=== PATIENT | female | born 1990 | race Caucasian/White ===

== ENCOUNTER → 2023-04-30 08:51 | Outpatient (BNVA) | payer BC, SELFPAY | PROVIDERS: Visit Provider Physician Assistant ==

== ENCOUNTER 2023-05-07 08:01 | Outpatient (AMB) | payer BC, SELFPAY ==
--- NOTE | 2023-05-07 10:31 | A.OFFVIS_ITS ---
Intake VS Expanded 05/07/23 10:44 BP 162/86 H Height 5 ft 4 in Weight 277 lb 8 oz BMI 47.6 Body Fat % 48.8 Body Fat Mass 135.6 Fat Free Mass 142.2 Visceral Fat Rating 15 Body Water % 48.8 Body Water Mass 101.8 Basal Metabolic Rate/Score 2,054 Intake Visit Reasons: TV [employer] SAWMILL SWL BMI 47.7 Allergies doxycycline Allergy (Intermediate, Verified 05/07/23 10:31) Vomiting Medication List - Last Reconciled 05/07/23 by Jamel Richardson MD coenzyme Q10 (Ultra CoQ10) 75 mg PO DAILY labetalol mg PO multivitamin 1 tab PO DAILY omega 0-zrl-rgm-fish oil 300-1,000 mg (Fish Oil) 1 cap PO DAILY HPI TV [employer] SAWMI[facility] SWL BMI 47.7 HPI Details Start time: 10.27am, End time: 11.13am ?I spent 41 minutes speaking with the patient on the phone plus an additional 5 minutes reviewing and updating records for a total of 46 minutes HPI Comments History of Present Illness Details Previous weight loss efforts: Weight watchers, Keto, low carb diet Wakes up: 7am, Sleeps: 11pm Breakfast: 9am (Kinyarwanda yogurt) Lunch: 1pm (as dinner) Dinner: 8.30-9pm (pasta, chicken, tacos Snacks: 5pm (chips and salsa, crackers and cheese), 9pm (snacks) Exercise: walking outside occasionally, Has a stationary bike at home Fluids: Coffee (12oz/day, sugar and milk), tea: none, soda: 1-2 cups/wk (diet soda), juice: none, ETOH: 1-2/month [facility] Medical History (Updated 05/07/23 @ 10:36 by Jamel Richardson MD) Infertility associated with anovulation Hypertension Morbid obesity Surgical History (Updated 04/30/23 @ 09:25 by WAGNER Gutierrez) History of D&C Family History (Updated 04/30/23 @ 09:20 by WAGNER Gutierrez) Mother No problems noted. 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 Plan for lap sleeve gastrectomy. If diaphragmatic or ventral hernias are present at time of surgery, these will be repaired laparoscopically as well. Risks and complications were discussed in detail including possible conversion to an open procedure, anastomotic leak, bleeding requiring transfusion, small bowel obstruction, , DVT and pulmonary embolism, cardiac, or pulmonary complications, as detention complications such as anastomotic ulcer, insufficient weight loss and vitamin deficiencies. I emphasized the importance of close follow-up, adherence to instructions and good communication. 2. Nutritional counseling. Start with 2 CELEBRATE REBUILD protein (buy at [facility] [employer]) shakes (ONE scoop EACH in 8oz low fat unsweetened almond milk each) at 8am-10am and 11am-1pm, 1 protein bar (CELEBRATE protein bars, buy at [facility]) at 2pm-4pm, HALF protein bar at 5-6pm, dinner at 7pm (10 forks of protein and 10 forks of salad/vegetables) AND one more protein bar after dinner at 9pm-11pm. So you do 2 protein shakes, 2.5 protein bars and one meal per day. Meal to include lean meat (beef, fish, pork, turkey, chicken), or tamazight yogurt, or egg whites, or beans with a salad with olive oil and fruits (berries, pears, apples, kiwi). Avoid salt, breads, potatoes, rice, pasta, desserts. 3. Each shake would be drunk slowly, like coffee in a period of 2 hours. 4. Cut each bar in 4 pieces and eat each piece in 30min ?to make each bar last 2 hours. 5. I emphasized the importance of measuring accurately the food portion and measure it when serving the food in plate 6. The meal portions include 10 full-size forks of meat and 10 full-size forks of salad. You always eat the meat portion but you can replace up to 5 forks for salad/vegetables with rice, potatoes or pasta, or a fruit ?if you like. The less you do it the better weight loss will be. 7. One full-size fork is what it can be scooped on the fork without falling aside and not what can be bit with the fork. Use regular forks like those you find in a typical restaurant. 8.? Please send me weight measurements as soon as possible and then once a week. Always include your diet and exercise plan. 9. Start stationary bike at a resistance level of 4.0 Increase level by 1.0 every 3 min to a max level of 10.0. Stay at this level for 3 min and then return to level 4.0 and repeat same steps until 300 calories are burned. Velocity target is 12mph and heart rate is 145 bpm. Goal is to burn 2000 calories per week on exercise, which means either 300 calories daily, or 400 calories 5 days per week, or 500 calories 4 days per week, or 650 calories 3 days per week. 10.?Although you have difficulty conceiving, weight loss can improve dramatically your ability to conceive and it is important of avoiding and for at least 18 months postoperatively and has been discussed at the infosession. 11. Goal is to lose at least 1.5-2lbs per week 12. Goal to lose 10% of your weight before surgery, which is about 27lbs. Ultimate weight goal: 250lbs before surgery 13. Please follow the diet plan exactly without any change. If you don't like something about the plan or you feel hungry you need to communicate with me so I can help you revise the plan. You should not change the plan yourself. (2) Hypertension: Code(s): I10 - Essential (primary) hypertension (3) Infertility associated with anovulation: Code(s): N97.0 - Female infertility associated with anovulation Orders: Orders Insulin Today E66.01 - Morbid (severe) obesity due to excess calories, I10 - Essential (primary) hypertension, N97.0 - Female infertility associated with anovulation Lipid Panel Today E66.01 - Morbid (severe) obesity due to excess calories, I10 - Essential (primary) hypertension, N97.0 - Female infertility associated with anovulation IRON PROFILE Today E66.01 - Morbid (severe) obesity due to excess calories, I10 - Essential (primary) hypertension, N97.0 - Female infertility associated with anovulation Zinc Today E66.01 - Morbid (severe) obesity due to excess calories, I10 - Essential (primary) hypertension, N97.0 - Female infertility associated with anovulation Comprehensive Met. Panel Today E66.01 - Morbid (severe) obesity due to excess calories, I10 - Essential (primary) hypertension, N97.0 - Female infertility associated with anovulation Vitamin A Today E66.01 - Morbid (severe) obesity due to excess calories, I10 - Essential (primary) hypertension, N97.0 - Female infertility associated with anovulation PTHI Today E66.01 - Morbid (severe) obesity due to excess calories, I10 - Essential (primary) hypertension, N97.0 - Female infertility associated with anovulation TSH reflex Free T4 Today E66.01 - Morbid (severe) obesity due to excess calories, I10 - Essential (primary) hypertension, N97.0 - Female infertility associated with anovulation H Pylori Breath Test Today E66.01 - Morbid (severe) obesity due to excess artem jenifer, I10 - Essential (primary) hypertension, N97.0 - Female infertility associated with anovulation Vitamin D 25-OH Total Today E66.01 - Morbid (severe) obesity due to excess calories, I10 - Essential (primary) hypertension, N97.0 - Female infertility associated with anovulation FL upper GI w air Today E66.01 - Morbid (severe) obesity due to excess calories, I10 - Essential (primary) hypertension, N97.0 - Female infertility associated with anovulation Complete Blood Count Auto Diff Today E66.01 - Morbid (severe) obesity due to excess calories, I10 - Essential (primary) hypertension, N97.0 - Female infertility associated with anovulation Vitamin B12 and Folate Today E66.01 - Morbid (severe) obesity due to excess calories, I10 - Essential (primary) hypertension, N97.0 - Female infertility associated with anovulation Vitamin B1 Today E66.01 - Morbid (severe) obesity due to excess calories, I10 - Essential (primary) hypertension, N97.0 - Female infertility associated with anovulation C Reactive Protein Today E66.01 - Morbid (severe) obesity due to excess calories, I10 - Essential (primary) hypertension, N97.0 - Female infertility associated with anovulation Ferritin Today E66.01 - Morbid (severe) obesity due to excess calories, I10 - Essential (primary) hypertension, N97.0 - Female infertility associated with anovulation Hemoglobin A1c Today E66.01 - Morbid (severe) obesity due to excess calories, I10 - Essential (primary) hypertension, N97.0 - Female infertility associated with anovulation US abdomen comp w elastography Today E66.01 - Morbid (severe) obesity due to excess calories, I10 - Essential (primary) hypertension, N97.0 - Female infertility associated with anovulation XR chest 2V Today E66.01 - Morbid (severe) obesity due to excess calories, I10 - Essential (primary) hypertension, N97.0 - Female infertility associated with anovulation ECG 12 lead EKG Today E66.01 - Morbid (severe) obesity due to excess calories, I10 - Essential (primary) hypertension, N97.0 - Female infertility associated with anovulation Referrals Nutrition/Dietitian Referral E66.01 - Morbid (severe) obesity due to excess calories, I10 - Essential (primary) hypertension, N97.0 - Female infertility associated with anovulation Behavioral Health Referral E66.01 - Morbid (severe) obesity due to excess calories, I10 - Essential (primary) hypertension, N97.0 - Female infertility associated with anovulation Telehealth Telehealth Location of provider rendering services: practice address Location of patient: address on file Patient Identification confirmed using: Name, : Yes Telehealth method: voice only Patient verbally consented to treatment: Yes Patient verbally consented to billing insurance company: Yes Patient informed of any privacy concerns related to visit: Yes Minutes spent on Phone/Video with Pt.: 46 Coding Level of Care Code Tele New Pt Level 4 (02685) Diagnoses Morbid obesity E66.01 Hypertension I10 Infertility associated with anovulation N97.0 Time Spent (min) 46
[2023-05-07 10:44] VITALS: BP 162/86; BMI 47.6
== END 2023-05-07 11:13 | disposition home or self-care (01) ==
LOC: HO.HBS 08:01
PROVIDERS: Visit Provider Surgery
DX: E66.01 Morbid (severe) obesity due to excess calories (principal); Z68.42 Body mass index [BMI] 45.0-49.9, adult; I10 Essential (primary) hypertension; N97.0 Female infertility associated with anovulation
CPT/HCPCS: 99443

== ENCOUNTER → 2023-05-07 08:01 | Outpatient (BNVA) | payer BC, SELFPAY | PROVIDERS: Visit Provider Surgery ==

== ENCOUNTER 2023-05-14 09:02 | Outpatient (REF) | payer BC, SELFPAY ==
--- NOTE | ~2023-05-14 | XR_ITS ---
EXAMINATION: XR CHEST 2 VIEWS CLINICAL INFORMATION: Morbid obesity. COMPARISON: None. TECHNIQUE: Frontal and lateral views of the chest were obtained. FINDINGS: The heart, great vessels, pulmonary vasculature and mediastinum are normal. The lungs show no focal infiltrate, effusion or pneumothorax. There is no acute osseous abnormality. XR/XR chest 2V IMPRESSION: No active cardiopulmonary disease.
[2023-05-14 09:29] LABS: MANUAL DIFF FLAG NO
[2023-05-14 09:57] LABS: Basophils Percent Auto 0.4 % (0-2); Eosinophils Absolute Auto 0.4 X10*3/uL (0.0-0.4); Eosinophils Percent Auto 5.4 % (0-4); Hematocrit 39.5 % (37.0-47.0); Hemoglobin 13.9 g/dl (12.0-16.0); Imm Gran Abs Auto 0.02 X10*3/uL (0.00-0.03); Imm Gran Pct Auto 0.3 % (0.0-0.4); Lymphocytes Absolute Auto 1.9 X10*3/uL (1.2-4.9); Lymphocytes Percent Auto 27.8 % (20-40); Mean Corpuscular HGB Conc 35.2 g/dl (31.0-35.0); Mean Corpuscular Hemoglobin 30.8 pg (27.0-33.0); Mean Corpuscular Volume 87.6 fL (80.0-98.0); Mean Platelet Volume 10.1 fL (9.4-12.3); Monocytes Absolute Auto 0.4 X10*3/uL (0.1-1.2); Monocytes Percent Auto 6.4 % (2-11); Neutrophils Absolute Auto 4.1 x10*3/uL (2.0-8.3); Neutrophils Percent Auto 59.7 % (45-73); Platelet Count 313 X10*3/uL (160-400); Red Blood Count 4.51 X10*6/uL (4.20-5.50); Red Cell Distribution Width 11.8 % (11.0-16.0); White Blood Count 6.8 X10*3/uL (4.8-10.8)
[2023-05-14 10:29] LABS: Alanine Aminotransferase 26 U/L (0-31); Albumin Level 4.2 g/dL (3.5-5.0); Alkaline Phosphatase 80 U/L (39-117); Anion Gap 13 (12-20); Aspartate Amino Transferase 13 U/L (5-31); Bilirubin Total 1.1 mg/dL (0.0-1.0); Blood Urea Nitrogen 9 mg/dL (9-16); C Reactive Protein 1.11 mg/dL (< or = 0.50); Calcium 9.3 mg/dL (8.4-10.2); Carbon Dioxide 22 mmol/L (22-29); Chloride 109 mmol/L (96-108); Cholesterol 165 mg/dL (<200); Estimated Glomerular Filt Rate > 60; Glucose Random 104 mg/dL (60-115); HDL Cholesterol 40 mg/dL (>40); Iron 142 mcg/dL (30-160); LDL Cholesterol Calculated 108 mg/dL (<100); Percent Iron Saturation 47 % (15-50); Sodium 140 mmol/L (135-145); Total Iron Binding Capacity 305 mcg/dL (228-428); Total Protein 6.8 g/dL (6.5-8.0); Triglycerides 86 mg/dL (<150); Unsaturated Iron Binding 163 ug/dL
[2023-05-14 10:47] LABS: Ferritin 86 ng/mL (10-122); Insulin 8 uU/mL (2-29); TSH reflex Free T4 0.95 uIU/mL (0.32-4.0); Vitamin D 25-OH Total 36.1 ng/mL (>30)
[2023-05-18 01:28] LABS: Vitamin A 35 mcg/dL (38-98)
[2023-05-18 04:23] LABS: Zinc 64 mcg/dL (60-130)
[2023-05-19 08:03] LABS: Vitamin B1 <6 nmol/L (8-30)
== END 2023-05-14 09:03 | disposition home or self-care (01) ==
LOC: HO.LAB 09:02
PROVIDERS: PCP Nurse Practitioner; Visit Provider Surgery
DX: E66.01 Morbid (severe) obesity due to excess calories (principal); I10 Essential (primary) hypertension; N97.0 Female infertility associated with anovulation
CPT/HCPCS: 36415; 71046; 80053; 80061; 82306; 82607; 82728; 82746; 83036; 83525; 83540; 83970; 84425; 84443; 84590; 84630; 85025; 86140

== ENCOUNTER → 2023-05-18 07:26 | Outpatient (REF) | payer BC, SELFPAY ==
--- NOTE | 2023-05-18 07:31 | ECG_ITS ---
Test Reason : e66.01 Blood Pressure : / mmHG Vent. Rate : 078 BPM Atrial Rate : 078 BPM P-R Int : 160 ms QRS Dur : 084 ms QT Int : 398 ms P-R-T Axes : 049 018 035 degrees QTc Int : 453 ms Normal sinus rhythm Normal ECG No previous ECGs available Referred By: Jamel Richardson Electronically Signed By:PALOMO LOZANO MD
== END ==
LOC: HO.CARD 07:26
PROVIDERS: Visit Provider Surgery
DX: I10 Essential (primary) hypertension (principal); E66.01 Morbid (severe) obesity due to excess calories; N97.0 Female infertility associated with anovulation
CPT/HCPCS: 93005

== ENCOUNTER 2023-06-08 08:04 | Outpatient (AMB) | payer BC, SELFPAY ==
--- OUTSIDE RECORDS SUMMARY | 2023-06-08 08:07 | XMS_ITS | Continuity of Care Document ---
Author Name Unknown Organization [facility] e Medicine Address [address] [place] [address], [address]t [address] [place] [phone]- Care Team Providers Care Field Services Manager Name Role Phone Ron ASTROBIOLOGIST, Nancy Mensah Primary Care Physician Encounter [facility] Date(s): 03/03/21 - 03/10/21 [facility] Reproductive Medicine [address] [place] [address], 4th [address] [place] [id number]- Attending Physician: Not on Staff, Attending MD Referring Physician: Lexi Sanchez MD Allergies, Adverse Reactions, Alerts Substance Reaction Severity Status doxycycline 1 Persistent Mild Active 1vomits Medications 1cc syringe with 27 gauge 1/2inch needle 1cc syringe with 27 gauge 1/2inch needle, See Instructions, # 10 each, Refills 0, Tot. Refills 0, Maintenance, Used to give medication., 02/22/21 16:12:00 EDT, Compound, 162.56, cm, 02/18/21 8:28:00 EDT, Height, 117.5, kg, 06/28/20 14:02:00 EST, Dry W... Start Date: 02/22/21 Status: Ordered 3cc 22 gauge 1 1/2in needles 3cc 22 gauge 1 1/2in needles, See Instructions, # 10 each, Refills 5, Tot. Refills 5, Maintenance, for mixing medication, 02/22/21 16:12:00 EDT, Compound, 162.56, cm, 02/18/21 8:28:00 EDT, Height, 117.5, kg, 06/28/20 14:02:00 EST, Dry Weight Start Date: 02/22/21 Status: Ordered CoQ10 See Instructions, By Mouth Daily, 0 Refills, Maintenance, 09/10/20 16:22:00 EST, Partial fill upon patient request if the prescription is for a schedule II opioid drug. Start Date: 09/10/20 Status: Ordered doxycycline hyclate 100 mg oral tablet 1 tablet = 100 mg, By Mouth, 2 times a day, Start the day you start Gonal F injections, # 14 tablet, 5 Refills, Maintenance, 02/22/21 16:13:00 EDT, [facility], Partial fill upon patient request if the prescription is for a schedule II opio... Start Date: 02/22/21 Status: Ordered Fish Oil By Mouth, 0 Refills, Maintenance, 09/10/20 16:21:00 EST, Partial fill upon patient request if the prescription is for a schedule II opioid drug. Start Date: 09/10/20 Status: Ordered Gonal-F 1050 units subcutaneous injection = 300 International_Units, Subcutaneous Injection, 2 times a day, # 6 kit, 5 Refills, Maintenance, 02/22/21 16:13:00 EDT, [facility], Partial fill upon patient request if the prescriptionis for a schedule II opioid drug., 300 Internationa... Start Date: 02/22/21 Status: Ordered Labetalol = 150 mg, By Mouth, 2 times a day, 0 Refills, Maintenance, 01/19/20 14:55:00 EDT Start Date: 01/19/20 Status: Ordered microdose lupron 40mcg/0.1ml microdose lupron 40mcg/0.1ml, See Instructions, # 5 mL, Refills 5, Tot. Refills 5, Maintenance, 10 units subcutaneous injection twice a day, 02/22/21 16:13:00 EDT, Compound, 162.56, cm, 02/18/21 8:28:00 EDT, Height, 117.5, kg, 06/28/20 14:02:00 EST, D... Start Date: 02/22/21 Status: Ordered Omnitrope 5.8 mg subcutaneous injection See Instructions, Mix with all of provided diluent and inject 0.4ml SC Daily with stim meds, # 3 each, 0 Refills, Maintenance, 02/23/21 14:00:00 EDT, [facility], Partial fill upon patient request if the prescription is for a schedule I... Start Date: 02/23/21 Status: Ordered orange capped insulin syringes orange capped insulin syringes, See Instructions, # 30 each, Refills 5, Tot. Refills 5, Maintenance, to use to administer lupron, 02/22/21 16:12:00 EDT, Compound, 162.56, cm, 02/18/21 8:28:00 EDT, Height, 117.5, kg, 06/28/20 14:02:00 EST, Dry Weight Start Date: 02/22/21 Status: Ordered Ortho Micronor 0.35 mg oral tablet 1 tablet = 0.35 mg, By Mouth, Daily, # 28 tablet, 5 Refills, Maintenance, 02/01/21 17:19:00 EDT, Tablet, [facility] #[id number], Partial fill upon patient request if the prescription is for a schedule IIopioid drug., 162.56, cm, 12/07/20 13:23:00 EDT, He... Start Date: 02/01/21 Status: Ordered Ovidrel 250 mcg/0.5 mL subcutaneous solution See Instructions, Inject 2 prefilled syringes when instructed., # 2 each, 5 Refills, Maintenance, 02/22/21 16:13:00 EDT, Solution, [facility], Partial fill upon patient request if the prescription is for a schedule II opioid drug., 162.56,... Start Date: 02/22/21 Status: Ordered Multivitamins By Mouth, Daily, 0 Refills, Maintenance, 06/06/19 16:08:50 EDT Start Date: 06/06/19 Status: Ordered Prometrium 200 mg oral capsule See Instructions, vaginally 3 times a day, # 90 tablet, 5 Refills, Maintenance, 02/22/21 16:12:00 EDT, [facility], Partial fill upon patient request if the prescription is for a schedule II opioid drug., 162.56, cm, 02/18/21 8:28:00 EDT, H... Start Date: 02/22/21 Status: Ordered Vivelle-Dot 0.1 mg/24 hours twice weekly transdermal film, extended release 2 patch, Topically, Every other day, qod start day after egg retrieval, # 32 patch, 5 Refills, Maintenance, 02/22/21 16:12:00 EDT, [facility], Partial fill upon patient request if the prescription is for a schedule II opioid drug., 162.56,... Start Date: 02/22/21 Status: Ordered Zithromax 500 mg oral tablet 2 tablet = 1,000 mg, By Mouth, Once, TAKE WHEN STIM MEDS STARTED. THIS IS A ONE TIME DOSE., # 2 tablet, 0 Refills, Soft Stop, 02/22/21 16:13:00 EDT, Tablet, [facility], Partial fill upon patient request if the prescription is for a schedul... Start Date: 02/22/21 Status: Ordered Social History Social History Type Response Smoking Status Never (less than 100 in lifetime) entered on: 06/06/19 Sex
--- OUTSIDE RECORDS SUMMARY | 2023-06-08 08:07 | XMS_ITS | Continuity of Care Document ---
Author Name Unknown Organization [facility] Address [address] [place] [address], [address]t [address] [place] [id number]- Care Team Providers Care Platform Power Technician Name Role Phone Ron STAFF DEVELOPMENT NURSE, Nancy Mensah Primary Care Physician Encounter [facility] Date(s): 03/30/20 - 04/06/20 [facility] Reproductive Medicine [address] [facility], 4th Floor [address] [place] [phone]- [facility] Attending Physician: Lexi Sanchez MD Allergies, Adverse Reactions, Alerts Substance Reaction Severity Status doxycycline 1 Persistent Mild Active 1vomits Medications 22 g x 1 1/2 inch needle 22 g x 1 1/2 inch needle, See Instructions, # 30 each, Refills 5, Tot. Refills 5, Maintenance, To use to inject Daily Progesterone, 02/19/20 9:15:00 EDT, Compound, 162.56, cm, 12/18/19 13:38:00 EDT, Height Start Date: 02/19/20 Status: Ordered 3 ml syringe with 18 g x 11/2 inch needle 3 ml syringe with 18 g x 11/2 inch needle, See Instructions, # 30 each, Refills 5, Tot. Refills 5, Maintenance, To use to draw up Progesterone, 02/19/20 9:15:00 EDT, Compound, 162.56, cm, 12/18/19 13:38:00 EDT, Height Start Date: 02/19/20 Status: Ordered Labetalol = 150 mg, By Mouth, 2 times a day, 0 Refills, Maintenance, 01/19/20 14:55:00 EDT Start Date: 01/19/20 Status: Ordered Multivitamins By Mouth, Daily, 0 Refills, Maintenance, 06/06/19 16:08:50 EDT Start Date: 06/06/19 Status: Ordered progesterone 50 mg/mL intramuscular solution 50mg/ml 1 ml (sesame oil), Intramuscular, Daily, Begin when instructed., # 30 mL, 5 Refills, Maintenance, 02/19/20 9:16:00 EDT, [facility], 162.56, cm, 12/18/19 13:38:00 EDT, Height Start Date: 02/19/20 Status: Ordered Valium 5 mg oral tablet See Instructions, 1 tablet By Mouth 1 hour prior to transfer procedure. May repeat x 1., # 2 tablet, Refills 1, Tot. Refills 1, Maintenance, 03/03/20 15:58:00 EDT, Instructions Replace Required Details, Route to Pharmacy Electronically, [facility] Start Date: 03/03/20 Status: Ordered Vivelle-Dot 0.1 mg/24 hours twice weekly transdermal film, extended release See Instructions, apply 4 patches and change qod, # 32 each, 3 Refills, Maintenance, 03/03/20 15:58:00 EDT, [id number], 162.56, cm, 03/03/20 7:24:00 EDT, Height Start Date: 03/03/20 Status: Ordered Vital Signs Most recent to oldest [Reference Range]: 1 2 Height 162.56 cm (03/30/20 9:45 AM) 162.56 cm (03/29/20 11:18 AM) Weight 115.9 kg (03/30/20 9:45 AM) Body Mass Index [18.5-24.99] 43.86 *>HHI* (03/30/20 9:45 AM) Blood Pressure [90-138/55-84 mm Hg] 144/ 100mm Hg *H* (03/30/20 9:45 AM) Blood pressure sites Arm, left (03/30/20 9:45 AM) Weight Obtained Via Standing scale (03/30/20 9:45 AM) Social History Social History Type Response Smoking Status Never (less than 100 in lifetime) entered on: 06/06/19 Sex
--- OUTSIDE RECORDS SUMMARY | 2023-06-08 08:07 | XMS_ITS | Continuity of Care Document ---
Author Name Unknown Organization [facility] Address [address] [place] [address], 4t [address] [place] [phone]- Care Team Providers Care Coke Oven Patcher Name Role Phone Ron OUTDOOR FITNESS TRAINER, Nancy Mensah Primary Care Physician Encounter [facility] Date(s): 03/16/22 - 04/15/22 [facility] Reproductive Medicine [address] [facility], 4th Floor [address] [place] [id number] Allergies, Adverse Reactions, Alerts Substance Reaction Severity [...] tablet, 5 Refills, Maintenance, 02/22/21 16:13:00 EDT, [facility], Partial fill upon patient request [...] kit, 5 Refills, Maintenance, 02/22/21 16:13:00 EDT, [facility], Partial fill upon patient request if [...] each, 0 Refills, Maintenance, 02/23/21 14:00:00 EDT, [facility], Partial fill upon patient request [...] 5 Refills, Maintenance, 02/01/21 17:19:00 EDT, Tablet, [facility] #[id number], Partial fill upon patient request if the prescription is for a schedule IIopioid drug., 162.56, cm, 12/07/20 13:23:00 EDT, He... Start Date: 02/01/21 Status: Ordered Ovidrel 250 mcg/0.5 mL subcutaneous solution See Instructions, Inject 2 prefilled syringes when instructed., # 2 each, 5 Refills, Maintenance, 02/22/21 16:13:00 EDT, Solution, [facility], Partial fill upon patient request if the prescription is for a schedule II opioid drug., 162.56,... Start Date: 02/22/21 Status: Ordered Multivitamins By Mouth, Daily, 0 Refills, Maintenance, 06/06/19 16:08:50 EDT Start Date: 06/06/19 Status: Ordered Prometrium 200 mg oral capsule See Instructions, vaginally 3 times a day, # 90 tablet, 5 Refills, Maintenance, 02/22/21 16:12:00 EDT, [facility], Partial fill upon patient request if the prescription is for a schedule II opioid drug., 162.56, cm, 02/18/21 8:28:00 EDT, H... Start Date: 02/22/21 Status: Ordered Vivelle-Dot 0.1 mg/24 hours twice weekly transdermal film, extended release 2 patch, Topically, Every other day, qod start day after egg retrieval, # 32 patch, 5 Refills, Maintenance, 02/22/21 16:12:00 EDT, [facility], Partial fill upon patient request if the prescription is for a schedule II opioid drug., 162.56,... Start Date: 02/22/21 Status: Ordered Zithromax 500 mg oral tablet 2 tablet = 1,000 mg, By Mouth, Once, TAKE WHEN STIM MEDS STARTED. THIS IS A ONE TIME DOSE., # 2 tablet, 0 Refills, Soft Stop, 02/22/21 16:13:00 EDT, Tablet, [facility], Partial fill upon patient request if the prescription is for a schedul... Start Date: 02/22/21 Status: Ordered Problem List Condition Effective Dates Status Health Status Inform ant Severe obesity(Confirmed) Active Social History Social History Type Response Smoking Status Never (less than 100 in lifetime) entered on: 06/06/19 Sex Care Team Personnel Name: Nancy Velasquez NP Address: [address] [place] [address]
--- OUTSIDE RECORDS SUMMARY | 2023-06-08 08:07 | XMS_ITS | Continuity of Care Document ---
Author Name Unknown Organization [facility] e Medicine Address [address] [facility] [address], 4t h [address] [place] [address]- Care Team Providers Care Shaft Mechanic Name Role Phone Ron MAY, Nancy Mensah Primary Care Physician Encounter [facility] [place] Date(s): 01/28/20 - 02/04/20 [facility] [address], 4th [address] [place] [address]- [facility] Attending Physician: Ayesha Darling MD Referring Physician: Nancy Velasquez NP Allergies, Adverse Reactions, Alerts Substance Reaction Severity Status doxycycline 1 Persistent Mild Active 1vomits Medications acetaminophen-oxyCODONE 325 mg-5 mg oral tablet 1, tablet, By Mouth, Every 4 hours, PRN, May fill for less., # 20 tablet, Refills 0, Tot. Refills 0, Maintenance, as needed for pain, 01/31/20 9:22:00 EDT, Route to Pharmacy Electronically, [facility]/pharmacy #[id number] Tablet, Partial fill upon patient request,... Start Date: 01/31/20 Status: Ordered Apri 0.15 mg-0.03 mg oral tablet 1 tablet, By Mouth, Daily, # 30 tablet, 5 Refills, Maintenance, 10/03/19 15:38:00 EST, Tablet, [facility]/pharmacy #[id number], 1 tablet By Mouth Daily, 162.56, cm, 10/03/19 14:57:00 EST, Height Start Date: 10/03/19 Status: Ordered doxycycline hyclate 100 mg oral tablet 1 tablet = 100 mg, By Mouth, 2 times a day, # 28 tablet, 5 Refills, Maintenance, 10/09/19 9:07:00 EST, [facility], 162.56, cm, 10/03/19 14:57:00 EST, Height Start Date: 10/09/19 Status: Ordered Gonal-F 1050 units subcutaneous injection = 225 International_Units, Subcutaneous Injection, 2 times a day, # 5 kit, 5 Refills, Maintenance, 10/09/19 9:07:00 EST, [facility], 225 International_Units Subcutaneous Injection 2 timesa day, 162.56, cm, 10/03/19 14:57:00 EST, Height Start Date: 10/09/19 Status: Ordered Labetalol = 150 mg, By Mouth, 2 times a day, 0 Refills, Maintenance, 01/19/20 14:55:00 EDT Start Date: 01/19/20 Status: Ordered microdose lupron 40mcg/0.1ml microdose lupron 40mcg/0.1ml, See Instructions, # 5 mL, Refills 5, Tot. Refills 5, Maintenance, 10 units subcutaneous injection twice a day, 10/09/19 9:07:00 EST, Compound, 162.56, cm, 10/03/19 14:57:00 EST, Height Start Date: 10/09/19 Status: Ordered orange capped insulin syringes orange capped insulin syringes, See Instructions, # 30 each, Refills 5, Tot. Refills 5, Maintenance, to use to administer lupron, 10/09/19 9:07:00 EST, Compound, 162.56, cm, 10/03/19 14:57:00 EST, Height Start Date: 10/09/19 Status: Ordered Ovidrel 250 mcg/0.5 mL subcutaneous solution See Instructions, Inject 2 prefilled syringes when instructed., # 2 each, 5 Refills, Maintenance, 10/09/19 9:07:00 EST, Solution, [facility], 162.56, cm, 10/03/19 14:57:00 EST, Height Start Date: 10/09/19 Status: Ordered Multivitamins By Mouth, Daily, 0 Refills, Maintenance, 06/06/19 16:08:50 EDT Start Date: 06/06/19 Status: Ordered Prometrium 200 mg oral capsule See Instructions, vaginally 3 times a day, # 90 tablet, 5 Refills, Maintenance, 10/09/19 9:08:00 EST, [facility], 162.56, cm, 10/03/19 14:57:00 EST, Height Start Date: 10/09/19 Status: Ordered Valium 5 mg oral tablet See Instructions, 1 tablet By Mouth 1 hour prior to transfer procedure. May repeat x 1., # 2 tablet, Refills 1, Tot. Refills 1, Maintenance, 02/02/20 10:54:00 EDT, Instructions Replace Required Details, Route to [facility]acy [facility]ically, [facility] Start Date: 02/02/20 Status: Ordered Vivelle-Dot 0.1 mg/24 hours twice weekly transdermal film, extended release 2 patch, Topically, Every other day, qod start day after egg retrieval, # 32 patch, 5 Refills, Maintenance, 10/09/19 9:08:00 EST, [facility], 162.56, cm, 10/03/19 14:57:00 EST, Height Start Date: 10/09/19 Status: Ordered Zithromax 500 mg oral tablet 2 tablet = 1,000 mg, By Mouth, Once, # 2 tablet, 0 Refills, Soft Stop, 10/13/19 9:02:00 EDT, Tablet, [id number], 162.56, cm, 10/03/19 14:57:00 EST, Height Start Date: 10/13/19 Status: Ordered Social History Social History Type Response Smoking Status Never (less than 100 in lifetime) entered on: 06/06/19 Sex
--- OUTSIDE RECORDS SUMMARY | 2023-06-08 08:08 | XMS_ITS | Continuity of Care Document ---
Author Name Unknown Organization [facility] Address [address] [place] [address]- Care Team Providers Care Information Technology Director Name Role Phone Ron MAY, Nancy Mensah Primary Care Physician Encounter [facility] Date(s): 11/17/20 - 11/17/[address] [address]- Discharge Disposition: A-D/C Home Attending Physician: Chrissy Medina MD Admitting Physician: Chrissy Medina MD Referring Physician: Chrissy Medina MD Allergies, Adverse Reactions, Alerts Substance Reaction Severity Status doxycycline 1 Persistent Mild Active 1vomits Medications Apri 0.15 mg-0.03 mg oral tablet 1 tablet, By Mouth, Daily, # 28 tablet, 5 Refills, Maintenance, 09/28/20 17:13:00 EST, Tablet, [facility]/pharmacy #[id number], Partial fill upon patient request if the prescription is for a schedule II opioid drug., 1 tablet By Mouth Daily, 162.56, cm, 09/10/20 1... Start Date: 09/28/20 Status: Ordered CoQ10 See Instructions, By Mouth Daily, 0 Refills, Maintenance, 09/10/20 16:22:00 EST, Partial fill upon patient request if the prescription is for a schedule II opioid drug. Start Date: 09/10/20 Status: Ordered Fish Oil By Mouth, 0 Refills, Maintenance, 09/10/20 16:21:00 EST, Partial fill upon patient request if the prescription is for a schedule II opioid drug. Start Date: 09/10/20 Status: Ordered Gonal-F 1050 units subcutaneous injection = 225 International_Units, Subcutaneous Injection, 2 times a day, # 5 kit, 5 Refills, Maintenance, 09/30/20 14:07:00 EST, [facility], Partial fill upon patient request if the prescriptionis for a schedule II opioid drug., 225 Internationa... Start Date: 09/30/20 Status: Ordered Labetalol = 150 mg, By Mouth, 2 times a day, 0 Refills, Maintenance, 01/19/20 14:55:00 EDT Start Date: 01/19/20 Status: Ordered microdose lupron 40mcg/0.1ml microdose lupron 40mcg/0.1ml, See Instructions, # 5 mL, Refills 5, Tot. Refills 5, Maintenance, 10 units subcutaneous injection twice a day, 09/30/20 14:07:00 EST, Compound, 162.56, cm, 09/10/20 16:19:00 EST, Height, 117.5, kg, 06/28/20 14:02:00 EST,... Start Date: 09/30/20 Status: Ordered orange capped insulin syringes orange capped insulin syringes, See Instructions, # 30 each, Refills 5, Tot. Refills 5, Maintenance, to use to administer lupron, 09/30/20 14:08:00 EST, Compound, 162.56, cm, 09/10/20 16:19:00 EST, Height, 117.5, kg, 06/28/20 14:02:00 EST, Dry Weight Start Date: 09/30/20 Status: Ordered Ovidrel 250 mcg/0.5 mL subcutaneous solution See Instructions, Inject 2 prefilled syringes when instructed., # 2 each, 5 Refills, Maintenance, 09/30/20 14:07:00 EST, Solution, [facility], Partial fill upon patient request if the prescription is for a schedule II opioid drug., 162.56,... Start Date: 09/30/20 Status: Ordered oxyCODONE 5 mg oral tablet See Instructions, PRN, 1 tablet By Mouth Every 4-6 hours, # 10 tablet, Refills 0, Tot. Refills 0, Maintenance, Pain , Moderate, 11/10/20 16:10:00 EDT, Instructions Replace Required Details, Route to Pharmacy Electronically, [facility]/pharmacy #[id number], Partial... Start Date: 11/10/20 Status: Ordered Multivitamins By Mouth, Daily, 0 Refills, Maintenance, 06/06/19 16:08:50 EDT Start Date: 06/06/19 Status: Ordered Prometrium 200 mg oral capsule See Instructions, vaginally 3 times a day, # 90 tablet, 5 Refills, Maintenance, 09/30/20 14:07:00 EST, [facility], Partial fill upon patient request if the prescription is for a schedule II opioid drug., 162.56, cm, 09/10/20 16:19:00 EST,... Start Date: 09/30/20 Status: Ordered Valium 5 mg oral tablet See Instructions, 1 tablet By Mouth 1 hour prior to transfer procedure. May repeat x 1., # 2 tablet, Refills 1, Tot. Refills 1, Maintenance, 11/10/20 16:10:00 EDT, Instructions Replace Required Details, Route to Pharmacy Electronically, [facility]/pharmacy... Start Date: 11/10/20 Status: Ordered Vivelle-Dot 0.1 mg/24 hours twice weekly transdermal film, extended release 2 patch, Topically, Every other day, qod start day after egg retrieval, # 32 patch, 5 Refills, Maintenance, 09/30/20 14:08:00 EST, [facility], Partial fill upon patient request if the prescription is for a schedule II opioid drug., 162.56,... Start Date: 09/30/20 Status: Ordered Zithromax 500 mg oral tablet 2 tablet = 1,000 mg, By Mouth, Once, # 2 tablet, 0 Refills, Soft Stop, 09/30/20 14:07:00 EST, Tablet, [facility], Partial fill upon patient request if the prescription is for a schedule II opioid drug., 162.56, cm, 09/10/20 16:19:00 EST, H... Start Date: 09/30/20 Status: Ordered Social History Social History Type Response Smoking Status Never (less than 100 in lifetime) entered on: 06/06/19 Sex
--- OUTSIDE RECORDS SUMMARY | 2023-06-08 08:08 | XMS_ITS | Continuity of Care Document ---
Author Name Unknown Organization [facility] Address [address], 4t [address] [place] [address]- Care Team Providers Care Custom Framing Specialist Name Role Phone [employer] CONDUCTOR/ENGINEER, Nancy Mensah Primary Care Physician [place] [facility] [place] 04/22/20 [facility] [address], 4th [address] [place] [address]- [facility] Allergies, Adverse Reactions, Alerts Substance Reaction Severity Status doxycycline 1 Persistent Mild Active 1vomits Medications Labetalol = 150 mg, By Mouth, 2 times a day, 0 Refills, Maintenance, 01/19/20 14:55:00 EDT Start Date: 01/19/20 Status: Ordered ovidrel 250 mcg ovidrel 250 mcg, See Instructions, # 2 each, Refills 5, Tot. Refills 5, Maintenance, Inject 2 prefilled syringes x1 by subcutaneous Injection Once, 04/21/20 16:51:00 EDT, Compound, 162.56, cm, 03/30/20 9:45:00 EDT, Height Start Date: 04/21/20 Status: Ordered Multivitamins By Mouth, Daily, 0 Refills, Maintenance, 06/06/19 16:08:50 EDT Start Date: 06/06/19 Status: Ordered Prometrium 200 mg oral capsule See Instructions, Insert 1 vaginally BID, # 60 tablet, 5 Refills, Maintenance, 04/21/20 16:51:00 EDT, [facility], 162.56, cm, 03/30/20 9:45:00 EDT, Height Start Date: 04/21/20 Status: Ordered Social History Social History Type Response Smoking Status Never (less than 100 in lifetime) entered on: 06/06/19 Sex
--- OUTSIDE RECORDS SUMMARY | 2023-06-08 08:08 | XMS_ITS | Continuity of Care Document ---
Author Name Unknown Organization [facility] e Medicine Address [address] [place] [address], 4t [address] [place] [address]- Care Team Providers Care Pre Sales Technical Consultant Name Role Phone Ron CAMERA TECHNICIAN, Nancy Mensah Primary Care Physician Encounter [facility] Date(s): 04/02/20 - 05/02/20 [facility] [address] [place] [address], 4th [address] [place] [address]- [facility] Allergies, Adverse Reactions, Alerts Substance Reaction Severity [...] EDT, Height Start Date: 04/21/20 Status: Ordered Valium 5 mg oral tablet 5 mg, 1, tablet, By Mouth, Once, one hour prior to procedure, may repeat x 1 as needed, # 2 tablet,Refills 0, Tot. Refills 0, Soft Stop, 05/01/20 14:18:00 EDT, Route to Pharmacy Electronically, [facility]/pharmacy #[id number], 162.56, cm, 03/30/20 9:45:00 EDT, He... Start Date: 05/01/20 Status: Ordered Social History Social History Type Response Smoking Status Never (less than 100 in lifetime) entered on: 06/06/19 Sex
--- OUTSIDE RECORDS SUMMARY | 2023-06-08 08:08 | XMS_ITS | Continuity of Care Document ---
Author Name Unknown Organization [facility] e Medicine Address [address] [facility], 4t [address] [place] [address]- Care Team Providers Care Blending Coordinator Name Role Phone Ron SENIOR LINUX ADMINISTRATOR, Nancy Mensah Primary Care Physician Encounter [facility] [place] Date(s): 03/05/20 - 04/04/20 [facility] Rep[facility]ductive [facility] [address] [facility], 4th [address] [place] [address] [facility] Allergies, Adverse Reactions, Alerts Substance Reaction [...] EDT, Height Start Date: 03/03/20 Status: Ordered Social History Social History Type Response Smoking Status Never (less than 100 in lifetime) entered on: 06/06/19 Sex
--- OUTSIDE RECORDS SUMMARY | 2023-06-08 08:08 | XMS_ITS | Continuity of Care Document ---
Author Name Unknown Organization [facility] e Medicine Address [address] [facility], 4t h [address] [place] [address]- Care Team Providers Care Diagnostic Medical Sonographer Name Role Phone Melissa ANGLE DOZER OPERATOR, Nancy Mensah Primary Care Physician Encounter [facility] [place] Date(s): 12/18/20 - 01/17/21 [facility] Rep[facility]ductive [facility] [address] [facility], 4th [address] [place] [address]- Attending Physician: Odilia Hilario Admitting Physician: Odilia Hilario Referring Physician: AdmtrOdilia Allergies, Adverse Reactions, Alerts Substance Reaction Severity Status doxycycline 1 Persistent Mild Active 1vomits Medications CoQ10 See Instructions, By Mouth Daily, 0 Refills, Maintenance, 09/10/20 16:22:00 EST, Partial fill upon patient request if the prescription is for a schedule II opioid drug. Start Date: 09/10/20 Status: Ordered Fish Oil By Mouth, 0 Refills, Maintenance, 09/10/20 16:21:00 EST, Partial fill upon patient request if the prescription is for a schedule II opioid drug. Start Date: 09/10/20 Status: Ordered Labetalol = 150 mg, By Mouth, 2 times a day, 0 Refills, Maintenance, 01/19/20 14:55:00 EDT Start Date: 01/19/20 Status: Ordered letrozole 2.5 mg oral tablet 2 tablets, By Mouth, Daily, # 10 tablet, 0 Refills, Maintenance, 12/13/20 14:15:00 EDT, [facility]/pharmacy #[id number], Partial fill upon patient request if the prescription is for a schedule II opioid drug., 162.56, cm, 12/07/20 13:23:00 EDT, Height, 117.5, kg,... Start Date: 12/13/20 Stop Date: 12/18/20 Status: Ordered Medrol 16 mg oral tablet 1 tablet = 16 mg, By Mouth, Daily at bedtime, begin when directed, # 4 tablet, 1 Refills, Maintenance, 12/01/20 18:12:00 EDT, [facility]/pharmacy #[id number], Partial fill upon patient request if the prescriptionis for a schedule II opioid drug., 162.56, cm, ... Start Date: 12/01/20 Status: Ordered Ovidrel 250 mcg/0.5 mL subcutaneous solution See Instructions, Inject 2 prefilled syringes when instructed., # 2 each, 5 Refills, Maintenance, 09/30/20 14:07:00 EST, Solution, [facility], Partial fill upon patient request if the prescription is for a schedule II opioid drug., 162.56,... Start Date: 09/30/20 Status: Ordered Multivitamins By Mouth, Daily, 0 [...] 16:19:00 EST,... Start Date: 09/30/20 Status: Ordered Vivelle-Dot 0.1 mg/24 hours twice weekly transdermal film, extended release 2 patch, Topically, Every other day, qod start day after egg retrieval, # 32 patch, 5 Refills, Maintenance, 09/30/20 14:08:00 EST, [facility], Partial fill upon patient request if the prescription is for a schedule II opioid drug., 162.56,... Start Date: 09/30/20 Status: Ordered Social History Social History Type Response Smoking Status Never (less than 100 in lifetime) entered on: 06/06/19 Sex
--- OUTSIDE RECORDS SUMMARY | 2023-06-08 08:08 | XMS_ITS | Continuity of Care Document ---
Author Name Unknown [facility] Address [address] [facility], [place] [address]- Care Team Providers Care Drawing Operator Name Role Phone Ron INTEGRATED PEST MANAGEMENT TECHNICIAN, Nancy Mensah Primary Care Physician En[place] [facility] [place] Date(s): 08/25/20 - 09/24/20 [facility] [address] [facility], [address] [place] [address]- Allergies, Adverse Reactions, Alerts Substance Reaction Severity Status doxycycline 1 Persistent Mild Active 1vomits Medications Apri 0.15 mg-0.03 mg oral tablet 1 tablet, By Mouth, Daily, # 28 tablet, 5 Refills, Maintenance, 07/13/20 10:01:00 EST, Tablet, [facility]/pharmacy #[id number], Partial fill upon patient request if the prescription is for a schedule II opioid drug., 1 tablet By Mouth Daily, 162.56, cm, 07/13/20 9... Start Date: 07/13/20 Status: Ordered CoQ10 See Instructions, By Mouth [...] 16:08:50 EDT Start Date: 06/06/19 Status: Ordered Social History Social History Type Response Smoking Status Never (less than 100 in lifetime) entered on: 06/06/19 Sex
--- OUTSIDE RECORDS SUMMARY | 2023-06-08 08:08 | XMS_ITS | Continuity of Care Document ---
Author Name Unknown Organization [facility] e Medicine Address [address] [place] [address], 4t [address] [place] [address]- Care Team Providers Care Coke Drawer Hand Name Role Phone Ron MAY, Nancy Mensah Primary Care Physician Encounter [facility] [place] Date(s): 11/10/20 - 11/17/20 [facility] Rep[facility]ductive Medicine [address] [facility], 4th [address] [place] [address]- Attending Physician: Ayesha Darling MD Referring Physician: Nancy Velasquez NP Allergies, Adverse Reactions, Alerts Substance Reaction Severity Status doxycycline 1 Persistent Mild Active 1vomits Medications Apri 0.15 mg-0.03 mg oral tablet 1 tablet, By Mouth, Daily, # 28 tablet, 5 Refills, Maintenance, 09/28/20 17:13:00 EST, Tablet, [facility]/pharmacy #[id number], Partial fill upon patient request [...] Replace Required Details, Route to Pharmacy Electronically, [facility]/pharmacy #[id number], Partial... Start Date: 11/10/20 Status: Ordered Multivitamins [...] Replace Required Details, Route to Pharmacy Electronically, [facility]/pharmacy... Start Date: 11/10/20 Status: Ordered Vivelle-Dot [...]
--- OUTSIDE RECORDS SUMMARY | 2023-06-08 08:08 | XMS_ITS | Continuity of Care Document ---
Author Name Unknown Organization [facility] e Medicine Address Unknown Care Team Providers Care Supervisor Contingents Name Role Phone Ron BUSINESS PLANNING MANAGER, Nancy Mensah Primary Care Physician En[place] [facility] [place] Date(s): 12/21/21 - 01/20/22 [facility] Rep[facility]ductive [facility] Allergies, Adverse Reactions, Alerts Substance Reaction Severity [...] tablet, 5 Refills, Maintenance, 02/22/21 16:13:00 EDT, [facility] Pharmacy, Partial fill upon patient [...] kit, 5 Refills, Maintenance, 02/22/21 16:13:00 EDT, [facility] Pharmacy, Partial fill upon patient [...] 8:28:00 EDT, Height, 117.5, kg, 06/28/20 14:02:00 EST D... Start Date: 02/22/21 Status: Ordered Omnitrope 5.8 mg subcutaneous injection See Instructions, Mix with all of provided diluent and inject 0.4ml SC Daily with stim meds, # 3 each, 0 Refills, Maintenance, 02/23/21 14:00:00 EDT, [facility], Partial fill upon patient request if [...] 5 Refills, Maintenance, 02/01/21 17:19:00 EDT, Tablet, [facility]/pharmacy #[id number], Partial fill upon patient request if the prescription is for a schedule IIopioid drug., 162.56, cm, 12/07/20 13:23:00 EDT, He... Start Date: 02/01/21 Status: Ordered Ovidrel 250 mcg/0.5 mL subcutaneous solution See Instructions, Inject 2 prefilled syringes when instructed., # 2 each, 5 Refills, Maintenance, 02/22/21 16:13:00 EDT, Solution, [facility], Partial fill upon patient request if the prescription is for a schedule II opioid drug., 162.56,... Start Date: 02/22/21 Status: Ordered Multivitamins By Mouth, Daily, 0 Refills, Maintenance, 06/06/19 16:08:50 EDT Start Date: 06/06/19 Status: Ordered Prometrium 200 mg oral capsule See Instructions, vaginally 3 times a day, # 90 tablet, 5 Refills, Maintenance, 02/22/21 16:12:00 EDT, [facility], Partial fill upon patient request if the prescription is for a schedule II opioid drug., 162.56, cm, 02/18/21 8:28:00 EDT, H... Start Date: 02/22/21 Status: Ordered Vivelle-Dot 0.1 mg/24 hours twice weekly transdermal film, extended release 2 patch, Topically, Every other day, qod start day after egg retrieval, # 32 patch, 5 Refills, Maintenance, 02/22/21 16:12:00 EDT, [facility], Partial fill upon patient request if the prescription is for a schedule II opioid drug., 162.56,... Start Date: 02/22/21 Status: Ordered Zithromax 500 mg oral tablet 2 tablet = 1,000 mg, By Mouth, Once, TAKE WHEN STIM MEDS STARTED. THIS IS A ONE TIME DOSE., # 2 tablet, 0 Refills, Soft Stop, 02/22/21 16:13:00 EDT, Tablet, [facility], Partial fill upon patient request if the prescription is for a schedul... Start Date: 02/22/21 Status: Ordered Problem List Condition Effective Dates Status Health Status Inform ant Severe obesity(Confirmed) Active Social History Social History Type Response Smoking Status Never (less than 100 in lifetime) entered on: 06/06/19 Sex
--- OUTSIDE RECORDS SUMMARY | 2023-06-08 08:08 | XMS_ITS | Continuity of Care Document ---
Author Name Unknown Organization [facility] e Medicine Address [address] [place] [address], 4t [address] [place] [address]- Care Team Providers Care Electrical System Specialist Name Role Phone Ron DELIVERY MOTORCYCLE DRIVER, Nancy Mensah Primary Care Physician [place] [facility] [place] Date(s): 08/20/20 - 09/19/20 [facility] Reproductive [facility] [address] [facility], 4th [address] [place] [address] Allergies, Adverse Reactions, Alerts Substance Reaction Severity Status doxycycline 1 Persistent Mild Active 1vomits Medications Apri 0.15 mg-0.03 mg oral tablet 1 tablet, By Mouth, Daily, # 28 tablet, 5 Refills, Maintenance, 07/13/20 10:01:00 EST, Tablet, [id number], Partial fill upon patient request if [...]
--- OUTSIDE RECORDS SUMMARY | 2023-06-08 08:08 | XMS_ITS | Continuity of Care Document ---
Author Name Unknown Organization [facility] e Medicine Address [address] [place] [address], 4t [address] [place] [address]- Care Team Providers Care Senior Sales Associate Name Role Phone Ron STRAP BUCKLER MACHINE, Nancy Mensah Primary Care Physician Encounter [facility] [place] Date(s): 09/22/20 - 10/22/20 [facility] Reproductive Medicine [address] [facility], 4th [address] [place] [address]- Allergies, Adverse Reactions, Alerts Substance Reaction Severity Status doxycycline 1 Persistent Mild Active 1vomits Medications Apri 0.15 mg-0.03 mg oral tablet 1 tablet, By Mouth, Daily, # 28 tablet, 5 Refills, Maintenance, 09/28/20 17:13:00 EST, Tablet, [facility]/pharmacy #[id number], Partial fill upon patient request if [...]
--- OUTSIDE RECORDS SUMMARY | 2023-06-08 08:08 | XMS_ITS | Continuity of Care Document ---
Author Name Unknown Organization [facility] Wilfredo Davis [employer] [facility] Address [address] [facility], [address]t [place] [address]- Care Team Providers Care Livestock Commission Agent Name Role Phone Ron CONTINUOUS DRIER OPERATOR, Nancy Mensah Primary Care Physician Encounter [facility] [place] Date(s): 07/20/20 - 08/19/20 [facility] [address] [facility], 4th [place] [address]- Allergies, Adverse Reactions, Alerts Substance Reaction Severity [...] 07/13/20 9... Start Date: 07/13/20 Status: Ordered Labetalol = 150 mg, By Mouth, 2 times a day, 0 Refills, Maintenance, 01/19/20 14:55:00 EDT Start Date: 01/19/20 Status: Ordered Multivitamins By Mouth, Daily, 0 Refills, Maintenance, 06/06/19 16:08:50 EDT Start Date: 06/06/19 Status: Ordered Social History Social History Type Response Smoking Status Never (less than 100 in lifetime) entered on: 06/06/19 Sex
--- OUTSIDE RECORDS SUMMARY | 2023-06-08 08:08 | XMS_ITS | Continuity of Care Document ---
Author Name Unknown Organization [facility] Address [address] [place] [address], 4t h [address] [place] [address]- Care Team Providers Care Shipyard Painting Supervisor Name Role Phone Ron MAY, Nancy Mensah Primary Care Physician Encounter [facility] [place] Date(s): 04/29/20 - 05/06/20 [facility] [address] [facility], 4th Floor [address] [place] [address]- [facility] Attending Physician: Lexi Sanchez MD Referring Physician: Nancy Velasquez NP Allergies, [...] 05/01/20 14:18:00 EDT, Route to Pharmacy Electronically, [facility]/pharmacy #[id number], 162.56, cm, 03/30/20 9:45:00 EDT, He... Start Date: 05/01/20 Status: Ordered Social History Social History Type Response Smoking Status Never (less than 100 in lifetime) entered on: 06/06/19 Sex
--- OUTSIDE RECORDS SUMMARY | 2023-06-08 08:08 | XMS_ITS | Continuity of Care Document ---
Author Name Unknown Organization [facility] Address [address] [facility], [place] [address]- Care Team Providers Care Computer Engineering Technician Name Role Phone Ron HARBOR MASTER, Nancy Mensah Primary Care Physician [place] [facility] 08/24/20 - 09/23/20 [facility] [address] [facility], 4th [place] [address]- Allergies, Adverse Reactions, Alerts Substance Reaction Severity Status doxycycline 1 Persistent Mild Active 1vomits Medications Apri 0.15 mg-0.03 mg oral tablet 1 tablet, By Mouth, Daily, # 28 tablet, 5 Refills, Maintenance, 07/13/20 10:01:00 EST, Tablet, [facility]/pharmacy #[id number], Partial fill upon patient request [...]
--- OUTSIDE RECORDS SUMMARY | 2023-06-08 08:08 | XMS_ITS | Continuity of Care Document ---
Author Name Unknown Organization [facility] Address [address] [facility], 4t h Floor [address] [place] [address]- Care Team Providers Care Combat Systems Operator Mine Warfare Name Role Phone Ron SPRAY I PAINTER, Nancy Mensah Primary Care Physician Encounter [facility] Date(s): 02/19/20 - 03/20/20 [facility] Reproductive Medicine [address] [facility], 4th Floor [address] [place] [address]- [facility] Allergies, Adverse Reactions, Alerts Substance Reaction Severity [...]
--- OUTSIDE RECORDS SUMMARY | 2023-06-08 08:08 | XMS_ITS | Continuity of Care Document ---
Author Name Unknown Organization [facility] Address [address] [place] [address], 4t h Floor [address] [place] [address]- Care Team Providers Care Candy Separator Enrobing Name Role Phone Ron CLICKER OPERATOR, Nancy Mensah Primary Care Physician Encounter [facility] [place] Date(s): 09/28/20 - 10/28/20 [facility] Reproductive Medicine [address] [facility], 4th Floor [address] [place] [address]- Allergies, Adverse Reactions, Alerts Substance Reaction Severity Status doxycycline 1 Persistent Mild Active 1vomits Medications Apri 0.15 mg-0.03 mg oral tablet 1 tablet, By Mouth, Daily, # 28 tablet, 5 Refills, Maintenance, 09/28/20 17:13:00 EST, Tablet, [facility]/pharmacy #[id number], Partial fill upon patient request if [...]
--- OUTSIDE RECORDS SUMMARY | 2023-06-08 08:08 | XMS_ITS | Continuity of Care Document ---
Author Name Unknown Organization [facility] Address [address] [facility], 4t h Floor [address] [place] [address]- Care Team Providers Care Caramel Candy Maker Name Role Phone Ron TEAM SUPERVISOR, Nancy Mensah Primary Care Physician Encounter [facility] Date(s): 07/07/20 - 08/06/20 [facility] Reproductive Medicine [address], 4th [address] [place] [id number] Allergies, Adverse Reactions, Alerts Substance Reaction Severity [...]
--- OUTSIDE RECORDS SUMMARY | 2023-06-08 08:08 | XMS_ITS | Continuity of Care Document ---
Author Name Unknown Organization [facility] Address [address] [place] [address], 4t h Floor [address] [place] [address]- Care Team Providers Care Equipment Validation Engineer Name Role Phone Ron MAY, Nancy Mensah Primary Care Physician En[place] [facility] Date(s): 03/03/20 - 03/10/20 [facility] Reproductive Medicine [address] [place] [address], 4th Floor [address] [place] [address]- [facility] Attending Physician: Chrissy Medina MD Referring Physician: Nancy Velasquez NP Allergies, [...] Most recent to oldest [Reference Range]: 1 Height 162.56 cm (03/03/20 7:24 AM) Weight 113 kg (03/03/20 7:24 AM) Body Mass Index [18.5-24.99] 42.76 *>HHI* (03/03/20 7:24 AM) Blood Pressure [90-138/55-84 mm Hg] 141/ 81mm Hg *H* (03/03/20 7:24 AM) Blood pressure sites Arm, left (03/03/20 7:24 AM) Weight Obtained Via Standing scale (03/03/20 7:24 AM) Social History Social History Type Response Smoking Status Never (less than 100 in lifetime) entered on: 06/06/19 Sex
--- OUTSIDE RECORDS SUMMARY | 2023-06-08 08:08 | XMS_ITS | Continuity of Care Document ---
Author Name Unknown Organization [facility] ter Address [address] [place] [address]- Care Team Providers Care Shipping Weigher Name Role Phone Ron SUPERVISOR FORCE ADJUSTMENT, Nancy Mensah Primary Care Physician Encounter [facility] [place] Date(s): 12/13/20 - 01/14/[address] [address]- Attending Physician: La Clark MD Admitting Physician: La Clark MD Allergies, Adverse Reactions, Alerts Substance Reaction [...] tablet, 0 Refills, Maintenance, 12/13/20 14:15:00 EDT, [facility]/pharmacy #[id number], Partial fill upon patient request if the prescription is for a schedule II opioid drug., 162.56, cm, 12/07/20 13:23:00 EDT, Height, 117.5, kg,... Start Date: 12/13/20 Stop Date: 12/18/20 Status: Ordered Medrol 16 mg oral tablet 1 tablet = 16 mg, By Mouth, Daily at bedtime, begin when directed, # 4 tablet, 1 Refills, Maintenance, 12/01/20 18:12:00 EDT, [facility]/pharmacy #[id number], Partial fill upon patient request if the prescriptionis for a schedule II opioid drug., 162.56, cm, 02... Start Date: 12/01/20 Status: Ordered Ovidrel 250 [...]
--- OUTSIDE RECORDS SUMMARY | 2023-06-08 08:08 | XMS_ITS | Continuity of Care Document ---
Author Name Unknown Organization [facility] Address [address] [facility], 4t [address] [place] [address]- Care Team Providers Care Meat And Seafood Clerk Name Role Phone Ron MAY, Nancy Mensah Primary Care Physician Encounter [facility] [place] Date(s): 07/13/20 - 07/20/20 [facility] Reproductive Medicine [address] [facility], 4th Floor [address] [place] [id number] Attending Physician: Lexi Sanchez MD Referring Physician: [...] 16:08:50 EDT Start Date: 06/06/19 Status: Ordered Vital Signs Most recent to oldest [Reference Range]: 1 Height 162.56 cm (07/13/20 9:45 AM) Weight 118.2 kg (07/13/20 9:45 AM) Pulse Rate [55-90 bpm] 73 bpm (07/13/20 9:45 AM) Body Mass Index [18.5-24.99] 44.73 *>HHI* (07/13/20 9:45 AM) Blood Pressure [90-138/55-84 mm Hg] 148/ 81mm Hg *H* (07/13/20 9:45 AM) Blood pressure sites Arm, left (07/13/20 9:45 AM) Weight Obtained Via Standing scale (07/13/20 9:45 AM) Social History Social History Type Response Smoking Status Never (less than 100 in lifetime) entered on: 06/06/19 Sex
--- OUTSIDE RECORDS SUMMARY | 2023-06-08 08:08 | XMS_ITS | Continuity of Care Document ---
Author Name Unknown Organization [facility] Address [address] [facility], 4t h Floor [address] [place] [address]- Care Team Providers Care Master Ocean Name Role Phone Ron PERFORATING MACHINE OPERATOR, Nancy Mensah Primary Care Physician Encounter [facility] Date(s): 06/18/20 - 07/18/20 [facility] Reproductive Medicine [address] [place], 4th [address] [place] [id number] Allergies, Adverse Reactions, Alerts Substance Reaction [...]
--- OUTSIDE RECORDS SUMMARY | 2023-06-08 08:08 | XMS_ITS | Continuity of Care Document ---
Author Name Unknown Organization [facility] Address Unknown Care Team Providers Care Chip Bin Conveyor Tender Name Role Phone Ron PROJECT DIRECTOR, Nancy Mensah Primary Care Physician En[facility] [place] Date(s): 12/22/21 - 01/21/22 [facility] Reproductive Medicine Allergies, Adverse Reactions, Alerts [...] tablet, 5 Refills, Maintenance, 02/22/21 16:13:00 EDT, [facility] Pharm[facility], Partial fill upon patient request if [...] kit, 5 Refills, Maintenance, 02/22/21 16:13:00 EDT, [facility] Pharmacy, Partial fill upon patient request if [...] each, 0 Refills, Maintenance, 02/23/21 14:00:00 EDT, [facility], Partial fill upon patient request if [...] 5 Refills, Maintenance, 02/01/21 17:19:00 EDT, Tablet, [facility]/pharmacy #[id number], Partial fill upon patient request if the prescription is for a schedule IIopioid drug., 162.56, cm, 12/07/20 13:23:00 EDT, He... Start Date: 02/01/21 Status: Ordered Ovidrel 250 mcg/0.5 mL subcutaneous solution See Instructions, Inject 2 prefilled syringes when instructed., # 2 each, 5 Refills, Maintenance, 02/22/21 16:13:00 EDT, Solution, [facility] Pharm[facility], Partial fill upon patient request if the prescription is for a schedule II opioid drug., 162.56,... Start Date: 02/22/21 Status: Ordered Multivitamins By Mouth, Daily, 0 Refills, Maintenance, 06/06/19 16:08:50 EDT Start Date: 06/06/19 Status: Ordered Prometrium 200 mg oral capsule See Instructions, vaginally 3 times a day, # 90 tablet, 5 Refills, Maintenance, 02/22/21 16:12:00 EDT, [facility] Pharm[facility], Partial fill upon patient request if the prescription is for a schedule II opioid drug., 162.56, cm, 02/18/21 8:28:00 EDT, H... Start Date: 02/22/21 Status: Ordered Vivelle-Dot 0.1 mg/24 hours twice weekly transdermal film, extended release 2 patch, Topically, Every other day, qod start day after egg retrieval, # 32 patch, 5 Refills, Maintenance, 02/22/21 16:12:00 EDT, [facility] Pharm[facility], Partial fill upon patient request if the prescription is for a schedule II opioid drug., 162.56,... Start Date: 02/22/21 Status: Ordered Zithromax 500 mg oral tablet 2 tablet = 1,000 mg, By Mouth, Once, TAKE WHEN STIM MEDS STARTED. THIS IS A ONE TIME DOSE., # 2 tablet, 0 Refills, Soft Stop, 02/22/21 16:13:00 EDT, Tablet, [facility] Pharm[facility], Partial fill upon patient request if the prescription is for a schedul... Start Date: 02/22/21 Status: Ordered Problem List Condition Effective Dates Status Health Status Inform ant Severe obesity(Confirmed) Active Social History Social History Type Response Smoking Status Never (less than 100 in lifetime) entered on: 06/06/19 Sex
--- OUTSIDE RECORDS SUMMARY | 2023-06-08 08:08 | XMS_ITS | Continuity of Care Document ---
Author Name Unknown Organization [facility] Address [address] [place] [address], 4t [address] [place] [address]- Care Team Providers Care Software Analyst Name Role Phone Ron MAY, Nancy Mensah Primary Care Physician En[place] [facility] [place] Date(s[place] 01/25/20 - 02/01/20 [facility] Reproductive Medicine [address] [place], 4th [address] [place] [address]- [facility] Attending Physician: aL Clark MD Referring Physician: Nancy Velasquez NP Allergies, Adverse Reactions, Alerts Substance Reaction Severity Status doxycycline 1 Persistent Mild Active 1vomits Medications acetaminophen-oxyCODONE 325 mg-5 mg oral tablet 1, tablet, By Mouth, Every 4 hours, PRN, May fill for less., # 20 tablet, Refills 0, Tot. Refills 0, Maintenance, as needed for pain, 01/31/20 9:22:00 EDT, Route to Pharmacy Electronically, [facility]/pharmacy #[id number] Tablet, Partial fill upon patient request,... Start Date: 01/31/20 Status: Ordered Apri 0.15 mg-0.03 mg oral tablet 1 tablet, By Mouth, Daily, # 30 tablet, 5 Refills, Maintenance, 10/03/19 15:38:00 EST, Tablet, [facility]/pharmacy #[id number], 1 tablet By Mouth Daily, 162.56, [...] EST, Height Start Date: 10/09/19 Status: Ordered Vivelle-Dot 0.1 mg/24 hours twice weekly transdermal film, extended release 2 patch, Topically, Every other day, qod start day after egg retrieval, # 32 patch, 5 Refills, Maintenance, 10/09/19 9:08:00 EST, [facility], 162.56, cm, 10/03/19 14:57:00 EST, Height Start Date: 10/09/19 Status: Ordered Zithromax 500 mg oral tablet 2 tablet = 1,000 mg, By Mouth, Once, # 2 tablet, 0 Refills, Soft Stop, 10/13/19 9:02:00 EDT, Tablet, [facility]/pharmacy #[id number], 162.56, cm, 10/03/19 14:57:00 EST, Height Start Date: 10/13/19 Status: Ordered Social History Social History Type Response Smoking Status Never (less than 100 in lifetime) entered on: 06/06/19 Sex
--- OUTSIDE RECORDS SUMMARY | 2023-06-08 08:08 | XMS_ITS | Continuity of Care Document ---
Author Name Unknown Organization [facility] [employer] [facility] Address [address] [place] [address], [place], [place] [address]- Care Team Providers Care Heel Top Lift Splitter Name Role Phone Ron HAND SPRAY OPERATOR, Nancy Mensah Primary Care Physician Encounter [facility] [place] Date(s): 02/22/21 - 03/24/21 [facility] [address] [facility], 4th [place] [address]- Allergies, Adverse Reactions, Alerts Substance Reaction Severity [...] tablet, 5 Refills, Maintenance, 02/22/21 16:13:00 EDT, [facility] Pharmacy, Partial fill upon patient request [...] kit, 5 Refills, Maintenance, 02/22/21 16:13:00 EDT, [facility] Pharmacy, Partial fill upon patient request [...] each, 0 Refills, Maintenance, 02/23/21 14:00:00 EDT, [facility], Partial fill upon patient [...] 5 Refills, Maintenance, 02/01/21 17:19:00 EDT, Tablet, [facility]/pharmacy #[id number], Partial fill upon patient request if the prescription is for a schedule IIopioid drug., 162.56, cm, 12/07/20 13:23:00 EDT, He... Start Date: 02/01/21 Status: Ordered Ovidrel 250 mcg/0.5 mL subcutaneous solution See Instructions, Inject 2 prefilled syringes when instructed., # 2 each, 5 Refills, Maintenance, 02/22/21 16:13:00 EDT, Solution, [facility] Pharm[facility], Partial fill upon patient request if the prescription is for a schedule II opioid drug., 162.56,... Start Date: 02/22/21 Status: Ordered Multivitamins By Mouth, Daily, 0 Refills, Maintenance, 06/06/19 16:08:50 EDT Start Date: 06/06/19 Status: Ordered Prometrium 200 mg oral capsule See Instructions, vaginally 3 times a day, # 90 tablet, 5 Refills, Maintenance, 02/22/21 16:12:00 EDT, [facility] Pharm[facility], Partial fill upon patient request if the prescription is for a schedule II opioid drug., 162.56, cm, 02/18/21 8:28:00 EDT, H... Start Date: 02/22/21 Status: Ordered Vivelle-Dot 0.1 mg/24 hours twice weekly transdermal film, extended release 2 patch, Topically, Every other day, qod start day after egg retrieval, # 32 patch, 5 Refills, Maintenance, 02/22/21 16:12:00 EDT, [facility] Pharm[facility], Partial fill upon patient request if the prescription is for a schedule II opioid drug., 162.56,... Start Date: 02/22/21 Status: Ordered Zithromax 500 mg oral tablet 2 tablet = 1,000 mg, By Mouth, Once, TAKE WHEN STIM MEDS STARTED. THIS IS A ONE TIME DOSE., # 2 tablet, 0 Refills, Soft Stop, 02/22/21 16:13:00 EDT, Tablet, [facility] Pharm[facility], Partial fill upon patient request if the prescription is for a schedul... Start Date: 02/22/21 Status: Ordered Social History Social History Type Response Smoking Status Never (less than 100 in lifetime) entered on: 06/06/19 Sex
--- OUTSIDE RECORDS SUMMARY | 2023-06-08 08:08 | XMS_ITS | Continuity of Care Document ---
Author Name Unknown Organization [facility] e Medicine Address [address] [place] [address], 4t h Floor [address] [place] [address]- Care Team Providers Care Geographic Information Scientist Name Role Phone Ron MAY, Nancy Mensah Primary Care Physician Encounter [facility] [place] Date(s): 10/22/20 - 10/29/20 [facility] Reproductive Medicine [address] [facility], 4th Floor [address] [place] [id number] Attending Physician: Lexi Sanchez MD Referring Physician: Nancy Velasquez NP Allergies, Adverse Reactions, Alerts Substance Reaction Severity Status doxycycline 1 Persistent Mild Active 1vomits Medications Apri 0.15 mg-0.03 mg oral tablet 1 tablet, By Mouth, Daily, # 28 tablet, 5 Refills, Maintenance, 09/28/20 17:13:00 EST, Tablet, [facility]/pharmacy #[id number], Partial fill upon patient request [...]
--- OUTSIDE RECORDS SUMMARY | 2023-06-08 08:08 | XMS_ITS | Continuity of Care Document ---
Author Name Unknown Organization [facility] ter Address [address] [place] [address]- Care Team Providers Care Bilingual Medical Assistant Name Role Phone Nancy Velasquez NP Primary Care Physician Encounter [facility] [place] Date(s): 03/09/20 - 03/09/[address] [address]- [facility] Discharge Disposition: A-D/C Home Attending Physician: Ayesha Darling MD Admitting Physician: Ayesha Darling MD Referring Physician: Ayesha Darling MD Allergies, Adverse Reactions, Alerts Substance Reaction [...]
--- OUTSIDE RECORDS SUMMARY | 2023-06-08 08:09 | XMS_ITS | Continuity of Care Document ---
Author Name Unknown Organization [facility] Address [address] [place] [address], 4t h [address] [place] [address]- Care Team Providers Care Inside Upholsterer Name Role Phone Ron MECHANICAL CAR CHECKER, Nancy Mensah Primary Care Physician En[facility] [place] Date(s): 09/02/20 - 10/02/20 [facility] Reproductive Medicine [address] [facility], 4th Floor [address] [place] [address]- Allergies, Adverse Reactions, Alerts Substance Reaction Severity Status doxycycline 1 Persistent Mild Active 1vomits Medications Apri 0.15 mg-0.03 mg oral tablet 1 tablet, By Mouth, Daily, # 28 tablet, 5 Refills, Maintenance, 09/28/20 17:13:00 EST, Tablet, [facility]/pharmacy #[id number], Partial fill upon patient request if [...]
--- OUTSIDE RECORDS SUMMARY | 2023-06-08 08:09 | XMS_ITS | Continuity of Care Document ---
Author Name Unknown Organization [facility] e Medicine Address [address] [facility], 4t h Floor [address] [place] [address]- Care Team Providers Care Genetic Engineer Name Role Phone Ron OPERATIONS SUPPORT SPECIALIST, Nancy Mensah Primary Care Physician Encounter [facility] [place] Date(s): 08/02/20 - 09/01/20 [facility] Reproductive Medicine [address] [facility], 4th Floor [address] [place] [address] Allergies, Adverse Reactions, Alerts Substance Reaction [...]
--- OUTSIDE RECORDS SUMMARY | 2023-06-08 08:09 | XMS_ITS | Continuity of Care Document ---
Author Name Unknown Organization [facility] Address [address] [place] [address], 4t h Floor [address] [place] [address]- Care Team Providers Care Human Resources Office Assistant Name Role Phone Ron BOARD MILL SUPERVISOR, Nancy Mensah Primary Care Physician Encounter [facility] [place] Date(s): 09/28/20 - 10/28/20 [facility] Reproductive Medicine [address] [facility], 4th Floor [address] [place] [address]- Allergies, Adverse Reactions, Alerts Substance Reaction Severity Status doxycycline 1 Persistent Mild Active 1vomits Medications Apri 0.15 mg-0.03 mg oral tablet 1 tablet, By Mouth, Daily, # 28 tablet, 5 Refills, Maintenance, 09/28/20 17:13:00 EST, Tablet, [facility]/pharmacy #[id number], Partial fill upon patient request [...]
--- OUTSIDE RECORDS SUMMARY | 2023-06-08 08:09 | XMS_ITS | Continuity of Care Document ---
Author Name Unknown Organization [facility] Address [address] [place] [address], [address] [address]- Care Team Providers Care Field Enumerator Name Role Phone Ron SOFTWARE DEVELOPMENT COORDINATOR, Nancy Mensah Primary Care Physician Encounter [facility] Date(s): 02/05/20 - 03/06/20 [facility] [address] [facility], 4th [place] [address]- [facility] Allergies, Adverse Reactions, Alerts Substance Reaction Severity [...]
--- OUTSIDE RECORDS SUMMARY | 2023-06-08 08:09 | XMS_ITS | Continuity of Care Document ---
Author Name Unknown Organization [facility] e Medicine Address Unknown Care Team Providers Care Health Information Assistant Name Role Phone Ron PEDIATRIC NEUROLOGIST, Nancy Mensah Primary Care Physician Encounter [facility] [place] Date(s): 12/21/21 - 01/28/22 [facility] Reproductive Medicine Attending Physician: Not on Staff, Attending MD [...] tablet, 5 Refills, Maintenance, 02/22/21 16:13:00 EDT, [facility], Partial fill upon patient [...] kit, 5 Refills, Maintenance, 02/22/21 16:13:00 EDT, [facility], Partial fill upon patient [...] each, 0 Refills, Maintenance, 02/23/21 14:00:00 EDT, [facility], Partial fill upon patient request if the [...] 5 Refills, Maintenance, 02/01/21 17:19:00 EDT, Tablet, [facility]/pharmacy #[id number], Partial fill upon patient request if the prescription is for a schedule IIopioid drug., 162.56, cm, 12/07/20 13:23:00 EDT, He... Start Date: 02/01/21 Status: Ordered Ovidrel 250 mcg/0.5 mL subcutaneous solution See Instructions, Inject 2 prefilled syringes when instructed., # 2 each, 5 Refills, Maintenance, 02/22/21 16:13:00 EDT, Solution, [facility], Partial fill upon patient request if the prescription is for a schedule II opioid drug., 162.56,... Start Date: 02/22/21 Status: Ordered Multivitamins By Mouth, Daily, 0 Refills, Maintenance, 06/06/19 16:08:50 EDT Start Date: 06/06/19 Status: Ordered Prometrium 200 mg oral capsule See Instructions, vaginally 3 times a day, # 90 tablet, 5 Refills, Maintenance, 02/22/21 16:12:00 EDT, [facility], Partial fill upon patient request if the prescription is for a schedule II opioid drug., 162.56, cm, 02/18/21 8:28:00 EDT, H... Start Date: 02/22/21 Status: Ordered Vivelle-Dot 0.1 mg/24 hours twice weekly transdermal film, extended release 2 patch, Topically, Every other day, qod start day after egg retrieval, # 32 patch, 5 Refills, Maintenance, 02/22/21 16:12:00 EDT, [facility], Partial fill upon patient request if the prescription is for a schedule II opioid drug., 162.56,... Start Date: 02/22/21 Status: Ordered Zithromax 500 mg oral tablet 2 tablet = 1,000 mg, By Mouth, Once, TAKE WHEN STIM MEDS STARTED. THIS IS A ONE TIME DOSE., # 2 tablet, 0 Refills, Soft Stop, 02/22/21 16:13:00 EDT, Tablet, [facility], Partial fill upon patient request if the prescription is for a schedul... Start Date: 02/22/21 Status: Ordered Problem List Condition Effective Dates Status Health Status Inform ant Severe obesity(Confirmed) Active Social History Social History Type Response Smoking Status Never (less than 100 in lifetime) entered on: 06/06/19 Sex
--- OUTSIDE RECORDS SUMMARY | 2023-06-08 08:09 | XMS_ITS | Continuity of Care Document ---
Author Name Unknown Organization [facility] Wilfredo Davis [employer] Address [address], [address]t [place] [address]- Care Team Providers Care Emr Analyst Name Role Phone Ron SUPERVISOR INSECTICIDE, Nancy Mensah Primary Care Physician Encounter [facility] [place] Date(s): 08/02/20 - 09/01/20 [facility] [place] [facility] [address], 4th [place] [address]- Allergies, Adverse Reactions, Alerts Substance Reaction Severity [...]
--- OUTSIDE RECORDS SUMMARY | 2023-06-08 08:09 | XMS_ITS | Continuity of Care Document ---
Author Name Unknown Organization [facility] e Medicine Address [address] [place] [address], [address]t [address] [place] [address]- Care Team Providers Care Custom Wood Stair Builder Name Role Phone Ron SUPERVISOR CRACK OFF, Nancy Mensah Primary Care Physician [place] [facility] [place]20 - 01/29/20 [facility] Reproductive Medicine [address] [facility], 4th [address] [place] [address]- [facility] Attending Physician: Lexi Sanchez MD Referring Physician: Nancy Velasquez NP Allergies, Adverse Reactions, Alerts Substance Reaction Severity Status doxycycline 1 Persistent Mild Active 1vomits Medications Apri 0.15 mg-0.03 mg oral tablet 1 tablet, By Mouth, Daily, # 30 tablet, 5 Refills, Maintenance, 10/03/19 15:38:00 EST, Tablet, [id number], 1 tablet By Mouth Daily, 162.56, [...]
--- OUTSIDE RECORDS SUMMARY | 2023-06-08 08:09 | XMS_ITS | Continuity of Care Document ---
Author Name Unknown Organization [facility] e Medicine Address [address], 4t [address] [place] [address]- Care Team Providers Care Morphologist Name Role Phone [place] BLOCK HANDLER, Nancy Mensah Primary Care Physician Encounter [facility] Date(s): 08/03/20 - 09/02/20 [facility] Reproductive Medicine [address], 4th [address] [place] [id number] Allergies, Adverse [...]
--- OUTSIDE RECORDS SUMMARY | 2023-06-08 08:09 | XMS_ITS | Continuity of Care Document ---
Author Name Unknown Organization [facility] ter Address [address] [place] [address]- Care Team Providers Care Electronic Wirer Name Role Phone [place] GANG SAWYER, Nancy Mensah Primary Care Physician [place] [facility] [place] - 03/01/[address] [address]- [facility] Attending Physician: Ayesha Darling MD Allergies, Adverse Reactions, [...] EDT, Height Start Date: 02/19/20 Status: Ordered acetaminophen-oxyCODONE 325 mg-5 mg oral tablet 1, tablet, By Mouth, Every 4 hours, PRN, May fill for less., # 20 tablet, Refills 0, Tot. Refills 0, Maintenance, as needed for pain, 01/31/20 9:22:00 EDT, Route to Pharmacy Electronically, [facility]/pharmacy #[id number] Tablet, Partial fill upon patient request,... Start Date: 01/31/20 Status: Ordered Apri 0.15 mg-0.03 mg oral tablet 1 tablet, By Mouth, Daily, # 30 tablet, 5 Refills, Maintenance, 10/03/19 15:38:00 EST, Tablet, [facility]/pharmacy #[id number], 1 tablet By Mouth Daily, 162.56, [...] EDT, Height Start Date: 02/19/20 Status: Ordered Prometrium 200 mg oral capsule [...] Replace Required Details, Route to Pharmacy Electronically, [facility]/pharmacy... Start Date: 02/02/20 Status: Ordered Vivelle-Dot 0.1 mg/24 hours twice weekly transdermal film, extended release 2 patch, Topically, Every other day, qod start day after egg retrieval, # 32 patch, 5 Refills, Maintenance, 10/09/19 9:08:00 EST, [facility], 162.56, cm, 10/03/19 14:57:00 EST, Height Start Date: 10/09/19 Status: Ordered Vivelle-Dot 0.1 mg/24 hours twice weekly transdermal film, extended release See Instructions, Change QOD and follow instructions on calendar. Apply (1- 4 patches), # 30 patch,5 Refills, Maintenance, 02/19/20 9:16:00 EDT, [facility], 162.56, cm, 12/18/19 13:38:00EDT, Height Start Date: 02/19/20 Status: Ordered Zithromax 500 mg oral tablet 2 tablet = 1,000 mg, By Mouth, Once, # 2 tablet, 0 Refills, Soft Stop, 10/13/19 9:02:00 EDT, Tablet, [facility]/pharmacy #[id number], 162.56, cm, 10/03/19 14:57:00 EST, Height Start Date: 10/13/19 Status: Ordered Social History Social History Type Response Smoking Status Never (less than 100 in lifetime) entered on: 06/06/19 Sex
--- OUTSIDE RECORDS SUMMARY | 2023-06-08 08:09 | XMS_ITS | Continuity of Care Document ---
Author Name Unknown Organization [facility] Address [address] [place] [address], 4t [address] [place] [address]- Care Team Providers Care Hinging Machine Operator Name Role Phone Ron MAY, Nancy Mensah Primary Care Physician [place] [facility] [place](s): 03/06/21 - 03/13/21 [facility] Reproductive Medicine [address] [facility], 4th [address] [place] [address]- Attending Physician: Ayesha Darling MD Referring Physician: [...] tablet, 5 Refills, Maintenance, 02/22/21 16:13:00 EDT, [facility], Partial fill upon [...] kit, 5 Refills, Maintenance, 02/22/21 16:13:00 EDT, [facility], Partial fill upon patient request [...] Maintenance, 02/01/21 17:19:00 EDT, Tablet, [facility]/pharmacy #[id number], Partial fill upon patient request if the prescription is for a schedule IIopioid drug., 162.56, cm, 12/07/20 13:23:00 EDT, He... Start Date: 02/01/21 Status: Ordered Ovidrel 250 mcg/0.5 mL subcutaneous solution See Instructions, Inject 2 prefilled syringes when instructed., # 2 each, 5 Refills, Maintenance, 02/22/21 16:13:00 EDT, Solution, [facility], Partial fill upon patient request if the prescription is for a schedule II opioid drug., 162.56,... Start Date: 02/22/21 Status: Ordered Multivitamins By Mouth, Daily, 0 Refills, Maintenance, 06/06/19 16:08:50 EDT Start Date: 06/06/19 Status: Ordered Prometrium 200 mg oral capsule See Instructions, vaginally 3 times a day, # 90 tablet, 5 Refills, Maintenance, 02/22/21 16:12:00 EDT, [facility], Partial fill upon patient request if the prescription is for a schedule II opioid drug., 162.56, cm, 02/18/21 8:28:00 EDT, H... Start Date: 02/22/21 Status: Ordered Vivelle-Dot 0.1 mg/24 hours twice weekly transdermal film, extended release 2 patch, Topically, Every other day, qod start day after egg retrieval, # 32 patch, 5 Refills, Maintenance, 02/22/21 16:12:00 EDT, [facility], Partial fill upon patient request if the prescription is for a schedule II opioid drug., 162.56,... Start Date: 02/22/21 Status: Ordered Zithromax 500 mg oral tablet 2 tablet = 1,000 mg, By Mouth, Once, TAKE WHEN STIM MEDS STARTED. THIS IS A ONE TIME DOSE., # 2 tablet, 0 Refills, Soft Stop, 02/22/21 16:13:00 EDT, Tablet, [facility], Partial fill upon patient request if the prescription is for a schedul... Start Date: 02/22/21 Status: Ordered Social History Social History Type Response Smoking Status Never (less than 100 in lifetime) entered on: 06/06/19 Sex
--- OUTSIDE RECORDS SUMMARY | 2023-06-08 08:09 | XMS_ITS | Continuity of Care Document ---
Author Name Unknown Organization [facility] e Medicine Address [address] [place] [address], 4t [address] [place] [address]- Care Team Providers Care Mgmt Specialist Name Role Phone Ron MAY, Nancy Mensah Primary Care Physician Encounter [facility] [place] Date(s): 03/07/21 - 03/14/21 [facility] Reproductive Medicine [address] [place] [address], 4th [address] [place] [id number] Attending Physician: Lexi Sanchez MD Referring Physician: [...] tablet, 5 Refills, Maintenance, 02/22/21 16:13:00 EDT, [facility], Partial fill upon patient request [...] 5 Refills, Maintenance, 02/22/21 16:13:00 EDT, [facility] Pharmacy, Partial fill upon patient [...] each, 0 Refills, Maintenance, 02/23/21 14:00:00 EDT, [facility], Partial fill upon patient [...] 5 Refills, Maintenance, 02/01/21 17:19:00 EDT, Tablet, [facility]/pharmacy #[id number], Partial fill upon patient request if the prescription is for a schedule IIopioid drug., 162.56, cm, 12/07/20 13:23:00 EDT, He... Start Date: 02/01/21 Status: Ordered Ovidrel 250 mcg/0.5 mL subcutaneous solution See Instructions, Inject 2 prefilled syringes when instructed., # 2 each, 5 Refills, Maintenance, 02/22/21 16:13:00 EDT, Solution, [facility], Partial fill upon patient request if the prescription is for a schedule II opioid drug., 162.56,... Start Date: 02/22/21 Status: Ordered Multivitamins By Mouth, Daily, 0 Refills, Maintenance, 06/06/19 16:08:50 EDT Start Date: 06/06/19 Status: Ordered Prometrium 200 mg oral capsule See Instructions, vaginally 3 times a day, # 90 tablet, 5 Refills, Maintenance, 02/22/21 16:12:00 EDT, [facility], Partial fill upon patient request if the prescription is for a schedule II opioid drug., 162.56, cm, 02/18/21 8:28:00 EDT, H... Start Date: 02/22/21 Status: Ordered Vivelle-Dot 0.1 mg/24 hours twice weekly transdermal film, extended release 2 patch, Topically, Every other day, qod start day after egg retrieval, # 32 patch, 5 Refills, Maintenance, 02/22/21 16:12:00 EDT, [facility], Partial fill upon patient request if the prescription is for a schedule II opioid drug., 162.56,... Start Date: 02/22/21 Status: Ordered Zithromax 500 mg oral tablet 2 tablet = 1,000 mg, By Mouth, Once, TAKE WHEN STIM MEDS STARTED. THIS IS A ONE TIME DOSE., # 2 tablet, 0 Refills, Soft Stop, 02/22/21 16:13:00 EDT, Tablet, [facility], Partial fill upon patient request if the prescription is for a schedul... Start Date: 02/22/21 Status: Ordered Social History Social History Type Response Smoking Status Never (less than 100 in lifetime) entered on: 06/06/19 Sex
--- OUTSIDE RECORDS SUMMARY | 2023-06-08 08:09 | XMS_ITS | Continuity of Care Document ---
Author Name Unknown Organization [facility] e Medicine Address [address] [place] [address], 4t [address] [place] [address]- Care Team Providers Care Clinical Rehab Liaison Name Role Phone Ron PERFUME COMPOUNDER, Nancy Mensah Primary Care Physician En[place] [facility] [place] Date(s): 08/24/20 - 09/23/20 [facility] Reproductive Medicine [address] [facility], 4th [address] [place] [address]- Allergies, Adverse Reactions, Alerts Substance Reaction Severity [...]
--- OUTSIDE RECORDS SUMMARY | 2023-06-08 08:09 | XMS_ITS | Continuity of Care Document ---
Author Name Unknown Organization [facility] e Medicine Address [address], 4t h [address] [place] [address]- Care Team Providers Care Child Welfare Manager Name Role Phone Ron GENERAL MACHINIST, Nancy Mensah Primary Care Physician [place] [facility] [place](s): 02/20/20 - 03/21/20 [facility] Reproductive Medicine [address] [facility] [facility], 4th [address] [place] [address]- [facility] Allergies, Adverse Reactions, Alerts Substance [...]
--- OUTSIDE RECORDS SUMMARY | 2023-06-08 08:09 | XMS_ITS | Continuity of Care Document ---
Author Name Unknown Organization [facility] e Medicine Address [address] [place] [address], 4t [address] [place] [address]- Care Team Providers Care Flight Test Supervisor Name Role Phone Ron LIVER TRIMMER, Nancy Mensah Primary Care Physician En[place] [facility] [place] Date(s): 12/25/20 - 01/24/21 [facility] Reproductive Medicine [address] [facility], 4th [address] [place] [id number] Allergies, Adverse Reactions, Alerts Substance Reaction [...] tablet, 0 Refills, Maintenance, 12/13/20 14:15:00 EDT, [facility]/pharmacy #[id number], Partial fill upon patient request if the prescription is for a schedule II opioid drug., 162.56, cm, 12/07/20 13:23:00 EDT, Height, 117.5, kg,... Start Date: 12/13/20 Stop Date: 12/18/20 Status: Ordered Medrol 16 mg oral tablet 1 tablet = 16 mg, By Mouth, Daily at bedtime, begin when directed, # 4 tablet, 1 Refills, Maintenance, 12/01/20 18:12:00 EDT, [facility]/pharmacy #[id number], Partial fill [...]
--- OUTSIDE RECORDS SUMMARY | 2023-06-08 08:09 | XMS_ITS | Continuity of Care Document ---
Author Name Unknown Organization [facility] e Medicine Address Unknown Care Team Providers Care Finished Goods Planner Name Role Phone Ron MAY, Nancy Mensah Primary Care Physician [place] [facility] [place] Date(s): 03/07/21 - 04/06/21 [facility] Reproductive Medicine Attending Physician: Admtr, [id number] Admitting Physician: Admtr, [id number] Referring Physician: Admtr, [id number] Allergies, Adverse Reactions, Alerts Substance Reaction Severity [...] tablet, 5 Refills, Maintenance, 02/22/21 16:13:00 EDT, [facility] Pharmacy, Partial fill upon patient [...] kit, 5 Refills, Maintenance, 02/22/21 16:13:00 EDT, [facility] Pharmacy, Partial fill upon patient [...] each, 0 Refills, Maintenance, 02/23/21 14:00:00 EDT, [facility], Partial fill upon patient request if the [...] 5 Refills, Maintenance, 02/01/21 17:19:00 EDT, Tablet, [facility]/pharmacy #[id number], Partial fill upon patient request if the prescription is for a schedule IIopioid drug., 162.56, cm, 12/07/20 13:23:00 EDT, He... Start Date: 02/01/21 Status: Ordered Ovidrel 250 mcg/0.5 mL subcutaneous solution See Instructions, Inject 2 prefilled syringes when instructed., # 2 each, 5 Refills, Maintenance, 02/22/21 16:13:00 EDT, Solution, [facility], Partial fill upon patient request if the prescription is for a schedule II opioid drug., 162.56,... Start Date: 02/22/21 Status: Ordered Multivitamins By Mouth, Daily, 0 Refills, Maintenance, 06/06/19 16:08:50 EDT Start Date: 06/06/19 Status: Ordered Prometrium 200 mg oral capsule See Instructions, vaginally 3 times a day, # 90 tablet, 5 Refills, Maintenance, 02/22/21 16:12:00 EDT, [facility], Partial fill upon patient request if the prescription is for a schedule II opioid drug., 162.56, cm, 02/18/21 8:28:00 EDT, H... Start Date: 02/22/21 Status: Ordered Vivelle-Dot 0.1 mg/24 hours twice weekly transdermal film, extended release 2 patch, Topically, Every other day, qod start day after egg retrieval, # 32 patch, 5 Refills, Maintenance, 02/22/21 16:12:00 EDT, [facility], Partial fill upon patient request if the prescription is for a schedule II opioid drug., 162.56,... Start Date: 02/22/21 Status: Ordered Zithromax 500 mg oral tablet 2 tablet = 1,000 mg, By Mouth, Once, TAKE WHEN STIM MEDS STARTED. THIS IS A ONE TIME DOSE., # 2 tablet, 0 Refills, Soft Stop, 02/22/21 16:13:00 EDT, Tablet, [facility], Partial fill upon patient request if the prescription is for a schedul... Start Date: 02/22/21 Status: Ordered Social History Social History Type Response Smoking Status Never (less than 100 in lifetime) entered on: 06/06/19 Sex
--- OUTSIDE RECORDS SUMMARY | 2023-06-08 08:09 | XMS_ITS | Continuity of Care Document ---
Author Name Unknown Organization [facility] ter Address [address] [place] [address]- Care Team Providers Care Dragline Engineer Name Role Phone [place] [facility] REP, Nancy Mensah Primary Care Physician Encounter [facility] [place] Date(s): 02/05/20 - 02/05/[address] [address]- [facility] Discharge Disposition: A-D/C Home Attending Physician: [...] 01/31/20 9:22:00 EDT, Route to Pharmacy Electronically, [facility]/pharmacy #[id number] Tablet, Partial fill upon patient request,... Start Date: 01/31/20 Status: Ordered Apri 0.15 mg-0.03 mg oral tablet 1 tablet, By Mouth, Daily, # 30 tablet, 5 Refills, Maintenance, 10/03/19 15:38:00 EST, Tablet, [facility]/pharmacy #[id number], 1 tablet By Mouth Daily, 162.56, [...]
--- OUTSIDE RECORDS SUMMARY | 2023-06-08 08:09 | XMS_ITS | Continuity of Care Document ---
Author Name Unknown Organization [facility] e [facility] Address [address] [facility] [facility], 4t h [address] [place] [address]- Care Team Providers Care Automobile Upholstery Trim Installer Name Role Phone Ron INSPECTOR OF WEIGHTS AND MEASURES, Nancy Mensah Primary Care Physician [place] [facility] [place] 08/19/20 [facility] Reproductive Medicine [address] [facility], 4th [address] [place] [address] Allergies, Adverse Reactions, Alerts Substance Reaction [...]
--- OUTSIDE RECORDS SUMMARY | 2023-06-08 08:09 | XMS_ITS | Continuity of Care Document ---
Author Name Unknown Organization [facility] Wilfredo Bjond [employer] Address [address] [place] [address], [address] [place] [address]- Care Team Providers Care Skidder Operator Name Role Phone [place] INTERLOCKING INSTALLER, Nancy Mensah Primary Care Physician Encounter [facility] [place] Date(s): 01/16/22 - 02/15/22 [facility] [employer] [facility] [address] [facility], 4th [place] [address]- Allergies, Adverse Reactions, Alerts Substance Reaction Severity [...] Refills, Maintenance, 02/22/21 16:13:00 EDT, [facility], [...] kit, 5 Refills, Maintenance, 02/22/21 16:13:00 EDT, [facility], Partial fill upon patient request if [...] each, 0 Refills, Maintenance, 02/23/21 14:00:00 EDT, [facility], Partial fill upon patient request [...]
--- OUTSIDE RECORDS SUMMARY | 2023-06-08 08:09 | XMS_ITS | Continuity of Care Document ---
Author Name Unknown Organization [facility] Wilfredo Davis [employer] [facility] Address [address] [facility], 4t [place] [address]- Care Team Providers Care Letter Carrier Name Role Phone Ron DEVELOPMENT ARCHITECT, Nancy Mensah Primary Care Physician En[place] [facility] [place] Date(s): 08/02/20 - 09/01/20 [facility] [place] [facility] [address] [facility], 4th [place] [address]- Allergies, Adverse Reactions, Alerts Substance Reaction Severity [...]
--- OUTSIDE RECORDS SUMMARY | 2023-06-08 08:09 | XMS_ITS | Continuity of Care Document ---
Author Name Unknown Organization [facility] Wilfred[employer]joann [facility] [employer] Address [address] [place] [address], [address] [place] [address]- Care Team Providers Care Sample Preparation Supervisor Name Role Phone Ron MANAGER ANIMAL, Nancy Mensah Primary Care Physician Encounter [facility] Date(s): 02/24/21 - 03/26/21 [facility] [address] [facility], 4th [place] [address]- Allergies, Adverse Reactions, Alerts Substance Reaction Severity [...] tablet, 5 Refills, Maintenance, 02/22/21 16:13:00 EDT, [facility], Partial fill upon patient request if [...] kit, 5 Refills, Maintenance, 02/22/21 16:13:00 EDT, [facility] Pharmacy, Partial fill upon patient request if [...] each, 0 Refills, Maintenance, 02/23/21 14:00:00 EDT, [facility], Partial fill upon patient request [...] 5 Refills, Maintenance, 02/01/21 17:19:00 EDT, Tablet, [facility]/pharmacy #[id number], Partial fill upon patient request if the prescription is for a schedule IIopioid drug., 162.56, cm, 12/07/20 13:23:00 EDT, He... Start Date: 02/01/21 Status: Ordered Ovidrel 250 mcg/0.5 mL subcutaneous solution See Instructions, Inject 2 prefilled syringes when instructed., # 2 each, 5 Refills, Maintenance, 02/22/21 16:13:00 EDT, Solution, [facility], Partial fill upon patient request if the prescription is for a schedule II opioid drug., 162.56,... Start Date: 02/22/21 Status: Ordered Multivitamins By Mouth, Daily, 0 Refills, Maintenance, 06/06/19 16:08:50 EDT Start Date: 06/06/19 Status: Ordered Prometrium 200 mg oral capsule See Instructions, vaginally 3 times a day, # 90 tablet, 5 Refills, Maintenance, 02/22/21 16:12:00 EDT, [facility], Partial fill upon patient request if the prescription is for a schedule II opioid drug., 162.56, cm, 02/18/21 8:28:00 EDT, H... Start Date: 02/22/21 Status: Ordered Vivelle-Dot 0.1 mg/24 hours twice weekly transdermal film, extended release 2 patch, Topically, Every other day, qod start day after egg retrieval, # 32 patch, 5 Refills, Maintenance, 02/22/21 16:12:00 EDT, [facility], Partial fill upon patient request if the prescription is for a schedule II opioid drug., 162.56,... Start Date: 02/22/21 Status: Ordered Zithromax 500 mg oral tablet 2 tablet = 1,000 mg, By Mouth, Once, TAKE WHEN STIM MEDS STARTED. THIS IS A ONE TIME DOSE., # 2 tablet, 0 Refills, Soft Stop, 02/22/21 16:13:00 EDT, Tablet, [facility] Pharm[facility], Partial fill upon patient request if the prescription is for a schedul... Start Date: 02/22/21 Status: Ordered Social History Social History Type Response Smoking Status Never (less than 100 in lifetime) entered on: 06/06/19 Sex
--- OUTSIDE RECORDS SUMMARY | 2023-06-08 08:09 | XMS_ITS | Continuity of Care Document ---
Author Name Unknown Organization [facility] Wilfredo [email or web address] Address [address] [place] [address], [address] [place] [address]- Care Team Providers Care Kitchen Cleaner Name Role Phone [place] CHIEF FINANCIAL OFFICER, Nancy Mensah Primary Care Physician Encounter [facility] Date(s): 02/01/21 - 03/03/21 [email or web address] [address] [facility], 4th [place] [address]- Allergies, Adverse Reactions, Alerts Substance Reaction Severity [...] tablet, 5 Refills, Maintenance, 02/22/21 16:13:00 EDT, [facility], Partial fill upon patient [...] kit, 5 Refills, Maintenance, 02/22/21 16:13:00 EDT, [facility] Pharm[facility], Partial fill upon patient [...] 0 Refills, Maintenance, 02/23/21 14:00:00 EDT, [facility], Partial fill upon patient request [...] 5 Refills, Maintenance, 02/01/21 17:19:00 EDT, Tablet, [facility]/pharmacy #[id number], Partial fill upon patient request if the prescription is for a schedule IIopioid drug., 162.56, cm, 12/07/20 13:23:00 EDT, He... Start Date: 02/01/21 Status: Ordered Ovidrel 250 mcg/0.5 mL subcutaneous solution See Instructions, Inject 2 prefilled syringes when instructed., # 2 each, 5 Refills, Maintenance, 02/22/21 16:13:00 EDT, Solution, [facility], Partial fill upon patient request if the prescription is for a schedule II opioid drug., 162.56,... Start Date: 02/22/21 Status: Ordered Multivitamins By Mouth, Daily, 0 Refills, Maintenance, 06/06/19 16:08:50 EDT Start Date: 06/06/19 Status: Ordered Prometrium 200 mg oral capsule See Instructions, vaginally 3 times a day, # 90 tablet, 5 Refills, Maintenance, 02/22/21 16:12:00 EDT, [facility], Partial fill upon patient request if the prescription is for a schedule II opioid drug., 162.56, cm, 02/18/21 8:28:00 EDT, H... Start Date: 02/22/21 Status: Ordered Vivelle-Dot 0.1 mg/24 hours twice weekly transdermal film, extended release 2 patch, Topically, Every other day, qod start day after egg retrieval, # 32 patch, 5 Refills, Maintenance, 02/22/21 16:12:00 EDT, [facility], Partial fill upon patient request if the prescription is for a schedule II opioid drug., 162.56,... Start Date: 02/22/21 Status: Ordered Zithromax 500 mg oral tablet 2 tablet = 1,000 mg, By Mouth, Once, TAKE WHEN STIM MEDS STARTED. THIS IS A ONE TIME DOSE., # 2 tablet, 0 Refills, Soft Stop, 02/22/21 16:13:00 EDT, Tablet, [facility], Partial fill upon patient request if the prescription is for a schedul... Start Date: 02/22/21 Status: Ordered Social History Social History Type Response Smoking Status Never (less than 100 in lifetime) entered on: 06/06/19 Sex
--- OUTSIDE RECORDS SUMMARY | 2023-06-08 08:09 | XMS_ITS | Continuity of Care Document ---
Author Name Unknown Organization [facility] Address [address] [place] [address], [address]t h [address] [place] [address]- Care Team Providers Care Cork Cutter Name Role Phone Ron MAY, Nancy Mensah Primary Care Physician [place] [facility] [place] 09/10/20 - 09/17/20 [facility] Rep[facility]ductive [facility] [address] [facility], 4th [address] [place] [id number] Attending Physician: Lexi Sanchez MD Referring Physician: Nancy Velasquez NP Allergies, Adverse Reactions, Alerts Substance Reaction Severity Status doxycycline 1 Persistent Mild Active 1vomits Medications Apri 0.15 mg-0.03 mg oral tablet 1 tablet, By Mouth, Daily, # 28 tablet, 5 Refills, Maintenance, 07/13/20 10:01:00 EST, Tablet, [facility]/pharmacy #[id number], Partial fill upon patient request [...] oldest [Reference Range]: 1 Height 162.56 cm (09/10/20 4:19 PM) Weight 120.5 kg (09/10/20 4:19 PM) Pulse Rate [55-90 bpm] 75 bpm (09/10/20 4:19 PM) Body Mass Index [18.5-24.99] 45.6 *>HHI* (09/10/20 4:19 PM) Blood Pressure [90-138/55-84 mm Hg] 145/ 71mm Hg *H* (09/10/20 4:19 PM) Blood pressure sites Arm, right (09/10/20 4:19 PM) Weight Obtained Via Standing scale (09/10/20 4:19 PM) Social History Social History Type Response Smoking Status Never (less than 100 in lifetime) entered on: 06/06/19 Sex
--- OUTSIDE RECORDS SUMMARY | 2023-06-08 08:09 | XMS_ITS | Continuity of Care Document ---
Author Name Unknown Organization [facility] Wilfredo [facility] Address [address] [facility], 4t [place] [address]- Care Team Providers Care Plasterer Helper Name Role Phone Ron POSTAL SUPERINTENDENT, Nancy Mensah Primary Care Physician Encounter [facility] Date(s): 07/28/20 - 08/27/20 [facility] [address] [facility], 4th [place] [address]- Allergies, Adverse Reactions, Alerts Substance Reaction Severity [...]
--- OUTSIDE RECORDS SUMMARY | 2023-06-08 08:09 | XMS_ITS | Continuity of Care Document ---
Author Name Unknown Organization [facility] Wilfredo Davis [facility] Address [address] [facility], 4t [place] [address]- Care Team Providers Care Allergist Immunologist Name Role Phone Ron CHILD PSYCHOLOGIST, Nancy Mensah Primary Care Physician [place] [facility] [place] 08/13/20 - 09/12/20 [facility] [place] [facility] [address] [facility], 4th [place] [address]- Allergies, Adverse Reactions, Alerts Substance Reaction Severity [...]
--- OUTSIDE RECORDS SUMMARY | 2023-06-08 08:09 | XMS_ITS | Continuity of Care Document ---
Author Name Unknown Organization [facility] ter Address [address] [place] [address]- Care Team Providers Care Special Education Professor Name Role Phone Ron PAINTER HAND, Nancy Mensah Primary Care Physician Encounter [facility] Date(s): 03/07/21 - 04/08/[address] [address]- Attending Physician: Lexi Sanchez MD Allergies, Adverse [...] tablet, 5 Refills, Maintenance, 02/22/21 16:13:00 EDT, [facility], Partial fill upon patient request [...] kit, 5 Refills, Maintenance, 02/22/21 16:13:00 EDT, [facility] Pharmacy, Partial fill upon patient [...] each, 0 Refills, Maintenance, 02/23/21 14:00:00 EDT, [facility], Partial fill upon patient request [...] 5 Refills, Maintenance, 02/01/21 17:19:00 EDT, Tablet, [facility]/pharmacy #[id number], Partial fill upon patient request if the prescription is for a schedule IIopioid drug., 162.56, cm, 12/07/20 13:23:00 EDT, He... Start Date: 02/01/21 Status: Ordered Ovidrel 250 mcg/0.5 mL subcutaneous solution See Instructions, Inject 2 prefilled syringes when instructed., # 2 each, 5 Refills, Maintenance, 02/22/21 16:13:00 EDT, Solution, [facility], Partial fill upon patient request if the prescription is for a schedule II opioid drug., 162.56,... Start Date: 02/22/21 Status: Ordered Multivitamins By Mouth, Daily, 0 Refills, Maintenance, 06/06/19 16:08:50 EDT Start Date: 06/06/19 Status: Ordered Prometrium 200 mg oral capsule See Instructions, vaginally 3 times a day, # 90 tablet, 5 Refills, Maintenance, 02/22/21 16:12:00 EDT, [facility], Partial fill upon patient request if the prescription is for a schedule II opioid drug., 162.56, cm, 02/18/21 8:28:00 EDT, H... Start Date: 02/22/21 Status: Ordered Vivelle-Dot 0.1 mg/24 hours twice weekly transdermal film, extended release 2 patch, Topically, Every other day, qod start day after egg retrieval, # 32 patch, 5 Refills, Maintenance, 02/22/21 16:12:00 EDT, [facility], Partial fill upon patient request if the prescription is for a schedule II opioid drug., 162.56,... Start Date: 02/22/21 Status: Ordered Zithromax 500 mg oral tablet 2 tablet = 1,000 mg, By Mouth, Once, TAKE WHEN STIM MEDS STARTED. THIS IS A ONE TIME DOSE., # 2 tablet, 0 Refills, Soft Stop, 02/22/21 16:13:00 EDT, Tablet, [facility], Partial fill upon patient request if the prescription is for a schedul... Start Date: 02/22/21 Status: Ordered Social History Social History Type Response Smoking Status Never (less than 100 in lifetime) entered on: 06/06/19 Sex
--- OUTSIDE RECORDS SUMMARY | 2023-06-08 08:09 | XMS_ITS | Continuity of Care Document ---
Author Name Unknown Organization [facility] ter Address [address] [place] [address]- Care Team Providers Care Business And Financial Counsel Name Role Phone Ron MAY, Nancy Mensah Primary Care Physician [place] [facility] [place]08/[place] - 05/08/[address] [address]- [facility] Discharge Disposition: A-D/C Home Attending Physician: Ayesha Darling MD Admitting Physician: Ayesha Darlign MD Referring Physician: Ayesha Darling MD Allergies, [...] 05/01/20 14:18:00 EDT, Route to Pharmacy Electronically, [facility]/pharmacy #[id number], 162.56, cm, 03/30/20 9:45:00 EDT, He... Start Date: 05/01/20 Status: Ordered Social History Social History Type Response Smoking Status Never (less than 100 in lifetime) entered on: 06/06/19 Sex
--- OUTSIDE RECORDS SUMMARY | 2023-06-08 08:09 | XMS_ITS | Continuity of Care Document ---
Author Name Unknown Organization [facility] ter Address [address] [place] [address]- Care Team Providers Care Manager Aerospace Name Role Phone Ron PHOTOGRAPHIC PROCESS SCREEN MAKER, Nancy Mensah Primary Care Physician Encounter [facility] Date(s): 11/10/20 - 12/12/[address] [address]- Attending Physician: La Clark MD Allergies, Adverse Reactions, [...] 14:55:00 EDT Start Date: 01/19/20 Status: Ordered Medrol 16 mg oral tablet 1 tablet = 16 mg, By Mouth, Daily at bedtime, begin when directed, # 4 tablet, 1 Refills, Maintenance, 12/01/20 18:12:00 EDT, [facility]/pharmacy #[id number], Partial fill upon patient request if the prescriptionis for a schedule II opioid drug., 162.56, cm, 02/0... Start Date: 12/01/20 Status: Ordered Ovidrel 250 [...]
--- OUTSIDE RECORDS SUMMARY | 2023-06-08 08:10 | XMS_ITS | Continuity of Care Document ---
Author Name Unknown Organization [facility] Address [address] [facility], 4t h Floor [address] [place] [address]- Care Team Providers Care Rehabilitation Program Manager Name Role Phone Ron SPINNING LATHE OPERATOR HYDRAULIC, Nancy Mensah Primary Care Physician Encounter [facility] Date(s): 12/10/20 - 12/17/20 [facility] [address], 4th [address] [place] [address]- Attending Physician: Not on Staff, Attending MD [...] tablet, 0 Refills, Maintenance, 12/13/20 14:15:00 EDT, [facility]/pharmacy #[id number], Partial fill upon patient request if the prescription is for a schedule II opioid drug., 162.56, cm, 12/07/20 13:23:00 EDT, Height, 117.5, kg,... Start Date: 12/13/20 Stop Date: 12/18/20 Status: Ordered Medrol 16 mg oral tablet 1 tablet = 16 mg, By Mouth, Daily at bedtime, begin when directed, # 4 tablet, 1 Refills, Maintenance, 12/01/20 18:12:00 EDT, [facility]/pharmacy #[id number], Partial fill upon patient [...]
--- OUTSIDE RECORDS SUMMARY | 2023-06-08 08:10 | XMS_ITS | Continuity of Care Document ---
Author Name Unknown Organization [facility] Address [address] [place] [address], 4t [address] [place] [address]- Care Team Providers Care Laboratory Courier Name Role Phone Ron TRANSFER MACHINE OPERATOR, Nancy Mensah Primary Care Physician En[place] [facility] Date(s): 03/17/22 - 04/16/22 [facility] Rep[facility]ductive [facility] [address] [facility], 4th Floor [address] [place] [address] Allergies, Adverse Reactions, Alerts Substance Reaction Severity [...] tablet, 5 Refills, Maintenance, 02/22/21 16:13:00 EDT, [facility], Partial fill upon patient [...] kit, 5 Refills, Maintenance, 02/22/21 16:13:00 EDT, [facility] Pharm[facility], Partial fill upon patient request [...] each, 0 Refills, Maintenance, 02/23/21 14:00:00 EDT, [facility], Partial fill upon patient request [...] 5 Refills, Maintenance, 02/01/21 17:19:00 EDT, Tablet, [facility]/pharmacy #[id number], Partial fill upon patient request if the prescription is for a schedule IIopioid drug., 162.56, cm, 12/07/20 13:23:00 EDT, He... Start Date: 02/01/21 Status: Ordered Ovidrel 250 mcg/0.5 mL subcutaneous solution See Instructions, Inject 2 prefilled syringes when instructed., # 2 each, 5 Refills, Maintenance, 02/22/21 16:13:00 EDT, Solution, [facility], Partial fill upon patient request if the prescription is for a schedule II opioid drug., 162.56,... Start Date: 02/22/21 Status: Ordered Multivitamins By Mouth, Daily, 0 Refills, Maintenance, 06/06/19 16:08:50 EDT Start Date: 06/06/19 Status: Ordered Prometrium 200 mg oral capsule See Instructions, vaginally 3 times a day, # 90 tablet, 5 Refills, Maintenance, 02/22/21 16:12:00 EDT, [facility], Partial fill upon patient request if the prescription is for a schedule II opioid drug., 162.56, cm, 02/18/21 8:28:00 EDT, H... Start Date: 02/22/21 Status: Ordered Vivelle-Dot 0.1 mg/24 hours twice weekly transdermal film, extended release 2 patch, Topically, Every other day, qod start day after egg retrieval, # 32 patch, 5 Refills, Maintenance, 02/22/21 16:12:00 EDT, [facility], Partial fill upon patient request if the prescription is for a schedule II opioid drug., 162.56,... Start Date: 02/22/21 Status: Ordered Zithromax 500 mg oral tablet 2 tablet = 1,000 mg, By Mouth, Once, TAKE WHEN STIM MEDS STARTED. THIS IS A ONE TIME DOSE., # 2 tablet, 0 Refills, Soft Stop, 02/22/21 16:13:00 EDT, Tablet, [facility], Partial fill upon patient request if the prescription is for a schedul... Start Date: 02/22/21 Status: Ordered Problem List Condition Effective Dates Status Health Status Inform ant Severe obesity(Confirmed) Active Social History Social History Type Response Smoking Status Never (less than 100 in lifetime) entered on: 06/06/19 Sex Care Team Personnel Name: Nancy Velasquez NP Address: [address] [place] [address]
--- OUTSIDE RECORDS SUMMARY | 2023-06-08 08:10 | XMS_ITS | Continuity of Care Document ---
Author Name Unknown Organization [facility] Address [address] [facility], 4t [address] [place] [address]- Care Team Providers Care Gameplay Engineer Name Role Phone Ron BOTTOM PRECIPITATOR OPERATOR, Nancy Mensah Primary Care Physician [place] [facility] [place] 07/13/20 - 08/12/20 [facility] Reproductive [facility] [address] [facility], 4th [address] [place], [place] [address] Attending Physician: Odilia Hilario Admitting Physician: Admtr, Odilia Referring Physician: Admtr, Ar8 Allergies, Adverse Reactions, Alerts Substance Reaction Severity Status doxycycline 1 Persistent Mild Active 1vomits Medications Apri 0.15 mg-0.03 mg oral tablet 1 tablet, By Mouth, Daily, # 28 tablet, 5 Refills, Maintenance, 07/13/20 10:01:00 EST, Tablet, [facility]/pharmacy #[id number], Partial fill upon patient [...]
--- OUTSIDE RECORDS SUMMARY | 2023-06-08 08:10 | XMS_ITS | Continuity of Care Document ---
Author Name Unknown Organization [facility] e Medicine Address Unknown Care Team Providers Care Lead Net Software Developer Name Role Phone Ron GLOST KILN OPERATOR, Nancy Mensah Primary Care Physician En[place] [facility] Date(s): 02/24/21 - 03/26/21 [facility] Rep[facility] Allergies, Adverse Reactions, Alerts Substance [...] 5 Refills, Maintenance, 02/22/21 16:13:00 EDT, [facility] Pharm[facility], Partial fill upon patient [...] kit, 5 Refills, Maintenance, 02/22/21 16:13:00 EDT, [facility] Pharm[facility], Partial fill upon patient [...] each, 0 Refills, Maintenance, 02/23/21 14:00:00 EDT, [facility], Partial fill upon patient request if the [...]
--- OUTSIDE RECORDS SUMMARY | 2023-06-08 08:10 | XMS_ITS | Continuity of Care Document ---
Author Name Unknown Organization [facility] e Medicine Address [address] [place] [address], 4t [address] [place] [address]- Care Team Providers Care Floorperson Name Role Phone Ron DIRECTOR OF BUSINESS APPLICATIONS, Nancy Mensah Primary Care Physician En[place] [facility] [place] Date(s): 04/21/20 - 05/21/20 [facility] Reproductive Medicine [address] [facility], 4th Floor [address] [place] [address]- [facility] Allergies, Adverse Reactions, Alerts Substance [...] 05/01/20 14:18:00 EDT, Route to Pharmacy Electronically, [facility]/pharmacy #[id number], 162.56, cm, 03/30/20 9:45:00 EDT, He... Start Date: 05/01/20 Status: Ordered Social History Social History Type Response Smoking Status Never (less than 100 in lifetime) entered on: 06/06/19 Sex
--- OUTSIDE RECORDS SUMMARY | 2023-06-08 08:10 | XMS_ITS | Continuity of Care Document ---
Author Name Unknown Organization [facility] e Medicine Address [address] [place] [address], 4t [address] Floor [address] [place] [address]- Care Team Providers Care Can Dryer Name Role Phone [place] COOKER LOADER, Nancy Mensah Primary Care Physician En[place] [facility] [place](s[place] 03/10/20 - 04/09/20 [facility] Reproductive Medicine [address] [place] [address], 4th Floor [address] [place] [address] [facility] Allergies, Adverse Reactions, Alerts Substance [...]
--- OUTSIDE RECORDS SUMMARY | 2023-06-08 08:10 | XMS_ITS | Continuity of Care Document ---
Author Name Unknown Organization [facility] e [facility] Address [address] [place] [address], 4t [address] Floor [address] [place] [address]- Care Team Providers Care Junior Art Director Name Role Phone [place] ANIMATED CARTOONS PAINTER, Nancy Mensah Primary Care Physician [place] [facility] [place](s): 02/24/20 - 03/25/20 [facility] Reproductive Medicine [address] [facility], 4th Floor [address] [place] [address] [place] Allergies, Adverse Reactions, Alerts Substance Reaction Severity [...]
--- OUTSIDE RECORDS SUMMARY | 2023-06-08 08:10 | XMS_ITS | Continuity of Care Document ---
Author Name Unknown Organization [facility] Address [address] [place] [address], [address] [place] [address]- Care Team Providers Care Wet Mixer Name Role Phone [place] FINANCIAL SERVICES AGENT, Nancy Mensah Primary Care Physician Encounter [facility] [place] Date(s): 01/10/21 - 02/09/21 [facility] [address] [facility], [address] [place] [address]- Allergies, Adverse Reactions, Alerts Substance Reaction Severity Status doxycycline 1 Persistent Mild Active 1vomits Medications 1cc syringe with 27 gauge 1/2inch needle 1cc syringe with 27 gauge 1/2inch needle, See Instructions, # 10 each, Refills 0, Tot. Refills 0, Maintenance, Used to give medication., 02/03/21 14:45:00 EDT, Compound, 162.56, cm, 12/07/20 13:23:00EDT, Height, 117.5, kg, 06/28/20 14:02:00 EST, Dry... Start Date: 02/03/21 Status: Ordered 3cc 22 gauge 1 1/2in needles 3cc 22 gauge 1 1/2in needles, See Instructions, # 10 each, Refills 5, Tot. Refills 5, Maintenance, for mixing medication, 02/03/21 14:45:00 EDT, Compound, 162.56, cm, 12/07/20 13:23:00 EDT, Height, 117.5, kg, 06/28/20 14:02:00 EST, Dry Weight Start Date: 02/03/21 Status: Ordered CoQ10 See Instructions, By Mouth [...] injections, # 14 tablet, 5 Refills, Maintenance, 02/03/21 14:43:00 EDT, [facility], Partial fill upon patient request if the prescription is for a schedule II opio... Start Date: 02/03/21 Status: Ordered Fish Oil By Mouth, 0 Refills, Maintenance, 09/10/20 16:21:00 EST, Partial fill upon patient request if the prescription is for a schedule II opioid drug. Start Date: 09/10/20 Status: Ordered Gonal-F 1050 units subcutaneous injection = 300 International_Units, Subcutaneous Injection, 2 times a day, # 6 kit, 5 Refills, Maintenance, 02/03/21 14:43:00 EDT, [facility], Partial fill upon patient request if the prescriptionis for a schedule II opioid drug., 300 Internationa... Start Date: 02/03/21 Status: Ordered Labetalol = 150 mg, By Mouth, 2 times a day, 0 Refills, Maintenance, 01/19/20 14:55:00 EDT Start Date: 01/19/20 Status: Ordered microdose lupron 40mcg/0.1ml microdose lupron 40mcg/0.1ml, See Instructions, # 5 mL, Refills 5, Tot. Refills 5, Maintenance, 10 units subcutaneous injection twice a day, 02/03/21 14:43:00 EDT, Compound, 162.56, cm, 12/07/20 13:23:00 EDT, Height, 117.5, kg, 06/28/20 14:02:00 EST,... Start Date: 02/03/21 Status: Ordered Omnitrope 5.8 mg subcutaneous injection See Instructions, Mix with all of provided diluent and inject 0.4ml SC Daily with stim meds, # 3 each, 0 Refills, Maintenance, 02/03/21 14:45:00 EDT, [facility], Partial fill upon patient request if the prescription is for a schedule I... Start Date: 02/03/21 Status: Ordered orange capped insulin syringes orange capped insulin syringes, See Instructions, # 30 each, Refills 5, Tot. Refills 5, Maintenance, to use to administer lupron, 02/03/21 14:43:00 EDT, Compound, 162.56, cm, 12/07/20 13:23:00 EDT, Height, 117.5, kg, 06/28/20 14:02:00 EST, Dry Weight Start Date: 02/03/21 Status: Ordered Ortho Micronor 0.35 mg oral tablet 1 tablet = 0.35 mg, By Mouth, Daily, # 28 tablet, 5 Refills, Maintenance, 02/01/21 17:19:00 EDT, Tablet, [facility]/pharmacy #[id number], Partial fill upon patient request if the prescription is for a schedule IIopioid drug., 162.56, cm, 12/07/20 13:23:00 EDT, He... Start Date: 02/01/21 Status: Ordered Ovidrel 250 mcg/0.5 mL subcutaneous solution See Instructions, Inject 2 prefilled syringes when instructed., # 2 each, 5 Refills, Maintenance, 02/03/21 14:44:00 EDT, Solution, [facility], Partial fill upon patient request if the prescription is for a schedule II opioid drug., 162.56,... Start Date: 02/03/21 Status: Ordered Multivitamins By Mouth, Daily, 0 Refills, Maintenance, 06/06/19 16:08:50 EDT Start Date: 06/06/19 Status: Ordered Prometrium 200 mg oral capsule See Instructions, vaginally 3 times a day, # 90 tablet, 5 Refills, Maintenance, 02/03/21 14:43:00 EDT, [facility], Partial fill upon patient request if the prescription is for a schedule II opioid drug., 162.56, cm, 12/07/20 13:23:00 EDT,... Start Date: 02/03/21 Status: Ordered Vivelle-Dot 0.1 mg/24 hours twice weekly transdermal film, extended release 2 patch, Topically, Every other day, qod start day after egg retrieval, # 32 patch, 5 Refills, Maintenance, 02/03/21 14:44:00 EDT, [facility], Partial fill upon patient request if the prescription is for a schedule II opioid drug., 162.56,... Start Date: 02/03/21 Status: Ordered Social History Social History Type Response Smoking Status Never (less than 100 in lifetime) entered on: 06/06/19 Sex
--- OUTSIDE RECORDS SUMMARY | 2023-06-08 08:10 | XMS_ITS | Continuity of Care Document ---
Author Name Unknown Organization [facility] Address [address] [place] [address], 4t [address] Floor [address] [place] [address]- Care Team Providers Care Pet Care Attendant Name Role Phone Ron POPCORN MACHINE OPERATOR, Nancy Mensah Primary Care Physician [place] [facility] [place] 10/11/20 - 11/10/20 [facility] Reproductive Medicine [address] [facility], 4th Floor [address] [place] [address]- Allergies, Adverse Reactions, Alerts Substance Reaction Severity Status doxycycline 1 Persistent Mild Active 1vomits Medications Apri 0.15 mg-0.03 mg oral tablet 1 tablet, By Mouth, Daily, # 28 tablet, 5 Refills, Maintenance, 09/28/20 17:13:00 EST, Tablet, [facility]/pharmacy #[id number], Partial fill upon patient request if [...] Replace Required Details, Route to Pharmacy Electronically, [facility]/pharmacy #[id number], Partial... Start Date: 11/10/20 Status: Ordered Multivitamins [...] Replace Required Details, Route to Pharmacy Electronically, [facility]/pharmacy... Start Date: 11/10/20 Status: Ordered Vivelle-Dot 0.1 [...]
--- OUTSIDE RECORDS SUMMARY | 2023-06-08 08:10 | XMS_ITS | Continuity of Care Document ---
Author Name Unknown Organization [facility] Address [address] [place] [address], 4t h Floor [address] [place] [address]- Care Team Providers Care Peanut Separator Name Role Phone Ron CLINICAL DATA RESEARCH, Nancy Mensah Primary Care Physician Encounter [facility] Date(s): 04/26/20 - 05/26/20 [facility] Reproductive Medicine [address] [facility], 4th Floor [address] [place] [address]- [facility] Allergies, Adverse Reactions, Alerts Substance [...] 05/01/20 14:18:00 EDT, Route to Pharmacy Electronically, [facility]/pharmacy #[id number], 162.56, cm, 03/30/20 9:45:00 EDT, He... Start Date: 05/01/20 Status: Ordered Social History Social History Type Response Smoking Status Never (less than 100 in lifetime) entered on: 06/06/19 Sex
--- OUTSIDE RECORDS SUMMARY | 2023-06-08 08:10 | XMS_ITS | Continuity of Care Document ---
Author Name Unknown Organization [facility] Address [address] [place] [address], 4t h Floor [address] [place] [address]- Care Team Providers Care 3D Designer Name Role Phone [place] BUILDING MAINTENANCE SUPERVISOR, Nancy Mensah Primary Care Physician [place] [facility] [place] 02/23/20 - 03/24/20 [facility] Reproductive Medicine [address] [facility], 4th Floor [address] [place] [address]- [facility] Allergies, Adverse Reactions, Alerts Substance [...]
--- OUTSIDE RECORDS SUMMARY | 2023-06-08 08:10 | XMS_ITS | Continuity of Care Document ---
Author Name Unknown Organization [facility] Address [address] [facility], 4t h Floor [address] [place] [address]- Care Team Providers Care Senior Web Engineer Name Role Phone Ron TAP DANCER, Nancy Mensah Primary Care Physician En[place] [facility] [place] Date(s): 12/13/20 - 12/20/20 [facility] Reproductive Medicine [address], 4th Floor [address] [place] [address]- Attending Physician: Not on Staff, Attending MD [...] tablet, 0 Refills, Maintenance, 12/13/20 14:15:00 EDT, [facility]/pharmacy #[id number], Partial fill upon patient request if the prescription is for a schedule II opioid drug., 162.56, cm, 12/07/20 13:23:00 EDT, Height, 117.5, kg,... Start Date: 12/13/20 Stop Date: 12/18/20 Status: Ordered Medrol 16 mg oral tablet 1 tablet = 16 mg, By Mouth, Daily at bedtime, begin when directed, # 4 tablet, 1 Refills, Maintenance, 12/01/20 18:12:00 EDT, [facility]/pharmacy #[id number], Partial fill upon patient [...]
--- OUTSIDE RECORDS SUMMARY | 2023-06-08 08:10 | XMS_ITS | Continuity of Care Document ---
Author Name Unknown Organization [facility] Address [address] [facility], 4t [place] [address]- Care Team Providers Care Senior Network Engineer Name Role Phone Ron DIRECTOR OF PREMIUM SEAT SALES, Nancy Mensah Primary Care Physician Encounter [facility] Date(s): 07/27/20 - 08/26/20 [facility] [place] [facility] [address] [facility], 4th [place] [address]- Allergies, Adverse Reactions, Alerts Substance Reaction Severity [...]
--- OUTSIDE RECORDS SUMMARY | 2023-06-08 08:10 | XMS_ITS | Continuity of Care Document ---
Author Name Unknown Organization [facility] Address [address] [place] [address], 4t h Floor [address] [place] [address]- Care Team Providers Care Police Worker Name Role Phone Ron MAY, Nancy Mensah Primary Care Physician [place] [facility] [place]): [place]18[place]20 - 12/25/20 [facility] Reproductive Medicine [address] [facility], 4th Floor [address] [place] [address] Attending Physician: Lexi Sanchez MD Referring [...] tablet, 0 Refills, Maintenance, 12/13/20 14:15:00 EDT, [facility]/pharmacy #[id number], Partial fill upon patient request if the prescription is for a schedule II opioid drug., 162.56, cm, 12/07/20 13:23:00 EDT, Height, 117.5, kg,... Start Date: 12/13/20 Stop Date: 12/18/20 Status: Ordered Medrol 16 mg oral tablet 1 tablet = 16 mg, By Mouth, Daily at bedtime, begin when directed, # 4 tablet, 1 Refills, Maintenance, 12/01/20 18:12:00 EDT, [facility]/pharmacy #[id number], Partial fill upon patient [...]
--- OUTSIDE RECORDS SUMMARY | 2023-06-08 08:10 | XMS_ITS | Continuity of Care Document ---
Author Name Unknown Organization [facility] Medicine Address [address] [place] [address], 4t h Floor [address] [place] [address]- Care Team Providers Care Apartment Hotel Manager Name Role Phone Ron CHEMICAL PLANT TECHNICAL DIRECTOR, Nancy Mensah Primary Care Physician En[place] [facility] [place] Date(s): 09/02/20 - 10/02/20 [facility] Rep[facility]ductive Medicine [address] [facility], 4th Floor [address] [place] [address]- Allergies, Adverse Reactions, Alerts Substance Reaction Severity Status doxycycline 1 Persistent Mild Active 1vomits Medications Apri 0.15 mg-0.03 mg oral tablet 1 tablet, By Mouth, Daily, # 28 tablet, 5 Refills, Maintenance, 09/28/20 17:13:00 EST, Tablet, [facility]/pharmacy #[id number], Partial fill upon patient [...]
--- OUTSIDE RECORDS SUMMARY | 2023-06-08 08:10 | XMS_ITS | Continuity of Care Document ---
Author Name Unknown Organization [facility] Address [address] [facility], 4t h Floor [address] [place] [address]- Care Team Providers Care Kennel Supervisor Name Role Phone Ron STATE ATTORNEY, Nancy Mensah Primary Care Physician Encounter [facility] Date(s): 02/19/20 - 03/20/20 [facility] Reproductive Medicine [address] [facility], 4th Floor [address] [place] [address] [facility] Allergies, Adverse Reactions, Alerts Substance Reaction [...]
--- OUTSIDE RECORDS SUMMARY | 2023-06-08 08:10 | XMS_ITS | Continuity of Care Document ---
Author Name Unknown Organization [facility] Address Unknown Care Team Providers Care Drier Tender Naphthalene Name Role Phone Ron SURVEYOR INSTRUMENT ASSISTANT, Nancy Mensah Primary Care Physician Encounter [facility] [place] Date(s): 03/22/21 - 04/21/21 [facility] Reproductive Medicine Allergies, Adverse Reactions, Alerts Substance [...] tablet, 5 Refills, Maintenance, 02/22/21 16:13:00 EDT, [facility], Partial fill upon patient request [...] kit, 5 Refills, Maintenance, 02/22/21 16:13:00 EDT, [facility], Partial fill upon patient request [...] each, 0 Refills, Maintenance, 02/23/21 14:00:00 EDT, [facility], Partial fill upon patient request if the [...] Refills, Maintenance, 02/01/21 17:19:00 EDT, Tablet, [facility]/pharmacy #[id number], Partial fill upon patient request if the prescription is for a schedule IIopioid drug., 162.56, cm, 12/07/20 13:23:00 EDT, He... Start Date: 02/01/21 Status: Ordered Ovidrel 250 mcg/0.5 mL subcutaneous solution See Instructions, Inject 2 prefilled syringes when instructed., # 2 each, 5 Refills, Maintenance, 02/22/21 16:13:00 EDT, Solution, [facility], Partial fill upon patient request if the prescription is for a schedule II opioid drug., 162.56,... Start Date: 02/22/21 Status: Ordered Multivitamins By Mouth, Daily, 0 Refills, Maintenance, 06/06/19 16:08:50 EDT Start Date: 06/06/19 Status: Ordered Prometrium 200 mg oral capsule See Instructions, vaginally 3 times a day, # 90 tablet, 5 Refills, Maintenance, 02/22/21 16:12:00 EDT, [facility], Partial fill upon patient request if the prescription is for a schedule II opioid drug., 162.56, cm, 02/18/21 8:28:00 EDT, H... Start Date: 02/22/21 Status: Ordered Vivelle-Dot 0.1 mg/24 hours twice weekly transdermal film, extended release 2 patch, Topically, Every other day, qod start day after egg retrieval, # 32 patch, 5 Refills, Maintenance, 02/22/21 16:12:00 EDT, [facility], Partial fill upon patient request if the prescription is for a schedule II opioid drug., 162.56,... Start Date: 02/22/21 Status: Ordered Zithromax 500 mg oral tablet 2 tablet = 1,000 mg, By Mouth, Once, TAKE WHEN STIM MEDS STARTED. THIS IS A ONE TIME DOSE., # 2 tablet, 0 Refills, Soft Stop, 02/22/21 16:13:00 EDT, Tablet, [facility], Partial fill upon patient request if the prescription is for a schedul... Start Date: 02/22/21 Status: Ordered Social History Social History Type Response Smoking Status Never (less than 100 in lifetime) entered on: 06/06/19 Sex
--- OUTSIDE RECORDS SUMMARY | 2023-06-08 08:10 | XMS_ITS | Continuity of Care Document ---
Author Name Unknown Organization [facility] Address [address] [place] [address], 4t [address] [place] [address]- Care Team Providers Care Claim Inspector Name Role Phone [place] AQUATIC BIOLOGIST, Nancy Mensah Primary Care Physician En[place] [facility] [place] Date(s): 12/19/19 - 12/26/19 [facility] Reproductive Medicine [address] [facility], 4th [address] [place] [address]- [facility] Attending Physician: Lexi Sanchez MD Allergies, [...] EST, Height Start Date: 10/09/19 Status: Ordered labetalol 100 mg oral tablet 1 tablet = 100 mg, By Mouth, 2 times a day, # 60 tablet, 0 Refills, Maintenance, 09/05/19 12:27:00 EST, Tablet Start Date: 09/05/19 Status: Ordered microdose lupron 40mcg/0.1ml microdose lupron [...] EST, Height Start Date: 10/13/19 Status: Ordered Vital Signs Most recent to oldest [Reference Range]: 1 Height 162.56 cm (12/18/19 1:38 PM) Social History Social History Type Response Smoking Status Never (less than 100 in lifetime) entered on: 06/06/19 Sex
--- OUTSIDE RECORDS SUMMARY | 2023-06-08 08:11 | XMS_ITS | Continuity of Care Document ---
Author Name Unknown Organization [facility] Address [address] [facility], 4t [place] [address]- Care Team Providers Care Middleware Architect Name Role Phone Ron TELEPRINTER INSTALLER, Nancy Mensah Primary Care Physician Encounter [facility] [place] Date(s): 06/14/20 - 07/14/20 [facility] [address] [facility], 4th [place] [address]- Allergies, Adverse Reactions, Alerts Substance Reaction Severity [...]
--- OUTSIDE RECORDS SUMMARY | 2023-06-08 08:11 | XMS_ITS | Continuity of Care Document ---
Author Name Unknown Organization [facility] e Medicine Address [address] [facility], 4t h Floor [address] [place] [address]- Care Team Providers Care Tool Clerk Name Role Phone Ron ASSISTANT CHIEF ENGINEER, Nnacy Mensah Primary Care Physician Encounter [facility] Date(s): 06/14/20 - 07/14/20 [facility] Reproductive Medicine [address] [facility], 4th Floor [address] [place] [id number] Allergies, Adverse Reactions, Alerts [...]
--- OUTSIDE RECORDS SUMMARY | 2023-06-08 08:11 | XMS_ITS | Continuity of Care Document ---
Author Name Unknown Organization [facility] e Medicine Address [address] [facility], 4t h Floor [address] [place] [address]- Care Team Providers Care Test Administrator Name Role Phone Ron SUSHI CHEF, Nancy Mensah Primary Care Physician En[place] [facility] [place] Date(s): 09/20/20 - 10/20/20 [facility] Reproductive Medicine [address] [facility], 4th Floor [address] [place] [id number] Allergies, Adverse Reactions, Alerts Substance Reaction Severity Status doxycycline 1 Persistent Mild Active 1vomits Medications Apri 0.15 mg-0.03 mg oral tablet 1 tablet, By Mouth, Daily, # 28 tablet, 5 Refills, Maintenance, 09/28/20 17:13:00 EST, Tablet, [id number], Partial fill upon [...]
--- OUTSIDE RECORDS SUMMARY | 2023-06-08 08:11 | XMS_ITS | Continuity of Care Document ---
Author Name Unknown Organization [facility] e Medicine Address [address] [facility], 4t [address] [place] [address]- Care Team Providers Care Gas Golf Cart Repairer Name Role Phone Ron UNDERTAKER HELPER, Nancy Mensah Primary Care Physician En[place] [facility] [place] Date(s): 06/18/20 - 07/29/20 [facility] Reproductive Medicine [address], 4th [address] [place] [id number] Attending Physician: Not on Staff, Attending MD [...]
--- OUTSIDE RECORDS SUMMARY | 2023-06-08 08:11 | XMS_ITS | Continuity of Care Document ---
Author Name Unknown Organization [facility] e Medicine Address Unknown Care Team Providers Care Multifold Operator Name Role Phone Ron SAUSAGE GRINDER, Nancy Mensah Primary Care Physician En[place] [facility] [place] Date(s): 12/29/21 - 01/28/22 [facility] Reproductive Medicine Attending Physician: Admtr, Odilia Admitting Physician: Admtr, [id number] Referring Physician: Admtr, [...] tablet, 5 Refills, Maintenance, 02/22/21 16:13:00 EDT, [facility], Partial fill upon patient request [...] kit, 5 Refills, Maintenance, 02/22/21 16:13:00 EDT, [facility], Partial fill upon patient request [...] each, 0 Refills, Maintenance, 02/23/21 14:00:00 EDT, [facility], Partial fill upon patient [...] 5 Refills, Maintenance, 02/01/21 17:19:00 EDT, Tablet, [facility]/pharmacy #[id number], Partial fill upon patient request if the prescription is for a schedule IIopioid drug., 162.56, cm, 12/07/20 13:23:00 EDT, He... Start Date: 02/01/21 Status: Ordered Ovidrel 250 mcg/0.5 mL subcutaneous solution See Instructions, Inject 2 prefilled syringes when instructed., # 2 each, 5 Refills, Maintenance, 02/22/21 16:13:00 EDT, Solution, [facility], Partial fill upon patient request if the prescription is for a schedule II opioid drug., 162.56,... Start Date: 02/22/21 Status: Ordered Multivitamins By Mouth, Daily, 0 Refills, Maintenance, 06/06/19 16:08:50 EDT Start Date: 06/06/19 Status: Ordered Prometrium 200 mg oral capsule See Instructions, vaginally 3 times a day, # 90 tablet, 5 Refills, Maintenance, 02/22/21 16:12:00 EDT, [facility], Partial fill upon patient request if the prescription is for a schedule II opioid drug., 162.56, cm, 02/18/21 8:28:00 EDT, H... Start Date: 02/22/21 Status: Ordered Vivelle-Dot 0.1 mg/24 hours twice weekly transdermal film, extended release 2 patch, Topically, Every other day, qod start day after egg retrieval, # 32 patch, 5 Refills, Maintenance, 02/22/21 16:12:00 EDT, [facility], Partial fill upon patient request if the prescription is for a schedule II opioid drug., 162.56,... Start Date: 02/22/21 Status: Ordered Zithromax 500 mg oral tablet 2 tablet = 1,000 mg, By Mouth, Once, TAKE WHEN STIM MEDS STARTED. THIS IS A ONE TIME DOSE., # 2 tablet, 0 Refills, Soft Stop, 02/22/21 16:13:00 EDT, Tablet, [facility], Partial fill upon patient request if the prescription is for a schedul... Start Date: 02/22/21 Status: Ordered Problem List Condition Effective Dates Status Health Status Inform ant Severe obesity(Confirmed) Active Social History Social History Type Response Smoking Status Never (less than 100 in lifetime) entered on: 06/06/19 Sex
--- OUTSIDE RECORDS SUMMARY | 2023-06-08 08:11 | XMS_ITS | Continuity of Care Document ---
Author Name Unknown Organization [facility] e Medicine Address [address] [place] [address], 4t h Floor [address] [place] [address]- Care Team Providers Care Aluminum Boat Inspector Name Role Phone Ron LEASE OPERATOR, Nancy Mensah Primary Care Physician En[place] [facility] [place] Date(s): 08/24/20 - 09/23/20 [facility] Reproductive Medicine [address] [facility], 4th Floor [address] [place] [id number] Allergies, Adverse Reactions, Alerts Substance Reaction Severity [...]
--- OUTSIDE RECORDS SUMMARY | 2023-06-08 08:11 | XMS_ITS | Continuity of Care Document ---
Author Name Unknown Organization [facility] Wilfredo P[employer] Address [address] [place] [address], [address] [place] [address]- Care Team Providers Care Host/Hostess Restaurant Name Role Phone [place] SHOE STICKS REPAIRER, Nancy Mensah Primary Care Physician Encounter [facility] [place] Date(s): 02/01/21 - 03/03/21 [facility] [employer] [facility] [address] [facility], [address] [place] [address]- Allergies, Adverse Reactions, Alerts Substance Reaction Severity [...] tablet, 5 Refills, Maintenance, 02/22/21 16:13:00 EDT, [facility], Partial fill upon [...] kit, 5 Refills, Maintenance, 02/22/21 16:13:00 EDT, [facility], Partial fill upon [...] each, 0 Refills, Maintenance, 02/23/21 14:00:00 EDT, [facility], Partial fill upon patient request [...] Refills, Maintenance, 02/01/21 17:19:00 EDT, Tablet, [facility]/pharmacy #[id number], Partial fill upon patient request if the prescription is for a schedule IIopioid drug., 162.56, cm, 12/07/20 13:23:00 EDT, He... Start Date: 02/01/21 Status: Ordered Ovidrel 250 mcg/0.5 mL subcutaneous solution See Instructions, Inject 2 prefilled syringes when instructed., # 2 each, 5 Refills, Maintenance, 02/22/21 16:13:00 EDT, Solution, [facility], Partial fill upon patient request if the prescription is for a schedule II opioid drug., 162.56,... Start Date: 02/22/21 Status: Ordered Multivitamins By Mouth, Daily, 0 Refills, Maintenance, 06/06/19 16:08:50 EDT Start Date: 06/06/19 Status: Ordered Prometrium 200 mg oral capsule See Instructions, vaginally 3 times a day, # 90 tablet, 5 Refills, Maintenance, 02/22/21 16:12:00 EDT, [facility], Partial fill upon patient request if the prescription is for a schedule II opioid drug., 162.56, cm, 02/18/21 8:28:00 EDT, H... Start Date: 02/22/21 Status: Ordered Vivelle-Dot 0.1 mg/24 hours twice weekly transdermal film, extended release 2 patch, Topically, Every other day, qod start day after egg retrieval, # 32 patch, 5 Refills, Maintenance, 02/22/21 16:12:00 EDT, [facility], Partial fill upon patient request if the prescription is for a schedule II opioid drug., 162.56,... Start Date: 02/22/21 Status: Ordered Zithromax 500 mg oral tablet 2 tablet = 1,000 mg, By Mouth, Once, TAKE WHEN STIM MEDS STARTED. THIS IS A ONE TIME DOSE., # 2 tablet, 0 Refills, Soft Stop, 02/22/21 16:13:00 EDT, Tablet, [facility], Partial fill upon patient request if the prescription is for a schedul... Start Date: 02/22/21 Status: Ordered Social History Social History Type Response Smoking Status Never (less than 100 in lifetime) entered on: 06/06/19 Sex
--- OUTSIDE RECORDS SUMMARY | 2023-06-08 08:11 | XMS_ITS | Continuity of Care Document ---
Author Name Unknown Organization [facility] Address [address] [place] [address], [address]t [address] [place] [address]- Care Team Providers Care Billing Representative Name Role Phone Ron BUSINESS SERVICES DIRECTOR, Nanyc Mensah Primary Care Physician Encounter [facility] [place] Date(s): 10/18/20 - 11/17/20 [facility] [address] [facility], 4th Floor [address] [place] [address]- Allergies, Adverse Reactions, Alerts Substance Reaction Severity Status doxycycline 1 Persistent Mild Active 1vomits Medications Apri 0.15 mg-0.03 mg oral tablet 1 tablet, By Mouth, Daily, # 28 tablet, 5 Refills, Maintenance, 09/28/20 17:13:00 EST, Tablet, [facility]/pharmacy #[id number], Partial fill upon patient [...] Replace Required Details, Route to Pharmacy Electronically, [facility]/pharmacy #[id number], Partial... Start Date: 11/10/20 Status: Ordered Multivitamins [...] Route to Pharmacy Electronically, [facility]... Start Date: 11/10/20 Status: Ordered Vivelle-Dot 0.1 [...]
--- OUTSIDE RECORDS SUMMARY | 2023-06-08 08:11 | XMS_ITS | Continuity of Care Document ---
Author Name Unknown Organization [facility] Address [address] [place] [address], [address]t [address] [place] [address]- Care Team Providers Care Pan Devulcanizer Name Role Phone Ron MAY, Nancy Mensah Primary Care Physician [place] [facility] [place] 11[place]13/20 [facility] [address] [facility], 4th Floor [address] [place] [address]- Attending Physician: La Clark MD Referring Physician: Nancy Velasquez NP [...] to Pharmacy Electronically, [facility]/pharmacy #[id number], Partial... Start Date: 11/10/20 Status: Ordered Multivitamins [...]
--- OUTSIDE RECORDS SUMMARY | 2023-06-08 08:11 | XMS_ITS | Continuity of Care Document ---
Author Name Unknown Organization [facility] Address [address] [place] [address], 4t [address] [place] [address]- Care Team Providers Care Lining Repairer Name Role Phone Ron SHIPFITTER, Nancy Mensah Primary Care Physician [id number] Date(s): 01/27/20 - 02/03/20 [facility] [address] [facility], 4th Floor [address] [place] [address]- [facility] Attending Physician: Lexi Sanchez MD Referring [...] 9:22:00 EDT, Route to Pharmacy Electronically, [facility]/pharmacy #[id number] Tablet, Partial fill upon patient request,... Start Date: 01/31/20 Status: Ordered Apri 0.15 mg-0.03 mg oral tablet 1 tablet, By Mouth, Daily, # 30 tablet, 5 Refills, Maintenance, 10/03/19 15:38:00 EST, Tablet, [facility]/pharmacy #[id number], 1 tablet By Mouth Daily, 162.56, [...]
--- OUTSIDE RECORDS SUMMARY | 2023-06-08 08:11 | XMS_ITS | Continuity of Care Document ---
Author Name Unknown Organization [facility] ter Address [address] [place] [address]- Care Team Providers Care Major Appliance Assembly Supervisor Name Role Phone Ron TUNNEL MINER, Nancy Mensah Primary Care Physician Encounter [facility] [place] Date(s): 12/25/20 - 12/25/[address] [address]- Discharge Disposition: A-D/C Home Attending Physician: La Clark MD Admitting Physician: La Clark MD Referring Physician: La Clark MD Allergies, Adverse Reactions, [...] tablet, 0 Refills, Maintenance, 12/13/20 14:15:00 EDT, [facility]/pharmacy #[id number], Partial fill upon patient request if the prescription is for a schedule II opioid drug., 162.56, cm, 12/07/20 13:23:00 EDT, Height, 117.5, kg,... Start Date: 12/13/20 Stop Date: 12/18/20 Status: Ordered Medrol 16 mg oral tablet 1 tablet = 16 mg, By Mouth, Daily at bedtime, begin when directed, # 4 tablet, 1 Refills, Maintenance, 12/01/20 18:12:00 EDT, [facility]/pharmacy #[id number], Partial fill upon patient request [...]
--- OUTSIDE RECORDS SUMMARY | 2023-06-08 08:11 | XMS_ITS | Continuity of Care Document ---
Author Name Unknown Organization [facility] Address [address] [place] [address], 4t [address] [place] [address]- Care Team Providers Care Water Main Inspector Name Role Phone Ron OPHTHALMOLOGY SURGICAL TECHNICIAN, Nancy Mensah Primary Care Physician Encounter [facility] Date(s): 02/18/21 - 03/20/21 [facility] [address] [facility], 4th [address] [place] [id number] Allergies, Adverse Reactions, Alerts Substance [...] tablet, 5 Refills, Maintenance, 02/22/21 16:13:00 EDT, [facility], Partial fill upon [...] kit, 5 Refills, Maintenance, 02/22/21 16:13:00 EDT, [facility], Partial fill upon patient request if [...] each, 0 Refills, Maintenance, 02/23/21 14:00:00 EDT, [facility], Partial fill upon patient request [...] 5 Refills, Maintenance, 02/01/21 17:19:00 EDT, Tablet, [facility]/pharmacy #[id number], Partial fill upon patient request if the prescription is for a schedule IIopioid drug., 162.56, cm, 12/07/20 13:23:00 EDT, He... Start Date: 02/01/21 Status: Ordered Ovidrel 250 mcg/0.5 mL subcutaneous solution See Instructions, Inject 2 prefilled syringes when instructed., # 2 each, 5 Refills, Maintenance, 02/22/21 16:13:00 EDT, Solution, [facility], Partial fill upon patient request if the prescription is for a schedule II opioid drug., 162.56,... Start Date: 02/22/21 Status: Ordered Multivitamins By Mouth, Daily, 0 Refills, Maintenance, 06/06/19 16:08:50 EDT Start Date: 06/06/19 Status: Ordered Prometrium 200 mg oral capsule See Instructions, vaginally 3 times a day, # 90 tablet, 5 Refills, Maintenance, 02/22/21 16:12:00 EDT, [facility], Partial fill upon patient request if the prescription is for a schedule II opioid drug., 162.56, cm, 02/18/21 8:28:00 EDT, H... Start Date: 02/22/21 Status: Ordered Vivelle-Dot 0.1 mg/24 hours twice weekly transdermal film, extended release 2 patch, Topically, Every other day, qod start day after egg retrieval, # 32 patch, 5 Refills, Maintenance, 02/22/21 16:12:00 EDT, [facility], Partial fill upon patient request if the prescription is for a schedule II opioid drug., 162.56,... Start Date: 02/22/21 Status: Ordered Zithromax 500 mg oral tablet 2 tablet = 1,000 mg, By Mouth, Once, TAKE WHEN STIM MEDS STARTED. THIS IS A ONE TIME DOSE., # 2 tablet, 0 Refills, Soft Stop, 02/22/21 16:13:00 EDT, Tablet, [facility], Partial fill upon patient request if the prescription is for a schedul... Start Date: 02/22/21 Status: Ordered Social History Social History Type Response Smoking Status Never (less than 100 in lifetime) entered on: 06/06/19 Sex
--- OUTSIDE RECORDS SUMMARY | 2023-06-08 08:11 | XMS_ITS | Continuity of Care Document ---
Author Name Unknown Organization [facility] ter Address [address] [place] [address]- Care Team Providers Care Electronic Coils Supervisor Name Role Phone Ron RECORDS CUSTODIAN, Nancy Mensah Primary Care Physician Encounter [facility] [place] Date(s): 11/12/20 - 11/12/[address] [address]- Discharge Disposition: A-D/C Home Attending Physician: La [...] Replace Required Details, Route to Pharmacy Electronically, [facility]/pharmacy #[id number], Partial... Start Date: 11/10/20 Status: Ordered Multivitamins [...] 16:19:00 EST,... Start Date: 09/30/20 Status: Ordered Toradol Inj 30 mg, Injection, IV Push Slowly, Once, Routine, 11/12/20 11:00:00 EDT, Stop date 11/12/20 11:00:00EDT Start Date: 11/12/20 Stop Date: 11/12/20 Status: Completed Valium 5 mg oral tablet See Instructions, 1 tablet By Mouth 1 hour prior to transfer procedure. May repeat x 1., # 2 tablet, Refills 1, Tot. Refills 1, Maintenance, 11/10/20 16:10:00 EDT, Instructions Replace Required Details, Route to Pharmacy Electronically, [facility]/pharmacy... Start Date: 11/10/20 Status: Ordered Vivelle-Dot [...] EST, H... Start Date: 09/30/20 Status: Ordered Vital Signs Most recent to oldest [Reference Range]: 1 Respiratory Rate [16-30 br/min] 15 br/mi n *L* (11/12/20 10:30 AM) Social History Social History Type Response Smoking Status Never (less than 100 in lifetime) entered on: 06/06/19 Sex
--- NOTE | 2023-06-08 10:47 | MHC.OFFVISWM ---
Intake VS Expanded 06/08/23 10:56 Height 5 ft 4 in Weight 265 lb BMI 45.5 Body Fat % 60.4 Body Fat Mass 160 Fat Free Mass 105 Visceral Fat Rating 27 Body Water % 27.1 Body Water Mass 71.8 Basal Metabolic Rate/Score 1,410 Intake Visit Reasons: TV Follow Up SW[facility] - 1ST Allergies doxycycline Allergy (Intermediate, Verified 05/07/23 10:31) Vomiting HPI TV Follow Up [facility] - 1ST HPI Details Start time: 10.41am, End time: 11.01am ?I spent 15 minutes speaking with the patient on the phone plus an additional 5 minutes reviewing and updating records for a total of 20 minutes HPI Comments History of Present Illness Details Overall weight loss: 12.8lbs, or 4.61% TBWL Is doing 2 Celebrate Rebuild (1 scoop each in 8oz oatmilk) protein shakes, 2.5 Celebrate or Zone Perfect protein bars and one meal (10 forks of protein and 5 forks of salad and 5 forks of rice or potatoes) Exercise: is doing home stationary bike (resistance 4 to 10) for 300 calories 6 days per week [facility] Medical History (Updated 05/20/23 @ 10:12 by Jamel Richardson MD) Infertility associated with anovulation Hypertension Morbid obesity Surgical History (Updated 04/30/23 @ 09:25 by WAGNER Gutierrez) History of D&C Family History (Updated 04/30/23 @ 09:20 by WAGNER Gutierrez) Mother No problems noted. 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 Continue same nutritional plan of 2 Celebrate Rebuild (1 scoop each in 8oz oatmilk) protein shakes, 2.5 Celebrate or Zone Perfect protein bars and one meal (10 forks of protein and 5 forks of salad and 5 forks of rice or potatoes) 2. Exercise: continue home stationary bike (resistance 4 to 10) for 300 calories 6 days per week 3. Please continue to send me weight measurements weekly on Wednesdays (2) Hypertension: Code(s): I10 - Essential (primary) hypertension Telehealth Telehealth Location of provider rendering services: practice address Location of patient: address on file Patient Identification confirmed using: Name, : Yes Telehealth method: voice only Patient verbally consented to treatment: Yes Patient verbally consented to billing insurance company: Yes Patient informed of any privacy concerns related to visit: Yes Minutes spent on Phone/Video with Pt.: 20 Coding Level of Care Code Tele Est Pt Level 3 (62191) Diagnoses Morbid obesity E66.01 Hypertension I10 Time Spent (min) 20
[2023-06-08 10:56] VITALS: BMI 45.5
== END 2023-06-08 11:02 | disposition home or self-care (01) ==
LOC: HO.HBS 08:04
PROVIDERS: PCP Nurse Practitioner; Visit Provider Surgery
DX: E66.01 Morbid (severe) obesity due to excess calories (principal); Z68.42 Body mass index [BMI] 45.0-49.9, adult; I10 Essential (primary) hypertension
CPT/HCPCS: 99442

== ENCOUNTER → 2023-06-08 08:04 | Outpatient (BNVA) | payer BC, SELFPAY | PROVIDERS: PCP Nurse Practitioner; Visit Provider Surgery ==

== ENCOUNTER 2023-06-12 10:06 | Outpatient (REF) | payer BC, SELFPAY ==
[2023-06-13 15:24] LABS: H Pylori Breath Test Negative (Negative)
== END 2023-06-12 10:07 | disposition home or self-care (01) ==
LOC: HO.US 10:06
PROVIDERS: PCP Nurse Practitioner; Visit Provider Surgery
DX: Z11.2 Encounter for screening for other bacterial diseases (principal); E66.01 Morbid (severe) obesity due to excess calories; I10 Essential (primary) hypertension; N97.0 Female infertility associated with anovulation
CPT/HCPCS: 83013; 97802; 99211

== ENCOUNTER 2023-06-27 14:15 | Outpatient (AMB) | payer BC, SELFPAY ==
--- NOTE | 2023-06-27 14:18 | A.OFFWM_ITS ---
Intake Intake Visit Reasons: VIDEO BH Intake Allergies doxycycline Allergy (Intermediate, Verified 05/07/23 10:31) Vomiting [facility] Medical History (Updated 06/27/23 @ 14:38 by Gali Cueto) Infertility associated with anovulation Hypertension Morbid obesity Surgical History (Updated 04/30/23 @ 09:25 by WAGNER Gutierrez) History of D&C Family History (Updated 04/30/23 @ 09:20 by WAGNER Gutierrez) Mother No problems noted. 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 She reported that she has tried to have a baby for 4 years now and her doctor suggested weight loss. Pt sees a therapist Melvi Daily through [facility] since January due to marital struggles and infertility. After a miscarriage two years ago, she sought after counseling then as well. Pt has no history of problems with drugs or alcohol and no hx of inpatient psychiatric admissions. Presenting Concerns Referral Source providers Reason for referral weight loss surgery evaluation Precipitating Event obesity Living Situation Current Living Situation Own At risk of losing current housing? No Satisfied with current living situation? Yes Comments Patient lives with her and their pets. Food/Weight/Diet Expectations of change weight loss surgery and evaluation History/Relationship with food Pt stated that she has learned the difference between having a craving and being physically hungry. Pt stated that she would snack on an entire bag of chips while watching TV between 4 and dinner time which was late, around 9pm. She would snack the entire time until dinner. History/Relationship with weight Pt reported that she has been overweight since she was a child and in high school despite being very active. Yanick father ended up developing type II diabetes from his weight and health issues. Binge Eating Do you frequently eat large amounts of food in short periods of time, not feeling physically hungry? Yes Do you feel out of control when you eat a large amount of food in a short period of time? No Do you eat large amounts of food rapidly and typically alone? No Night Eating Do you wake up at least once during the night to eat? No If you wake up in the night, do you find that it is necessary to eat something in order to fall back asleep? No Do you have little or no appetite in the morning and feel very hungry in the evening, often overeating between dinner and when you go to bed? No Social History Family history and relationship Pt has been for 4 years to her and has been trying to conceive since then. Pt denied a history of trauma or abuse. She reported a good rel. with her parents and close with her two sister. She also has two brothers. Parental/Familial training and development officer obligations none Developmental history and status no issues known Social support close knit family, Cultural/Ethnic information Legal Involvement and History Current or historical involvement with the legal system? none reported Education Highest grade completed Bachelors in psychology and masters in education Preferred learning style Auditory, Verbal, Written, Learn by doing and Visual Currently enrolled in educational program? No Interested in further educational program? 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 Can also do school adjustment counseling. 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 Financial Situation Describe current financial situation Comfortable Financial assistance? None Service Service? No Mental Health and Addiction Treatment Current/Past substance abuse? No Current/Past addictive behavior concerns? No Medical and Physical Health Summary Physical exam in the last year? Yes Pain Screening Current pain? No Pain in the last few months? No Medications Is the patient compliant with medications? Yes Does the patient have Biggs Guardian in place? Not applicable Does the patient use complimentary health approaches? Yes Trauma/Abuse History History of trauma? No Questionnaires PHQ-9 Over the last 2 weeks, how often have you been bothered by any of the following problems? 1. Little interest or pleasure in doing things: not at all 2. Feeling down, depressed, or hopeless: not at all 3. Trouble falling or staying asleep, or sleeping too much: not at all 4. Feeling tired or having little energy: not at all 5. Poor appetite or overeating: not at all 6. Feeling bad about yourself - or that you are a failure or have let yourself or your family down: not at all 7. Trouble concentrating on things, such as reading the newspaper or watching television: not at all 8. Moving or speaking so slowly that other people could have noticed. Or the opposite - being so fidgety or restless that you have been moving around a lot more than usual: not at all 9. Thoughts that you would be better off or of hurting yourself in some way: not at all Total score: 0 Source: Developed by Drs. Francois Ly, Hillary Mac, Daniel Newell and colleagues, with an educational adalgisa from [employer]. Binge Eating Scale Group 1 A. I don't feel self-conscious about my wt. or body size when I'm with others. B. I feel concerned about how I look to others, but it normally does not make me fell disappointed with myself C. I do get self-conscious about my appearance and wt. which makes me feel disa ppointed in myself. D. I feel very self-conscious about my wt. and frequently I feel intense shame and disgust for myself. I try to avoid social contacts because of my self-co nsciousness. Response Group 1: B Group 2 A. I don't have any difficulty eating slowly in the proper manner. B. Although I seem to gobble down foods, I don't end up feeling stuffed because of eating to much. C. At times, I tend to eat quickly and then, I feel uncomfortably full afterwards. D. I have the habit of bolting down my food, without really chewing it. When this happens I usually feel uncomfortably stuffed because I've eaten to much. Response Group 2: A Group 3 A. I feel capable to control my eating urges when I want to. B. I feel like I have failed to control my eating more than the average person. C. I feel utterly helpless when it comes to feeling in control of my eating urges. D. Because I feel so helpless about controlling my eating I have become very desperate about trying to get control. Response Group 3: B Group 4 A. I don't have the habit of eating when I'm bored. B. I sometimes eat when I'm bored, but often I'm able to get busy and get my mind off food. C. I have a regular habit of eating when I'm bored, but occasionally, I can use some other activity to get my mind off eating. D. I have a strong habit of eating when I'm bored. Nothing seems to help me breath the habit. Response Group 4: C Group 5 A. I'm usually physically hungry when I eat something. B. Occasionally, I eat something on impulse even though I really am not hungry. C. I have the regular habit of eating foods, that I might not really enjoy, to satisfy a hungry feeling even though physically, I don't need the food. D. Although I'm not physically hungry, I get a hungry feeling in my mouth that only seems to be satisfied when I eat a food, like sandwich, that fills my mouth. Sometimes, when I eat the food to satisfy my mouth hunger, I then spit the food out so I won't gain weight. Response Group 5: B Group 6 A. I don't feel any guilt or self-hate after I overeat. B. After I overeat, occasionally I feel guilt or self-hate. C. Almost all the time I experience strong guilt or self-hate after I overeat. Response Group 6: B Group 7 A. I don't lose total control of my eating when dieting even after periods when I overeat. B. Sometimes when I eat a forbidden food on a diet, I feel like I blew it and eat even more. C. Frequently, I have the habit of saying to myself, I've blown it now, why not go all the way, when I overeat on a diet. When that happens I eat more. D. I have a regular habit of starting a strict diets for myself but I break the diets by going on an eating binge. My life seems to be either a feast or famine. Response Group 7: B Group 8 A. I rarely eat so much food that I feel uncomfortably stuffed afterwards. B. Usually about once a month, I each such a quantity of food, I end up feeling very stuffed. C. I have regular periods during the month when I eat large amounts of food, either at mealtime or at snacks. D. I eat so much food that I regularly feel quite uncomfortable after eating and sometimes a bit nauseous. Response Group 8: B Group 9 A. My level of calorie intake does not go up very high or go down very low on a regular basis. B. Sometimes after I overeat, I will try to reduce my caloric intake to almost nothing to compensate for the excess calories I've eaten. C. I have a regular habit of overeating during the night. It seems that my routine is not to be hungry in the morning but overeat in the evening. D. In my adult years, I have had week-long periods where I practically starve myself. This follows periods when I overeat. It seems I live a life of either feast or famine. Response Group 9: A Group 10 A. I usually am able to stop eating when I want to. I know when enough is enough. B. Every so often, I experience a compulsion to eat which I can't seem to control. C. Frequently, I experience strong urges to eat which I seem unable to control, but at other times I can control my eating urges. D. I feel incapable of controlling urges to eat. I have a fear of not being able to stop eating voluntarily. Response Group 10: A Group 11 A. I don't have any problem stopping eating when I feel full. B. I usually can stop eating when I feel full but occasionally overeat leaving me feeling uncomfortably stuffed. C. I have a problem stopping eating once I start and usually I feel uncomfortably stuffed after I eat a meal. D. Because I have a problem not being able to stop eating when I want, I sometimes have to induce vomiting to relieve my stuffed feeling. Response Group 11: B Group 12 A. I seem to eat just as much when I'm with others, Family social gatherings as when I'm by myself. B. Sometimes, when I'm with other persons, I don't eat as much as I want to eat because I'm self-conscious about my eating. C. Frequently, I eat only a small amount of food when others are present, because I'm very embarrassed about my eating. D. I feel so ashamed about overeating that I pick times to overeat when I know no one will see me. I feel like a closet eater. Response Group 12: B Group 13 A. I eat three meals a day with only an occasional between meal snack. B. I eat 3 meals a day, but I also normally snack between meals. C. When I am snacking heavily, I get in the habit of skipping regular meals. D. There are regular periods when I seem to be continually eating, with no planned meals. Response Group 13: B Group 14 A. I don't think much about trying to control unwanted eating urges. B. At least some of the time, I feel my thoughts are pre-occupied with trying to control my eating urges. C. I feel that frequently I spend much time thinking about how much I ate or about trying not to eat anymore. D. It seems to me that most of my waking hours are pre-occupied by thoughts about eating or not eating. I feel like I'm constantly struggling not to eat. Response Group 14: B Group 15 A. I don't think about food a great deal. B. I have strong craving for food but they last only for brief periods of time. C. I have days when I can't seem to think about anything else but food. D. Most of my days seem to be pre-occupied with thoughts about food. I feel like I live to eat. Response Group 15: B Group 16 A. I usually know whether or not I'm physically hungry. I take the right portion of food to satisfy me. B. Occasionally, I feel uncertain about knowing whether or not I'm physically hungry. A these times it's hard to know how much food I should take to satisfy me. C. Even though I might know how many calories I should eat, I don't have any idea what is a normal amount of food for me. Response Group 16: A Binge Eating Score: 13 Score less than 17 Minimal Risk Score between 18-26 Moderate Risk Score between 27-46 High Risk Assessment & Plan Assessment & Plan (1) Adjustment disorder, unspecified: Code(s): F43.20 - Adjustment disorder, unspecified (2) Morbid obesity: Code(s): E66.01 - Morbid (severe) obesity due to excess calories (3) Infertility associated with anovulation: Code(s): N97.0 - Female infertility associated with anovulation Plan Patient is doing well, she has her own therapist, no major mental health issues. She is cleared for surgery when ready. Telehealth Telehealth Location of provider rendering services: practice address Location of patient: address on file Patient Identification confirmed using: Name, : Yes Telehealth method: video Patient verbally consented to treatment: Yes Patient verbally consented to billing insurance company: Yes Patient informed of any privacy concerns related to visit: Yes Minutes spent on Phone/Video with Pt.: 45 Coding Level of Care Code Tele Psy Diag Eval (53245) Diagnoses Adjustment disorder, unspecified F43.20 Morbid obesity E66.01 Infertility associated with anovulation N97.0 Time Spent (min) 45
== END 2023-06-27 14:39 | disposition home or self-care (01) ==
LOC: HO.HBST 14:20
PROVIDERS: PCP Nurse Practitioner; Visit Provider Counselor Mental Health
DX: F43.20 Adjustment disorder, unspecified (principal); E66.01 Morbid (severe) obesity due to excess calories; N97.0 Female infertility associated with anovulation
CPT/HCPCS: 90791

== ENCOUNTER → 2023-06-27 14:15 | Outpatient (BNVA) | payer BC, SELFPAY | PROVIDERS: PCP Nurse Practitioner; Visit Provider Counselor Mental Health ==

== ENCOUNTER 2023-06-29 12:36 | Outpatient (REF) | payer BC, SELFPAY ==
--- NOTE | ~2023-06-29 | US_ITS ---
EXAMINATION: US COMPLETE ABDOMEN WITH LIVER ELASTOGRAPHY CLINICAL INFORMATION: Obesity. COMPARISON: None available. TECHNIQUE: Real-time imaging of the abdominal viscera. Noninvasive ultrasound liver fibrosis assessment is performed using Monie ElastPQ point quantification shear wave elastography (2D-SWE) with a C5-2 MHz transducer. Multiple elastography samples are obtained. FINDINGS: PANCREAS: Normal. The visualized pancreatic head and body are normal in appearance. The remainder of the pancreas is obscured from visualization by the overlying bowel gas. ABDOMINAL AORTA: The proximal, middle, and distal aortic segments are normal in caliber. INFERIOR VENA CAVA: Visualized portions are normal. LIVER: The liver demonstrates normal size and contour. There is increased hepatic echotexture, with pericholecystic sparing. No focal lesion or intrahepatic biliary duct dilatation. The right lobe measures 15.6 cm in length. The left lobe measures 9.8 cm in length. Portal flow is towards the liver (hepatopetal). Shear wave liver elastography median stiffness is 1.14 m/s (reference: normal median stiffness is 1.3 m/s or less). IQR/median stiffness to assess sampling precision is 0.07 (reference: good quality data set is IQR/median stiffness of 0.15 or less). GALLBLADDER: Normal. The gallbladder is physiologically distended without evidence of stones, sludge, polyps, wall thickening or pericholecystic fluid. COMMON BILE DUCT: Normal in caliber measuring 0.3 cm in diameter. RIGHT KIDNEY: Normal. No hydronephrosis. No renal calculi or focal parenchymal lesions. The kidney measures 11.5 cm in maximum dimension. LEFT KIDNEY: Normal. No hydronephrosis. No renal calculi or focal parenchymal lesions. The kidney measures 11.1 cm in maximum dimension. SPLEEN: No focal finding. The spleen measures 12.9 cm in maximum dimension. FREE FLUID: None. US/US abdomen comp w elastography IMPRESSION: 1. There is generalized increase in hepatic echotexture, consistent with fatty infiltration or hepatocellular disease. Please correlate clinically. Characteristic pericholecystic sparing favors fatty infiltration. No focal hepatic mass or intrahepatic biliary dilatation is seen. 2. Liver elastography: Measurements are consistent with a high probability of normal liver stiffness. 3. The spleen is top normal in size. REFERENCE: Society of Radiologists in Ultrasound Liver Stiffness Thresholds (2020): LIVER STIFFNESS THRESHOLDS: *Liver Stiffness equal or less than 1.3 m/s: High probability of being normal. *Liver Stiffness less than 1.7 m/s: In the absence of other known clinical signs, rules out compensated advanced chronic liver disease. *Liver Stiffness 1.7-2.1 m/s: Suggestive of compensated advanced chronic liver disease but need further test for confirmation. *Liver Stiffness over 2.1 m/s: Rules in compensated advanced chronic liver disease. *Liver Stiffness over 2.4 m/s: Suggestive of clinically significant portal hypertension. QUALITY OF DATA SET: *IQR/Median value equal or less than 0.15 implies a quality data set. *IQR/Median value over 0.15 implies a poor quality data set. SIGNIFICANT CHANGE FROM PRIOR EXAM: Significant change if liver stiffness measurement is 10% or greater from prior exam. OTHER CONSIDERATIONS: The stage of liver fibrosis may be overestimated in the setting of acute hepatitis, liver inflammation, elevated liver function tests, hepatic vascular congestion, obstructive cholestasis, non-fasting state, and infiltrative diseases such as amyloidosis and lymphoma. In some patients with NAFLD, the liver stiffness thresholds for compensated advanced chronic liver disease may be lower. In causes other than viral hepatitis and NAFLD, liver stiffness thresholds are not well established.
[2023-07-03 00:04] LABS: Factor VIII Activity 64 % normal (50-180)
[2023-07-04 08:33] LABS: Anti-Thrombin III Activity 105 % normal (80-135); Protein C Activity 132 % normal (70-180); Protein S Activity rflx Tot&Fr 71 % normal (60-140)
[2023-07-05 07:33] LABS: Cardiolipin IgG Ab <2.0 GPL-U/mL; Cardiolipin IgM Ab <2.0 MPL-U/mL
[2023-07-05 15:39] LABS: Factor V Leiden NEGATIVE
== END 2023-06-29 12:37 | disposition home or self-care (01) ==
LOC: HO.US 12:36
PROVIDERS: PCP Nurse Practitioner; Visit Provider Surgery
DX: E66.01 Morbid (severe) obesity due to excess calories (principal); I10 Essential (primary) hypertension; N97.0 Female infertility associated with anovulation; D68.59 Other primary thrombophilia
CPT/HCPCS: 36415; 76705; 76981; 81241; 85240; 85300; 85302; 85303; 85306; 86147

== ENCOUNTER 2023-07-04 09:57 | Outpatient (REF) | payer BC, SELFPAY ==
--- NOTE | ~2023-07-04 | FL_ITS ---
EXAMINATION: XR FLUOROSCOPY UPPER GI WITH AIR CLINICAL INFORMATION: Preop evaluation prior to bariatric surgery COMPARISON: None TECHNIQUE: Fluoroscopic air contrast upper GI examination was performed utilizing standard techniques with thin and thick barium and effervescent granules. Numerous spot images were obtained. FINDINGS: Dual and single contrast images of the esophagus demonstrate normal caliber, contour, and mucosal pattern. No evidence of stricture, mass, or ulcerations identified. Esophageal peristalsis was normal. No evidence of hiatus hernia identified. No significant gastroesophageal reflux was seen during the course of the examination and on reflux views. Dual contrast and single contrast images of the stomach demonstrated normal contour and mucosal pattern without evidence of mass, ulceration, or other abnormality. Contrast freely passed into the gastric antrum and duodenal bulb without delay. Single and air-contrast images of the duodenal bulb demonstrate no abnormality. The duodenal sweep has a normal appearance, course, and mucosal fold appearance. The imaged proximal jejunum has a normal fold pattern and caliber. FLUOROSCOPY TIME: 2 minutes 26 seconds Number of Spot Images: 9 Number of Cine: 7 DOSE AREA PRODUCT: 2066 uGy-m2 (microgray-meter squared) FL/FL upper GI w air IMPRESSION: Unremarkable examination. This procedure was performed by Danial Muro PA-C, and supervised by Dr. Johnson
== END 2023-07-04 09:58 | disposition home or self-care (01) ==
LOC: HO.XRAY 09:57
PROVIDERS: PCP Nurse Practitioner; Visit Provider Surgery
DX: E66.01 Morbid (severe) obesity due to excess calories (principal); I10 Essential (primary) hypertension; N97.0 Female infertility associated with anovulation
CPT/HCPCS: 74246

== ENCOUNTER → 2023-07-04 09:59 | Outpatient (BNV) | payer BC, SELFPAY | PROVIDERS: PCP Nurse Practitioner; Visit Provider Radiology Diagnostic Radiology | DX: Z01.818 Encounter for other preprocedural examination (principal) | CPT/HCPCS: 74246 ==

== ENCOUNTER 2023-07-09 08:19 | Outpatient (AMB) | payer BC, SELFPAY ==
--- NOTE | 2023-07-09 13:17 | MHC.OFFVISWM ---
Intake VS Expanded 07/09/23 13:24 Height 5 ft 4 in Weight 252 lb 2 oz BMI 43.3 Body Fat % 57.1 Body Fat Mass 144 Fat Free Mass 108.2 Visceral Fat Rating 24 Body Water % 29.4 Body Water Mass 74.1 Basal Metabolic Rate/Score 1,442 Intake Visit Reasons: TV Follow Up SWL Allergies doxycycline Allergy (Intermediate, Verified 05/07/23 10:31) Vomiting HPI TV Follow Up SWL HPI Details Start time: 1.08pm, End time: 1.28pm ?I spent 15 minutes speaking with the patient on the phone plus an additional 5 minutes reviewing and updating records for a total of 20 minutes HPI Comments History of Present Illness Details Overall weight loss: 25.6lbs, or 9.22% TBWL Is doing 2 Celebrate Rebuild protein shakes (1 scoop each in 8oz oat milk), 2.5 Celebrate protein bars and one meal (10 forks of protein and 10 forks of salad or vegetables) Exercise: is doing home stationary bike daily for 60 minutes for 315 calories [facility] Medical History (Updated 06/27/23 @ 17:15 by Jamel Richardson MD) Infertility associated with anovulation Hypertension Morbid obesity Surgical History (Updated 04/30/23 @ 09:25 by WAGNER Gutierrez) History of D&C Family History (Updated 04/30/23 @ 09:20 by WAGNER Gutierrez) Mother No problems noted. 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 Continue present nutritional plan of 2 Celebrate Rebuild protein shakes (1 scoop each in 8oz oat milk), 2.5 Celebrate protein bars and one meal (10 forks of protein and 10 forks of salad or vegetables) 2. Exercise: continue home stationary bike daily for 60 minutes for 315 calories 3. Continue to send me weight measurements weekly on Wednesdays Telehealth Telehealth Location of provider rendering services: practice address Location of patient: address on file Patient Identification confirmed using: Name, : Yes Telehealth method: voice only Patient verbally consented to treatment: Yes Patient verbally consented to billing insurance company: Yes Patient informed of any privacy concerns related to visit: Yes Minutes spent on Phone/Video with Pt.: 20 Coding Level of Care Code Tele Est Pt Level 3 (96266) Diagnoses Morbid obesity E66.01 Time Spent (min) 20
[2023-07-09 13:24] VITALS: BMI 43.3
== END 2023-07-09 13:29 | disposition home or self-care (01) ==
PROVIDERS: PCP Nurse Practitioner; Visit Provider Surgery
DX: E66.01 Morbid (severe) obesity due to excess calories (principal); Z68.41 Body mass index [BMI] 40.0-44.9, adult
CPT/HCPCS: 99442

== ENCOUNTER → 2023-07-09 08:19 | Outpatient (BNVA) | payer BC, SELFPAY | PROVIDERS: PCP Nurse Practitioner; Visit Provider Surgery ==

== ENCOUNTER 2023-07-16 08:52 | Outpatient (AMB) | payer BC, SELFPAY ==
[2023-07-16 13:11] VITALS: BMI 42.8
--- NOTE | 2023-07-16 13:11 | MHC.OFFVISWM ---
Intake VS Expanded 07/16/23 13:11 Height 5 ft 4 in Weight 249 lb 2 oz BMI 42.8 Body Fat % 56.2 Body Fat Mass 140 Fat Free Mass 109.2 Visceral Fat Rating 24 Body Water % 30 Body Water Mass 74.7 Basal Metabolic Rate/Score 1,424 Intake Visit Reasons: TV Pre Op LSG 07/24/23 Allergies doxycycline Allergy (Intermediate, Verified 07/16/23 13:12) Vomiting Medication List - Last Reconciled 07/16/23 by Jamel Richardson MD coenzyme Q10 (Ultra CoQ10) 75 mg PO DAILY labetalol mg PO mecobalamin (vitamin B12) 1,000 mcg sublingual DAILY multivitamin 1 tab PO DAILY omega 7-elp-utl-fish oil 300-1,000 mg (Fish Oil) 1 cap PO DAILY ondansetron 4 mg PO Q12H pantoprazole 40 mg PO DAILY polyethylene glycol 3350 (Miralax) 17 grams PO DAILY sucralfate 10 mL PO BID thiamine HCl (vitamin B1) 100 mg PO DAILY vitamin A palmitate 10,000 units PO DAILY HPI TV Pre Op LSG 07/24/23 HPI Details Start time: 2.30pm, End time: 2.45pm. An additional 15 minutes were used at a different part of the day to complete this note and review patient's records. ?I spent 15 minutes speaking with the patient on the phone plus an additional 15 minutes reviewing and updating records for a total of 30 minutes HPI Comments History of Present Illness Details Overall weight loss: 28.6 lbs, 10.30% TBWL Is doing 2 Celebrate Rebuild protein shakes (1 scoop each in 8oz oat milk), 2.5 Celebrate protein bars and one meal (10 forks of protein and 10 forks of salad or vegetables) Exercise: is doing home stationary bike daily for 60 minutes for 315 calories [facility] Medical History (Updated 06/27/23 @ 17:15 by Jamel Richardson MD) Infertility associated with anovulation Hypertension Morbid obesity Surgical History (Updated 04/30/23 @ 09:25 by WAGNER Gutierrez) History of D&C Family History (Updated 04/30/23 @ 09:20 by WAGNER Gutierrez) Mother No problems noted. 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 Plan for lap sleeve gastrectomy including upper GI endoscopy. All tests has been completed and reviewed and the patient is cleared for the surgery. ?If diaphragmatic or ventral hernias are present at time of surgery, these will be repaired laparoscopically as well. Risks and complications were discussed in detail including possible conversion to an open procedure, anastomotic leak, bleeding requiring transfusion, small bowel obstruction, , DVT and pulmonary embolism, cardiac, or pulmonary complications, as detention complications such as anastomotic ulcer, insufficient weight loss and vitamin deficiencies. I emphasized the importance of close follow-up, adherence to instructions and good communication. So far she has proven to be an excellent communicator and very compliant with all our directions accomplishing a great weight loss. I believe that she is an excellent candidate and she is ready. 2. Preop prescriptions were provided and explained the purpose of each one. Need to be purchased preop. Start Pantoprazole now as you get it from the pharmacy, 1 pill per day. Sucralfate and Zofran are for after surgery as needed. 3. Bowel prep: please do 7 packets ?of Miralax mixing each one with a an 8oz glass of water, crystal light, gatorade zero, or propel ?on 07/22/23 and the same amount on 07/23/23. Continue the protein shakes during? the bowel prep. 4. Needs to purchase 1oz medicine cups . 5. Needs to purchase Children's liquid Tylenol for postop pain control. 6. Avoid aspirin, motrin, Advil, Aleve, Ibuprofen, Naproxyn. Tylenol is OK. 7. She needs to purchase the Celebrate 4:1 protein shakes from the hospital's gift [facility]. 8. Will do basic preop blood work-up any day between Sunday07/17/23 and Sunday07/21/23 fasting for 12 hours and is scheduled to see the Anesthesiologist prior to the day of surgery. 9. Importance of adherence to postop folllow-up and recommendations was underscored and she understands that. 10. Stop food and bars as of Sunday07/17/23 and continue with 2 Celebrate Rebuild protein shakes (ONE scoop EACH in 8oz almond milk) at 8am-10am and 11am-1pm and THREE more Celebrate Rebuild protein shakes with TWO scoops in 8oz of almond milk at 2pm-4pm, 5pm-7pm and 8pm-10pm. 11. No soups, broths or V8 12. The patient's?medical?history has been reviewed and they are considered low risk for post op DVT and therefore DVT prophylaxis is not considered necessary. Travel after surgery was reviewed. The patient has not disclosed any travel plans during the first 30 days after surgery and they have been advised that within the first 30 days after surgery any bus, plane, train or car travel over 2 hours in duration is contraindicated due to the possibility of developing blood clots from immobility. Any travel, needs to include periods of ambulation of 10 minutes in duration every 2 hours.? Patient was instructed to discuss any plans for travel during this period with their bariatric surgeon.? 13. Please take at the day of surgery the following medications: labetalol only. Pleas check your blood pressure daily in the morning going forward and let me know if it is below 120/70. 14. Stop any control pills and don't use them for one month after surgery 15. Absolutely no smoking or vaping, or marijuana until the surgery and for at least the first 4 weeks. Only nicotine patches are allowed. 16. Send me weight measurements on Sunday and then on Sunday07/24/23 the day of surgery before you go to the hospital. 17. Avoid any steroids by mouth for any reason. Let me know if someone prescribes them to you Orders: Orders Type and Screen Today E66.01 - Morbid (severe) obesity due to excess calories, I10 - Essential (primary) hypertension C Reactive Protein Today E66.01 - Morbid (severe) obesity due to excess calories, I10 - Essential (primary) hypertension Hemoglobin A1c Today E66.01 - Morbid (severe) obesity due to excess calories, I10 - Essential (primary) hypertension Comprehensive Met. Panel Today E66.01 - Morbid (severe) obesity due to excess calories, I10 - Essential (primary) hypertension TSH reflex Free T4 Today E66.01 - Morbid (severe) obesity due to excess calories, I10 - Essential (primary) hypertension Prothrombin Time INR Today E66.01 - Morbid (severe) obesity due to excess calories, I10 - Essential (primary) hypertension Partial Thromboplastin Time Today E66.01 - Morbid (severe) obesity due to excess calories, I10 - Essential (primary) hypertension Lipid Panel Today E66.01 - Morbid (severe) obesity due to excess calories, I10 - Essential (primary) hypertension Complete Blood Count Auto Diff Today E66.01 - Morbid (severe) obesity due to excess calories, I10 - Essential (primary) hypertension Insulin Today E66.01 - Morbid (severe) obesity due to excess calories, I10 - Essential (primary) hypertension Medications: New pantoprazole 40 mg PO DAILY 30 tabs 2RF K21.9 - Gastro-esophageal reflux disease without esophagitis sucralfate 10 mL PO BID 400 mL 2RF K21.9 - Gastro-esophageal reflux disease without esophagitis ondansetron Only take one every 12 hours as needed if you have nausea 4 mg PO Q12H 20 tabs 0RF nausea and vomiting R11.0 - Nausea polyethylene glycol 3350 (Miralax) Mix each packet with 8oz of water, Crystal light, or Gatorade zero, or Propel and do 7 packets on 07/22/23 and another 7 packets on 07/23/23 17 grams PO DAILY 14 ea 0RF Z01.818 - Encounter for other preprocedural examination Telehealth Telehealth Location of provider rendering services: practice address Location of patient: address on file Patient Identification confirmed using: Name, : Yes Telehealth method: voice only Patient verbally consented to treatment: Yes Patient verbally consented to billing insurance company: Yes Patient informed of any privacy concerns related to visit: Yes Minutes spent on Phone/Video with Pt.: 30 Coding Level of Care Code Tele Est Pt Level 4 (46988) Diagnoses Morbid obesity E66.01 Time Spent (min) 30
== END 2023-07-16 14:46 | disposition home or self-care (01) ==
LOC: HO.HBS 08:52
PROVIDERS: PCP Nurse Practitioner; Visit Provider Surgery
DX: E66.01 Morbid (severe) obesity due to excess calories (principal); Z68.41 Body mass index [BMI] 40.0-44.9, adult
CPT/HCPCS: 99024

== ENCOUNTER → 2023-07-16 08:52 | Outpatient (BNVA) | payer BC, SELFPAY | PROVIDERS: PCP Nurse Practitioner; Visit Provider Surgery ==

== ENCOUNTER 2023-07-18 11:48 | Outpatient (REF) | payer BC, SELFPAY ==
[2023-07-18 12:16] LABS: MANUAL DIFF FLAG NO
[2023-07-18 12:40] LABS: Basophils Percent Auto 0.5 % (0-2); Eosinophils Absolute Auto 0.4 X10*3/uL (0.0-0.4); Eosinophils Percent Auto 6.4 % (0-4); Hematocrit 39.4 % (37.0-47.0); Hemoglobin 13.7 g/dl (12.0-16.0); Imm Gran Abs Auto 0.01 X10*3/uL (0.00-0.03); Imm Gran Pct Auto 0.2 % (0.0-0.4); Lymphocytes Absolute Auto 1.9 X10*3/uL (1.2-4.9); Lymphocytes Percent Auto 29.3 % (20-40); Mean Corpuscular HGB Conc 34.8 g/dl (31.0-35.0); Mean Corpuscular Hemoglobin 30.6 pg (27.0-33.0); Mean Corpuscular Volume 87.9 fL (80.0-98.0); Mean Platelet Volume 10.6 fL (9.4-12.3); Monocytes Absolute Auto 0.6 X10*3/uL (0.1-1.2); Monocytes Percent Auto 8.4 % (2-11); Neutrophils Absolute Auto 3.6 x10*3/uL (2.0-8.3); Neutrophils Percent Auto 55.2 % (45-73); Platelet Count 307 X10*3/uL (160-400); Red Blood Count 4.48 X10*6/uL (4.20-5.50); Red Cell Distribution Width 11.9 % (11.0-16.0); White Blood Count 6.6 X10*3/uL (4.8-10.8)
[2023-07-18 12:50] LABS: Estimated Average Glucose 88 mg/dL; Hemoglobin A1c % 4.7 % (<6.0)
[2023-07-18 13:04] LABS: INTERNATIONAL NORM RATIO 1.2 (0.9-1.1); Prothrombin Time 14.7 SEC (11.1-13.3)
[2023-07-18 13:06] LABS: Partial Thromboplastin Time 58.5 SEC (26.0-36.4)
[2023-07-18 13:10] LABS: Alanine Aminotransferase 22 U/L (0-31); Albumin Level 4.3 g/dL (3.5-5.0); Alkaline Phosphatase 66 U/L (39-117); Anion Gap 13 (12-20); Aspartate Amino Transferase 11 U/L (5-31); Bilirubin Total 1.1 mg/dL (0.0-1.0); Blood Urea Nitrogen 9 mg/dL (9-16); C Reactive Protein 0.58 mg/dL (< or = 0.50); Calcium 9.8 mg/dL (8.4-10.2); Carbon Dioxide 27 mmol/L (22-29); Chloride 104 mmol/L (96-108); Cholesterol 152 mg/dL (<200); Estimated Glomerular Filt Rate > 60; Glucose Random 89 mg/dL (60-115); HDL Cholesterol 35 mg/dL (>40); LDL Cholesterol Calculated 98 mg/dL (<100); Potassium 4.1 mmol/L (3.3-5.1); Sodium 140 mmol/L (135-145); Triglycerides 96 mg/dL (<150)
[2023-07-18 13:25] LABS: Insulin 5 uU/mL (2-29); TSH reflex Free T4 0.73 uIU/mL (0.32-4.0)
== END 2023-07-18 11:49 | disposition home or self-care (01) ==
LOC: HO.LAB 11:48
PROVIDERS: PCP Nurse Practitioner; Visit Provider Surgery
DX: E66.01 Morbid (severe) obesity due to excess calories (principal); I10 Essential (primary) hypertension
CPT/HCPCS: 36415; 80053; 80061; 83036; 83525; 84443; 85025; 85610; 85730; 86140

== ENCOUNTER 2023-07-24 08:27 | Inpatient (IN) | payer BC, SELFPAY ==
[2023-07-18 08:39] VITALS: BMI 42.7
--- NOTE | 2023-07-21 09:38 | P.HPSUR_ITS ---
Pre-Procedural Eval Section A Date of Service: 07/21/23 The patient is an INPATIENT: Yes The History & Physical has been completed within 30 days and I have reviewed it.: Yes Section B Chief Complaint: Morbid (severe) obesity due to excess calories Relevant Family History (Specify if Yes): No Relevant Social History: None Present Medications: None Medical History: No relevant PMH History of Previous Operations: No relevant previous surgery Allergies: Allergies Allergy/AdvReac Type Severity Reaction Status Date / Time tree nut Allergy Severe mouth Verified 07/18/23 08:38 itching/severe GI pain doxycycline Allergy Intermediate Vomiting Verified 07/18/23 08:38 tropical fruits Allergy Severe mouth Uncoded 07/18/23 08:38 itching/severe GI pain Review of Systems Sugical H&P ROS: Negative: Constitution, Cardiovascular, Respiratory, Neurological, Psychiatric, Hem-Onc, Allergic/Immunologic, Gastrointestinal, Genitourinary, Musculoskeletal, Integumentary, Endocrine and Eyes/Ears/N ose/Throat Exam Surgical H&P Exam: Normal: HEENT, Normal: Heart, Normal: Lungs, Normal: Extremities, Normal: Abdomen, Normal: Skin and Normal: Neurological Plan Diagnosis/Plan: Unchanged I have reviewed the history and physical and performed a pertinent physical examination on my patient. No changes have occurred unless specified. Time Spent With Patient Time: Total time managing care of this patient today ____ minutes.
[2023-07-21 10:26] LABS: INTERNATIONAL NORM RATIO 1.2 (0.9-1.1); Prothrombin Time 14.2 SEC (11.1-13.3)
[2023-07-21 10:28] LABS: Partial Thromboplastin Time 57.6 SEC (26.0-36.4)
--- NOTE | 2023-07-23 09:30 | HO.ANESPROP2 ---
Documented by User: Erendira Lobato NP 07/23/23 09:33 HPI - Anesthesia Eval Consult details Narrative: 33yo F for Gastrectomy Sleeve,EGD,poss diaphragmatic hernia,poss ventral hernia,poss open, Arixtra for antiphospholipid antibody PMFSH Active Problems Active Problems: All Active Problems (Updated 07/21/23 @ 17:16 by Jamel Richardson MD) Antiphospholipid antibody syndrome (Acute) Elevated partial thromboplastin time (PTT) (Acute) Hypercoagulation syndrome (Acute) Adjustment disorder, unspecified (Acute) Vitamin B1 deficiency (Acute) Vitamin A deficiency (Acute) Vitamin B12 deficiency (Acute) Infertility associated with anovulation (Acute) Hypertension (Acute) Morbid obesity (Acute) Past Medical History Medical History History of in vitro fertilization Miscarriage Infertility associated with anovulation Hypertension Morbid obesity Family History Family History Mother No problems noted. Father Diabetes Heart disease Surgical History Surgical History History of facial surgery History of D&C Social History Social History Household Members: Spouse Housing: House Are you a primary director day care center to a significant other at home: No Do you presently have visiting nurse or other home services: No Alcohol intake: current Alcohol intake frequency: holidays/special occasions only Patient Tobacco Use Status: Never used Tobacco Use of substances other than those prescribed or required for medical reasons: Yes Substance Use Type Other:: THC edibles on occasion Have you been hit, kicked, punched, or otherwise hurt by someone within the past year? 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 Allergies Allergy/AdvReac Type Severity Reaction Status Date / Time tree nut Allergy Severe mouth Verified 07/18/23 08:38 itching/severe GI pain doxycycline Allergy Intermediate Vomiting Verified 07/18/23 08:38 tropical fruits Allergy Severe mouth Uncoded 07/18/23 08:38 itching/severe GI pain Home Medications Medication Instructions Recorded Confirmed Last Taken Type coenzyme Q10 75 mg capsule (Ultra 75 mg PO DAILY 04/30/23 07/17/23 07/20/23 History CoQ10) labetalol 100 mg tablet 150 mg PO BID 04/30/23 07/17/23 07/24/23 History multivitamin 1 tab PO DAILY 04/30/23 07/17/23 07/23/23 History omega 4-ouj-bqq-fish oil 300 1 cap PO DAILY 04/30/23 07/17/23 07/20/23 History mg-1,000 mg capsule (Fish Oil) Exam Height,Weight and Vital Signs: Height 5 ft 4 in Weight 112.945 kg Pertinent Lab Results Pertinent Lab Results: Laboratory Tests 07/18/23 07/21/23 12:10 09:05 PT 14.2 H INR 1.2 H APTT 57.6 H Blood Type O Positive Antibody Screen NEGATIVE Laboratory Tests 07/18/23 12:14 WBC 6.6 Hgb 13.7 Hct 39.4 Plt Count 307 Sodium 140 Potassium 4.1 Chloride 104 Carbon Dioxide 27 BUN 9 Creatinine 0.76 Narrative Narrative: EKG 07/2023 Vent. Rate : 078 BPM Atrial Rate : 078 BPM P-R Int : 160 ms QRS Dur : 084 ms QT Int : 398 ms P-R-T Axes : 049 018 035 degrees QTc Int : 453 ms Normal sinus rhythm Normal ECG No previous ECGs available Assessment and Plan Assessment Anesthesia Assessment: Chart Reviewed Documented by User: Dayna Corado MD 07/24/23 09:39 HPI - Anesthesia Eval Consult details Narrative: 33yo F for Gastrectomy Sleeve,EGD,poss diaphragmatic hernia,poss ventral hernia,poss open, Arixtra for antiphospholipid antibody , on fundoparinoux PMFSH Past Medical History Medical History History of in vitro fertilization Miscarriage Infertility associated with anovulation Hypertension Morbid obesity Family History Family History Mother No problems noted. Father Diabetes Heart disease Family history of problems with anesthesia: No Surgical History Surgical History History of facial surgery History of D&C History of Problems with Anesthesia: No Social History Social History Household Members: Spouse Housing: House Are you a primary director day care center to a significant other at home: No Do you presently have visiting nurse or other home services: No Alcohol intake: current Alcohol intake frequency: holidays/special occasions only Patient Tobacco Use Status: Never used Tobacco Use of substances other than those prescribed or required for medical reasons: Yes Substance Use Type Other:: THC edibles on occasion Have you been hit, kicked, punched, or otherwise hurt by someone within the past year? 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 Allergies Allergy/AdvReac Type Severity Reaction Status Date / Time tree nut Allergy Severe mouth Verified 07/18/23 08:38 itching/severe GI pain doxycycline Allergy Intermediate Vomiting Verified 07/18/23 08:38 tropical fruits Allergy Severe mouth Uncoded 07/18/23 08:38 itching/severe GI pain Home Medications Medication Instructions Recorded Confirmed Last Taken Type coenzyme Q10 75 mg capsule (Ultra 75 mg PO DAILY 04/30/23 07/17/23 07/20/23 History CoQ10) labetalol 100 mg tablet 150 mg PO BID 04/30/23 07/17/23 07/24/23 History multivitamin 1 tab PO DAILY 04/30/23 07/17/23 07/23/23 History omega 6-xzc-bvd-fish oil 300 1 cap PO DAILY 04/30/23 07/17/23 07/20/23 History mg-1,000 mg capsule (Fish Oil) Exam Airway Mallampati Class: III TM Dist: <=3cm Neck ROM: Full Heart: rrr Lungs: cta Assessment and Plan Assessment Anesthesia Assessment: Anesthesia Plan Discussed Final Anesthetic Review Family History of Problems with Anesthesia: No History of Problems with Anesthesia: No NPO: Yes ASA Class: III Final Preanesthetic Review: No Changes in Pt Med Stat, Meds/Allgs Chart Reviewed, Consent Obtained/Reviewed and Anes Risks/Benef Reviewed Patient Risk: Intermediate Procedure Risk: Intermediate Anesthetic Plan Anesthetic Plan: GA Disposition: Standard PACU
[2023-07-24] VITALS (12 sets, daily range): BP systolic 111–164; BP diastolic 72–97; PULSE 60–82; RESP 14–20; TEMP 36–36.8; O2SAT 95–100; BMI 41.4
--- NOTE | 2023-07-24 07:41 | P.BOP_ITS ---
Brief Operative Note Date of Service: 07/24/23 Pre-op diagnosis: Morbid obesity with comorbidities (see below) Post-op diagnosis: same Procedure: INITIAL PATIENT BMI ON PRESENTATION AT OUR OFFICE: 47.7 kg/m2 LAST BMI BEFORE SURGERY: 42.6 kg/m2 COMORBIDITIES: hypertension, infertility, Lupus anticoagulant ?The patient presented to the Weight Management Program with significant obesity that was negatively impacting the patient's comorbidities as listed above.? The program is a phased program with a special focus on preoperative medical weight management to promote substantial weight loss and prepare the patients for the second phase of the program: bariatric surgery. The patient participated in an intensive weekly lifestyle ?intervention and exercise program during which the patient ?has lost between the initial office visit and the last preoperative visit 31.2lbs, or 11.23% of initial actual body weight. It was deemed appropriate for the patient to now have bariatric surgery. In light of the current Covid-19 pandemic and the well documented strong association of obesity and increased risk of worse outcomes if infected with Covid-19 (REFERENCES: https://pubmed.ncbi.nlm.nih.gov/84781494/ ,? h ttps://pubmed.ncbi.nlm.nih.gov/72390803/ ), any delay in undergoing bariatric surgery may lead to the patient's worsening health condition and increased?risk of more severe Covid-19 disease if infected. In addition a recent?study from [facility] published in [facility] on 08/01/2021 ([email or web address]) found that, among patients with obesity, substantial weight loss achieved with surgery was associated with improved outcomes of COVID-19 infection. The findings suggest that obesity can be a modifiable risk factor for the severity of COVID-19 infection. In addition, the patient met the BMI-criteria for bariatric surgery based on the BMI on initial presentation. The patient should not be penalized for achieving such weight loss because ?it is not sustainable long-term without surgical intervention and it was achieved in preparation for bariatric surgery ?under my direction and based on my published research ([email or web address]).[email or web address] and? https://www.soard.org/article/[email or web address](92)48766-X/pdf ) ?that a 10% preoperative weight loss improves long-term weight loss after surgery and reduces perioperative complications.? Insurance carriers such as [facility] have endorsed my recommendations ?and have included in their policies criteria to include a 10% preoperative weight loss requirement. PROCEDURE: Esophago-gastroscopy, laparoscopic sleeve gastrectomy and laparoscopic gastropexy INDICATIONS: This is a 33 year-old female who was electively scheduled for laparoscopic, possibly open sleeve gastrectomy. The risks and complications of the procedure were discussed with the patient in advance, particularly the possibility of ; pulmonary embolism; staple line leak; bleeding; GERD; cardiac, pulmonary, or renal complications; as well as long-term problems such as insufficient weight loss, vitamin deficiency, strictures, or ulcers. The patient understood all the risks, and was in agreement to proceed with surgery. DESCRIPTION OF PROCEDURE: After informed consent was obtained from the patient, the patient was given preoperative antibiotics, and was transferred to the operating room. After successful induction of general anesthesia, pneumatic compression devices were placed on both lower extremities. An upper endoscopy was performed next. The oropharynx and esophagus appeared to be within normal limits. There was no diaphragmatic hernia present consistent with the findings of the preoperative upper GI. The stomach was entered. Then after all fluid and air were suctioned and the stomach was fully decompressed, the scope was withdrawn and secured in the mid esophagus. The patient was then prepped and draped in the usual sterile manner, and abdominal access was established at the right upper quadrant with the Doug technique. A 12 mm blunt port was inserted, and the abdomen was insufflated with CO2 to a pressure of 15 mmHg. Under direct visualization, additional ports were placed, specifically two 5 mm Versi-step ports to the left upper quadrant, and a 5 mm Versi-Step port to the right upper quadrant. 1% lidocaine plain was used to infiltrate all port sites as well as all fascia defects. Using the EndoClose suture passer device, I placed a #1 Polysorb tie across the falciform ligament in order to retract it up against the abdominal wall and prevent injury of the ligament with our instruments during the procedure. Following that, the patient was placed in a steep reverse Trendelenburg position. An additional 5 mm port was placed to the right flank for the Mediflex retractor that was used to retract the left lobe of the liver. The gastro-esophageal fat pad was opened with the ultrasonic device (Thun derbeat, Olympus) and the anterior esophagus and hiatus were exposed. The angle of His was opened with the ultrasonic device the fundus of the stomach from any diaphragmatic and splenic attachments. I then opened the gastrocolic ligament between the transverse colon and the greater curvature of the stomach with the ultrasonic device to enter the lesser sac and facilitate the ligation of the short gastric vessels. I started at a mid-point along the greater curvature and using the Thunderbeat, all short gastric vessels were divided all the way to the angle of His until the left yuliana was completely dissected at its entirety. I then divided the gastro-colic ligament distally to a distance of about 3-4 cm proximal to the pylorus. The stomach was then divided transversely with one Endo PEG-45 purple and four PEG-60 articulating purple loads using the SIGNIA stapler and loads. Every effort was made that the gastric sleeve had a tubular shape and an even caliber throughout. Once the sleeve resection was completed, the staple line of the gastric sleeve was reinforced with Hemoclips. The resected stomach was retrieved without difficulty from the Doug port. A gastropexy was then performed in order to prevent postoperative GERD and partial gastric volvulus. Several interrupted 2.0 Surgidac sutures were placed between the sleeve's staple line and the previously divided greater omentum and gastro-colic ligament using the Endo-Stitch device. ?An upper endoscopy was performed. There was no narrowing at the GE junction. The scope was easily advanced all the way to the pylorus which was clearly visualized. There was no narrowing anywhere and the sleeve's caliber was even throughout. The sleeve's staple line was inspected and there was no evidence of ischemia, bleeding or dehiscence. At that point the gastroscope was withdrawn from the patient?s mouth while we were decompressing the bowel and the stomach from any remaining air. I looked into the lesser sac to see how the sleeve was situating and it was situating well. There was no bleeding from the staple line, spleen, or short gastric vessels. The Mediflex retractor was removed, and the undersurface of the liver was inspected and there was no bleeding. The patient was placed in supine position. I closed the fascial defect of the 12 mm port site with a figure of eight #1 Polysorb suture. Then 30cc Ropivacaine plain with 10 mg of Dexamethasone were used to infiltrate the fascial closure as well as all skin incisions. At this point, the abdomen was deflated, all ports were removed under direct vision, and no bleeding was noted from any of the port sites. The skin incisions were irrigated with saline and were closed with 4-0 absorbable monofilament sutures. Steri-Strips and OpSites were used to cover all incisions. The patient was extubated and was transferred in stable condition to the recovery room for further care. I was present and performed all suero parts of the procedure. Ms. Roberts was the assistant pressman. There were no residents to assist with this case. Maximino Richardson MD, PhD, FACS Surgeon: Jamel Richardson MD Anesthesia: GETA, local and other (TAP block) Was an Air Turning Machine Feeder used for this Procedure?: No Air Turning Machine Feeder: Amanda Roberts Estimated blood loss (mL): 10 IV fluids (mL): 3,000 Urine output (mL): 0 (No Pruett to record output) Pathology: other (Stomach) Condition: stable Disposition: PACU
--- NOTE | 2023-07-24 07:45 | P.PNGS_ITS ---
Subjective Subjective Date of Service: 07/25/23 Interval history: Feels well. Mild incisional pain. She is tolerating phase 1 bariatric diet Physical Exam 2 Vital Signs: Vital Signs: BMI result Body Mass Index 42.7 GI: Inspection: Yes normal to inspection, Yes incision (clean, dry and intact) and Yes obesity Palpation (GI): Soft to palpation Extrem: Right lower extremity: normal to inspection (no calf tenderness) L eft lower extremity: normal to inspection (no calf tenderness) Objective Data Labs 07/25/23 06:17 07/25/23 06:17 Procedures Date of Service Date of Service: 07/25/23 Progress Note: A&P Assessment and plan (1) Morbid obesity: Status: Acute Assessment and Plan: s/p laparoscopic sleeve gastrectomy and gastropexy Doing well Will check am labs and if OK the patient will be discharged home (2) Hypertension: Status: Acute (3) Infertility associated with anovulation: Status: Acute (4) Antiphospholipid antibody syndrome: Status: Acute (5) S/P gastric sleeve procedure: Status: Acute Time Spent With Patient Time: Total time managing care of this patient today ____ minutes. Quality Stroke Does the patient have a stroke diagnosis?: No VTE Prior VTE?: No VTE Risk Level:: Surgical - moderate VTE Device Contraindication: N/A - Device Ordered VTE Drug Contraindication: Treatment Not Indicated
[2023-07-24 08:45] LABS: UPreg QC Valid YES; Urine Pregnancy NEGATIVE (NEGATIVE)
--- NOTE | 2023-07-24 08:46 | PHA.MEDREC ---
Pharmacy Consult ? Medication Reconciliation Pharmacy has completed the medication reconciliation. Reviewed med rec done by nursing
[2023-07-24] MEDS: Aprepitant 32 MG/4.4 ML VIAL IVPUSH (08:53)
[2023-07-24] MEDS: Lactated Ringers 1,000 ML 999 ML IV (08:53)
[2023-07-24] MEDS: Lactated Ringers 1,000 ML 100 ML IVCONT ×3 (10:10→23:48)
--- NOTE | 2023-07-24 12:51 | P.DS_ITS ---
DS: Providers Provider Date of Service: 07/25/23 Date of admission: 07/24/23 08:27 Primary care physician: Nancy Velasquez APRN DS: Diagnosis Discharge Diagnosis (1) Morbid obesity: Status: Acute (2) Hypertension: Status: Acute (3) Infertility associated with anovulation: Status: Acute (4) Antiphospholipid antibody syndrome: Status: Acute (5) S/P gastric sleeve procedure: Status: Acute DS: Summary Hospital Course Hospital Course: ADMITTING DIAGNOSIS: morbid obesity, HTN, Antiphospholipid antibody DISCHARGE DIAGNOSIS: same, s/p laparoscopic sleeve gastrectomy PAST SURGICAL HISTORY: none PROCEDURE: upper endoscopy, laparoscopic sleeve gastrectomy DISCHARGE SUMMARY: History of Present Illness: The patient is a 33 year-old woman with a BMI of 47.6 kg/m2 and associated co- morbidities as described above. The patient had extensive work-up, lost 28.6lbs preoperatively and was electively scheduled for laparoscopic, possible open sleeve gastrectomy and gastropexy. Risks and complications of the surgery were discussed with the patient in advance, particularly the possibility of , pulmonary embolism, anastomotic leak, bleeding, bowel injury, GERD, cardiac, renal or pulmonary complications. The patient understood all the risks and was in agreement with the surgical plan. Hospital Course: The patient underwent an uneventful laparoscopic sleeve gastrectomy with gastropexy on the day of admission. Postoperatively, the patient was transferred to the surgical floor. The patient received IV Acetaminophen and IV dilaudid for pain control. Patient was started on bariatric phase 1 diet POD #0. On postoperative day one, the patient was feeling well without nausea, vomiting, fevers, or tachycardia. The patient had some mild incisional pain and the abdomen was soft. On the morning of postoperative day one, the patient was continued on 1 ounce of water or ice every half hour. During the day, the patient did fairly well, having some incisional pain, but able to ambulate adequately and to tolerate liquids well. Since the patient is doing well, we decided that the patient was ready to be discharged. The patient was given instructions to follow-up with me next week and to call my office for any fever over 101, persistent abdominal pain, nausea, vomiting, GERD, symptoms of DVT such as calf tenderness, or leg swelling, or pulmonary embolism such as chest pain or shortness of breath. The patient was also instructed to drink 40-60 ounces of liquids per day using the 1-ounce cups. The patient had been given prescriptions for Tylenol for pain, Zofran prn for nausea, and pantoprazole and carafate previously. The patient was encouraged to ambulate and use the incentive spirometer. The patient was allowed to shower, but no baths, and encouraged to stay active at home. All of these instructions were given to the patient personally. All questions were answered and the patient understood all instructions, the instructions were also given to the patient in print. Time Attestation Discharge coordination time: Less than 30 minutes Quality: Safe Use of Opioids Does Pt have an Active Cancer Diagnosis on the Problem List?: No Quality: Stroke Does the patient have a stroke diagnosis?: No Physical Exam Vital Signs: Vital Signs: Last Vital Signs Temp 98.3 F 07/24/23 08:50 Pulse 75 07/24/23 08:50 Resp 16 07/24/23 08:50 BP 111/83 07/24/23 08:50 Pulse Ox 98 07/24/23 08:50 O2 Del Method Room Air 07/24/23 08:50 BMI result Body Mass Index 41.4 DS: Data Data Completed and Pending Pending studies at discharge: Pending at discharge 07/24/23 12:03 Surgical [PTH] Routine Labs on day of discharge: Laboratory Results - last 24 hr 07/24/23 08:21 Urine Test NEGATIVE Discharge Plan Discharge Anticipated Discharge Date/Time: 07/25/23 10:00 Patient Disposition: Home, Self-Care Discharge Diagnosis: s/p sleeve gastrectomy Referrals: Nancy Velasquez APRN [Primary Care Provider] - 1 Week Discharge Medications: Continued pantoprazole 40 mg tablet,delayed release (DR/EC) 40 mg PO DAILY Qty: 30 2RF sucralfate 100 mg/mL suspension 10 ml PO BID Qty: 400 2RF ondansetron 4 mg tablet,disintegrating 4 mg PO Q12H Qty: 20 0RF Rx Instructions: Only take one every 12 hours as needed if you have nausea Held fondaparinux 2.5 mg/0.5 mL syringe 2.5 mg subcut Q24H Qty: 5 2RF Hold Instructions: Resume on 07/26/23. Start tomorrow 07/26/23 at 3pm labetalol 100 mg tablet 150 mg PO BID Hold Instructions: Resume on 07/26/23. Check your blood pressure every evening and send it to Dr. Richardson. Do not take the medication before you hear from Dr. Richardson. Do not take the medication if your blood pressure is below 120/70 mmHg. Discontinued mecobalamin (vitamin B12) 1,000 mcg tablet,disintegrating 1,000 mcg sublingual DAILY Qty: 30 2RF Rx Instructions: place tablet under tongue and allow to dissolve for at least30 secs before swallowing vitamin A palmitate 3,000 mcg (10,000 unit) capsule 10,000 unit PO DAILY Qty: 30 2RF thiamine HCl (vitamin B1) 100 mg tablet 100 mg PO DAILY Qty: 30 2RF omega 1-jde-eab-fish oil [Fish Oil] 300-1,000 mg capsule 1 cap PO DAILY Ultra CoQ10 75 mg capsule 75 mg PO DAILY multivitamin Tablet 1 tab PO DAILY Discharge Orders: Discharge Order (Routine); Ordered 07/25/23 Ordered By: Jamel Richardson Activity on Discharge: No heavy lifting Stand Alone Forms: Patient Portal Discharge page Care Plan Goals: weight loss Health Concerns: morbid obesity Plan of Treatment: No tub baths, sex or returning to work until discussed at first post op appointment. No exercise, alcohol, tobacco or illegal drug use. Continue to use incentive spirometer hourly while awake. Walk in home for 5- 10 minutes every 2 hours during the first week. Continue phase 1 diet today and start phase 2 diet tomorrow morning. Follow all instructions in the bariatric handbook and call with any questions. 1. Please call your doctor or come back to the emergency room should any new symptoms arise. 2. You will receive a courtesy call from [facility] 24-48 hours after discharge. 3. Activity: abstain from alcohol, practice limited stair climbing, no bending, no driving, no exercise, no illicit substances, no lifting, no sex, no tub bath, no work. 4. Diet: continue as discussed with bariatric team.. 5. Dressing Change/Wound Care: Do not change or remove surgical dressings unless they are wet or soiled. 6. Call your doctor if: - Your temperature exceeds 101.5 F - You experience excessive pain or swelling - You have an unexpected reaction to medication - You have excessive bleeding - You experience continued vomiting/nausea - Your incision begins to separate - Your incision shows signs of infection such as increased redness, swelling, excessive pain, heat, or drainage (light blood or clear fluid is normal) 7. General instructions: No lifting greater than 5 lbs for 1 week and not more than 20lbs the next 3?weeks. No driving until seen at the office in 5-7 days after surgery. If you do not move your bowels in the next 2 days, please tell?Dr. Richardson. Please walk around your home every hour or two to prevent blood clots from forming in your legs. You do not need to wake from sleeping to walk. Please sleep in a bed or couch to prevent kinking at the hips and knees. Please take your incentive spirometer (your lung supply chain director) home with you and use it for the next few days to prevent pneumonia. You may shower, no hot tubs, baths or swimming pools.?Please follow the post op diet instructions you are?given by Dr Yo richardson? and text me daily at 5-6pm for an update.?If you have any issues or concerns or questions please communicate this to him via text.? The Celebrate shakes have all of the bariatric vitamins you need if you consume these shakes. If you are drinking other protein shakes, you will need to purchase the Celebrate multivitamins and calcium that are available in the hospital gift shop on the first floor of the [facility].??Do not take anything without first discussing with Dr Richardson. Please make sure you are consuming at least 40 ounces of fluids per day starting the?day AFTER your discharge from the hospital. Always drink 1-2 ml per minute using the 5ml?syringe. If you drink faster you may experience?bloating,?gas pain, burping, nausea or heartburn. In that case please slow down your pace and use the syringe to?understand better the?proper?pace and volume of drinking. Do not hesitate to contact the office with any questions at . The patient's medical history has been reviewed and they are considered low risk for post op DVT and therefore DVT prophylaxis is not considered necessary. Travel after surgery was reviewed. The patient has not disclosed any travel plans during the first 30 days after surgery and they have been advised that wi thin the first 30 days after surgery any bus, plane, train or car travel over 2 hours in duration is contraindicated due to the possibility of developing blood clots from immobility. Any travel, needs to include periods of ambulation of 10 minutes in duration every 2 hours. The patient was instructed to discuss any plans for travel during this period with their bariatric surgeon. Assessment: stable, post op sleeve gastrectomy Discharge Date/Time: 07/25/23 10:16
[2023-07-24 13:58] LABS: Hematocrit 37.7 % (37.0-47.0); Hemoglobin 13.3 g/dl (12.0-16.0)
[2023-07-24 14:04] LABS: Anion Gap 11 (12-20); Blood Urea Nitrogen 8 mg/dL (9-16); Carbon Dioxide 24 mmol/L (22-29); Chloride 108 mmol/L (96-108); Creatinine Clr Calc Pharmacy 128.2; Estimated Glomerular Filt Rate > 60; Glucose Random 127 mg/dL (60-115); Potassium 4.5 mmol/L (3.3-5.1); Sodium 138 mmol/L (135-145)
[2023-07-24] MEDS: Famotidine/PF 20 MG/2 ML VIAL IVPUSH ×2 (14:27→21:04)
[2023-07-24] MEDS: ceFAZolin Sodium/Dextrose,Iso 2 GM/50 ML PIGGYBACK IV (16:04)
[2023-07-24] MEDS: Acetaminophen 1,000 MG/100 ML PIGGYBACK 16.7 MG IV (18:24)
[2023-07-24] MEDS: 0.9 % Sodium Chloride Flush 3 ML SYRINGE IVFLUSH (21:04)
[2023-07-24] MEDS: Labetalol HCL 100 MG TABLET 150 MG PO (21:04)
[2023-07-25] MEDS: Acetaminophen 1,000 MG/100 ML PIGGYBACK 16.7 MG IV (01:18)
[2023-07-25 03:05] VITALS: BP 138/82; PULSE 80; RESP 16; TEMP 36; O2SAT 95
[2023-07-25 06:30] LABS: MANUAL DIFF FLAG NO
[2023-07-25 06:34] LABS: Basophils Percent Auto 0.1 % (0-2); Hematocrit 38.8 % (37.0-47.0); Hemoglobin 13.8 g/dl (12.0-16.0); Imm Gran Abs Auto 0.07 X10*3/uL (0.00-0.03); Imm Gran Pct Auto 0.5 % (0.0-0.4); Mean Corpuscular HGB Conc 35.6 g/dl (31.0-35.0); Mean Corpuscular Hemoglobin 30.7 pg (27.0-33.0); Mean Corpuscular Volume 86.2 fL (80.0-98.0); Mean Platelet Volume 10.5 fL (9.4-12.3); Monocytes Absolute Auto 0.7 X10*3/uL (0.1-1.2); Monocytes Percent Auto 5.1 % (2-11); Neutrophils Absolute Auto 12.3 x10*3/uL (2.0-8.3); Neutrophils Percent Auto 87.3 % (45-73); Platelet Count 312 X10*3/uL (160-400); Red Cell Distribution Width 11.7 % (11.0-16.0)
[2023-07-25 06:52] LABS: Anion Gap 16 (12-20); Blood Urea Nitrogen 7 mg/dL (9-16); Calcium 9.5 mg/dL (8.4-10.2); Carbon Dioxide 19 mmol/L (22-29); Chloride 108 mmol/L (96-108); Creatinine Clr Calc Pharmacy 135.5; Estimated Glomerular Filt Rate > 60; Glucose Random 115 mg/dL (60-115); Sodium 139 mmol/L (135-145)
[2023-07-25 07:12] VITALS: BP 133/80; PULSE 84; RESP 20; TEMP 36.6; O2SAT 97
[2023-07-25] MEDS: Famotidine/PF 20 MG/2 ML VIAL IVPUSH (07:36)
[2023-07-25] MEDS: Labetalol HCL 100 MG TABLET 150 MG PO (07:36)
[2023-07-25] MEDS: 0.9 % Sodium Chloride Flush 3 ML SYRINGE IVFLUSH (07:36)
--- NOTE | 2023-07-25 08:45 | PC.NURSE ---
Dressing changed in center site per PA request. Pt given extra dressing supplies to bring home.
--- NOTE | 2023-07-25 09:37 | MHC.CM.PN ---
Female 33 S/P Kimberly quintana She lives with her spouse. She is independent. DP home self care spouse tx. DDischarged today.
--- NOTE | 2023-07-25 09:46 | HO.POSTANES ---
Post Anesthesia Evaluation Post Anesthesia Evaluation Date of Service: 07/25/23 Vital Signs: Vital Signs Temp Pulse Resp BP Pulse Ox O2 Del Method 07/25/23 07:12 97.8 F 84 20 133/80 97 Room Air 07/25/23 03:05 96.8 F 80 16 138/82 95 Room Air 07/24/23 23:54 96.8 F 82 16 139/85 95 Room Air Anesthesia: General Endotracheal-GETA Mental Status: Awake Pain Control: Satisfactory Nausea/Vomiting: None Hydration: Adequate Anesthesia-Related Issues: No Anes. Related Issues
[2023-07-28 11:53] LABS: Factor VIII Activity 65 % normal (50-180); PTT, Activated 41 sec (23-32); Ristocetin Cofactor 68 % normal (42-200)
== END 2023-07-25 10:16 | disposition home or self-care (01) | DRG 403 ==
LOC: HO.SSSA 10:40 → HO.S3 13:01
PROVIDERS: Nurse Practitioner; Physician Assistant; Admitting Provider Surgery; PCP Nurse Practitioner; Visit Provider Surgery
PROC: 0DB64Z3 Excision of Stomach, Percutaneous Endoscopic Approach, Vertical (ICD-10-PCS; CPT 43845; principal; 2023-07-24 10:10)
DX: E66.01 Morbid (severe) obesity due to excess calories (principal); D68.62 Lupus anticoagulant syndrome; I10 Essential (primary) hypertension; N97.0 Female infertility associated with anovulation; Z79.899 Other long term (current) drug therapy; Z68.41 Body mass index [BMI] 40.0-44.9, adult
CPT/HCPCS: 36415; 80048; 81025; 85014; 85018; 85025; 85240; 85245; 85246; 85247; 85250; 85610; 85730; 86850; 86900; 86901; 88304; 88305; 88307; 88342; 99024; A4649; C9088; C9145; J0131; J0690; J1100; J1170; J2250; J2405; J2704; J2795; J3010; J7120

== ENCOUNTER → 2023-07-24 08:27 | Outpatient (BNV) | payer BC, SELFPAY | PROVIDERS: Admitting Provider Surgery; PCP Nurse Practitioner; Visit Provider Surgery | DX: E66.01 Morbid (severe) obesity due to excess calories (principal); Z68.41 Body mass index [BMI] 40.0-44.9, adult; Z90.3 Acquired absence of stomach [part of]; Z98.84 Bariatric surgery status | CPT/HCPCS: 43659; 43775; 99024 ==

== ENCOUNTER 2023-07-31 10:17 | Outpatient (AMB) | payer BC, SELFPAY ==
--- NOTE | 2023-07-31 10:56 | A.OFFVIS_ITS ---
Intake VS Expanded 07/31/23 11:29 BP 137/74 Blood Pressure Location Rt brachial Blood Pressure Position Sitting Pulse 63 Pulse Source Pulse Oximeter Temp 97.9 F Temperature Source Temporal Artery Scan Pulse Oximetry 98 Oxygen Delivery Method Room Air Height 5 ft 4 in Weight 230 lb 9.6 oz BMI 39.6 Body Fat % 45.8 Body Fat Mass 105.6 Fat Free Mass 124.8 Visceral Fat Rating 12.0 Body Water % 38.9 Body Water Mass 89.6 Muscle Mass/Score 118.4 Basal Metabolic Rate/Score 1,777 Intake Visit Reasons: (OV) PO LSG 07/24/23 Allergies tree nut Allergy (Severe, Verified 07/31/23 11:08) mouth itching/severe GI pain doxycycline Allergy (Intermediate, Verified 07/31/23 11:08) Vomiting tropical fruits Allergy (Severe, Uncoded 07/18/23 08:38) mouth itching/severe GI pain HPI HPI Comments History of Present Illness Details 33-year-old female returns the office to day in follow-up. She is approximately 7 days postop laparoscopic sleeve gastrectomy performed on 07/24/[address] Richardson. She is tolerating 3 celebrate foreign 1 shakes with 1 scoop each and 50 oz of fluid per day. Positive bowel movement, no significant pain. [facility] Medical History (Updated 07/26/23 @ 00:03 by Ghazala Sosa) Adjustment disorder, unspecified Vitamin B1 deficiency Vitamin A deficiency Vitamin B12 deficiency History of in vitro fertilization Miscarriage Infertility associated with anovulation Hypertension Morbid obesity Surgical History (Updated 07/31/23 @ 11:10 by Donita Maldonado CMA) S/P gastric sleeve procedure History of facial surgery History of D&C Family History Mother No problems noted. 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 Original weight on 05/07/2023 was 277.8 pounds and op weight was 248.3 pounds. Be sure to text Dr Richardson exactly 1 week after surgery your weight from your home scale so he can adjust your meal plan. Continue meal plan until f/u w Claudette in 2 weeks May shower, no submersion in bath for another week Continue abdominal binder with activity and exercise for the next 2 weeks. Exercise prior to surgery was stationary bike, may resume No abdominal exercises for 6 weeks post operatively Will be emailed link to post op video for review Reminded of the pace of drinking, 2 mL per minute, 1 oz/15 min. She will discuss with Dr. Richardson how long she needs to continue on the fondaparinux Coding Level of Care Code Global (67988) Diagnoses S/P gastric sleeve procedure Z90.3
[2023-07-31 11:29] VITALS: BP 137/74; PULSE 63; TEMP 36.6; O2SAT 98; BMI 39.6
== END 2023-07-31 12:31 | disposition home or self-care (01) ==
PROVIDERS: PCP Nurse Practitioner; Visit Provider Physician Assistant Surgical
DX: E66.9 Obesity, unspecified (principal); Z68.39 Body mass index [BMI] 39.0-39.9, adult; Z90.3 Acquired absence of stomach [part of]; Z98.84 Bariatric surgery status
CPT/HCPCS: 99024

== ENCOUNTER → 2023-07-31 10:17 | Outpatient (BNVA) | payer BC, SELFPAY | PROVIDERS: PCP Nurse Practitioner; Visit Provider Physician Assistant Surgical ==

== ENCOUNTER 2023-08-14 11:38 | Outpatient (AMB) | payer BC, SELFPAY ==
--- NOTE | 2023-08-14 11:33 | A.OFFVIS_ITS ---
Intake VS Expanded 08/14/23 11:45 Height 5 ft 4 in Weight 224 lb 2 oz BMI 38.5 Intake Visit Reasons: (TV) PO LSG 07/24/23 Allergies tree nut Allergy (Severe, Verified 07/31/23 11:08) mouth itching/severe GI pain doxycycline Allergy (Intermediate, Verified 07/31/23 11:08) Vomiting tropical fruits Allergy (Severe, Uncoded 07/18/23 08:38) mouth itching/severe GI pain Medication List - Last Reconciled 08/14/23 by MIKAELA Biswas fondaparinux 2.5 mg (0.5 mL) subcut Q24H labetalol 150 mg PO BID pantoprazole 40 mg PO DAILY sucralfate 10 mL PO BID HPI HPI Comments History of Present Illness Details This?is a?33?yo female who is s/p LSG 07/24/2023. Presents for 3 week post op visit. Weight loss of 6.4lbs since last visit 2 weeks ago.? No complaints of nausea, emesis, abdominal pain or reflux, or constipation. Interested in starting some solid foods. Checking BP and adjusting labetalol dose according to measurements. Continues on fondaparinux. Present meal plan includes: 8-10am Celebrate 4:1 powder, 2 scoops 11am-1pm 2 scoops 4:1 2-4pm Rebuild 2 scoops 5-8pm ZP bar or Celebrate Exercise routine includes: stationary bike, 6 days/week for 350 calories [facility] Medical History (Updated 08/14/23 @ 11:41 by MIKAELA Biswas) Adjustment disorder, unspecified Vitamin B1 deficiency Vitamin A deficiency Vitamin B12 deficiency History of in vitro fertilization Miscarriage Infertility associated with anovulation Hypertension Morbid obesity Surgical History (Updated 07/31/23 @ 11:10 by Donita Maldonado CMA) S/P gastric sleeve procedure History of facial surgery History of D&C Family History Mother No problems noted. 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 Yo pierson and waiting to hear back from him regarding any change in plan. Will also discuss whether she needs to refill fondaparinux with him. Otherwise she is doing well, getting adequate protein and exercise. RTC 2 weeks. Patient is obese and is not considered stable at this time. I spent a total of 30 minutes reviewing/updating records, examining the patient and counseling the patient on weight management as detailed above. Telehealth Telehealth Location of provider rendering services: practice address Location of patient: address on file Patient Identification confirmed using: Name, : Yes Telehealth method: voice only Patient verbally consented to treatment: Yes Patient verbally consented to billing insurance company: Yes Patient informed of any privacy concerns related to visit: Yes Minutes spent on Phone/Video with Pt.: 12 Coding Level of Care Code Est Pt Level 4 (29281) Diagnoses S/P gastric sleeve procedure Z90.3 Obesity E66.9
[2023-08-14 11:45] VITALS: BMI 38.5
== END 2023-08-14 11:42 | disposition home or self-care (01) ==
LOC: HO.HBS 11:38
PROVIDERS: PCP Nurse Practitioner; Visit Provider Physician Assistant Surgical
DX: E66.9 Obesity, unspecified (principal); Z68.38 Body mass index [BMI] 38.0-38.9, adult; Z90.3 Acquired absence of stomach [part of]; Z98.84 Bariatric surgery status
CPT/HCPCS: 99024

== ENCOUNTER → 2023-08-14 11:38 | Outpatient (BNVA) | payer BC, SELFPAY | PROVIDERS: PCP Nurse Practitioner; Visit Provider Physician Assistant Surgical ==

== ENCOUNTER 2023-09-17 15:27 | Outpatient (AMB) | payer BC, SELFPAY ==
--- NOTE | 2023-09-17 15:04 | A.OFFVIS_ITS ---
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 Presents for 2 month post op visit. Weight today is 210.6 pounds, with a BMI of 36.1. There has been a 67.2 pound weight loss,(initial weight 277.8 pounds) since starting the program on 05/07/2023 reflecting a 24.2 % total body weight loss and a weight loss of 37.7 pounds since surgery (operative weight 248.3 pounds) reflecting a 15.1% TBWL since surgery. No complaints of nausea, emesis, abdominal pain or reflux. Reports infrequent but normal bowel movements every 1- 2 days and uses stool softeners regularly. She states she takes labetolol 1 x per week only if SBP >120. Has appt with pcp next week. She feels as though her meal plan is ok but that the bar 2 x per day is too much. Celebrate MVI every other day although it causes nausea.w and w/o food. Present meal plan includes: Celebrate 4 in 1 1 scoop w 8 oz oat milk 8-10 celebrate or ZP bar 11-1 lunch 4 forks protein and 4 forks veg 2 pm bar 4-6 meal 7 pm shake 1 scoop 4 in 1 in 8 oz oat milk, 8-10 Drinkin-60 oz fluids daily ? Exercise routine includes: stationary bike at home, 6 x per week, [address] per week COUNTS INCLUDE 234 BEDS AT [facility] Medical History Adjustment disorder, unspecified Vitamin B1 deficiency Vitamin A deficiency Vitamin B12 deficiency History of in vitro fertilization Miscarriage Infertility associated with anovulation Hypertension Morbid obesity Surgical History S/P gastric sleeve procedure History of facial surgery History of D&C Family History Mother No problems noted. 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 Return to clinic 3 weeks. Telehealth Telehealth Location of provider rendering services: practice address Location of patient: address on file Patient Identification confirmed using: Name, : Yes Telehealth method: voice only Patient verbally consented to treatment: Yes Patient verbally consented to billing insurance company: Yes Patient informed of any privacy concerns related to visit: Yes Minutes spent on Phone/Video with Pt.: 12 Coding Level of Care Code Global (63271) Diagnoses S/P gastric sleeve procedure Z90.3
[2023-09-17 15:05] VITALS: BMI 36.1
== END 2023-09-17 15:30 | disposition home or self-care (01) ==
LOC: HO.HBS 15:27
PROVIDERS: PCP Nurse Practitioner; Visit Provider Physician Assistant Surgical
DX: E66.9 Obesity, unspecified (principal); Z68.36 Body mass index [BMI] 36.0-36.9, adult; Z90.3 Acquired absence of stomach [part of]; Z98.84 Bariatric surgery status
CPT/HCPCS: 99024

== ENCOUNTER → 2023-09-17 15:27 | Outpatient (BNVA) | payer BC, SELFPAY | PROVIDERS: PCP Nurse Practitioner; Visit Provider Physician Assistant Surgical | DX: Z90.3 Acquired absence of stomach [part of] (principal) ==

== ENCOUNTER 2023-10-15 10:48 | Outpatient (AMB) | payer BC, SELFPAY ==
[2023-10-15 09:13] VITALS: BMI 34.2
--- NOTE | 2023-10-15 09:13 | A.OFFVIS_ITS ---
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 Presents for 3 month post op visit. Weight today is 199.2 pounds, with a BMI of 36.1. There has been a 78.6 pound weight loss,(initial weight 277.8 pounds) since starting the program on 05/07/2023 reflecting a 28.2 % total body weight loss and a weight loss of 49.1 pounds since surgery (operative weight 248.3 pounds) reflecting a 19.7% TBWL since surgery. No complaints of nausea, emesis, abdominal pain or reflux. Reports infrequent but normal bowel movements every 1-2 days and uses stool softeners regularly. She states she is no longer taking labetolol per her PCP whom she saw last week. taking bariatric fusion mvi. She has also noticed some hair loss. She states she started fairlife FF milk instead of the oat milk about 2 weeks ago without communication. She is satisfied with her meal plan overall. Present meal plan includes: Celebrate 4 in 1 1 scoop w 8 oz oat milk 8-10 lunch 4 forks protein and 4 forks veg 1 pm bar - celebrate or ZP 3-5 meal 7 pm - 4 forks protein and 4 forks veg shake 1 scoop 4 in 1 in 8 oz oat milk, 8-10 Drinkin-60 oz fluids daily ? Exercise routine includes: stationary bike at home, 6 x per week, [address] per week [facility] Medical History Adjustment disorder, unspecified Vitamin B1 deficiency Vitamin A deficiency Vitamin B12 deficiency History of in vitro fertilization Miscarriage Infertility associated with anovulation Hypertension Morbid obesity Surgical History S/P gastric sleeve procedure History of facial surgery History of D&C Family History Mother No problems noted. 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 She wishes to continue to use fair life milk and will therefore change her plans slightly: Celebrate 4 in 1 1 scoop w 8 oz oat milk 8-10 lunch 4 forks protein and 4 forks veg 1 pm bar - celebrate or ZP 3-5 meal 7 pm - 4 forks protein and 4 forks veg 1/2 zp or celebrate bar, 8-9 She will continue with her current exercise regimen. Discussed adding a calcium plus D. She continues with bariatric fusion multivitamin which I suggest she take either mid day or at night and then the calcium plus D in the morning. She will return to the office in approximately 4 weeks. She was encouraged to text weekly and if any problems. Telehealth Telehealth Location of provider rendering services: practice address Location of patient: address on file Patient Identification confirmed using: Name, : Yes Telehealth method: voice only Patient verbally consented to treatment: Yes Patient verbally consented to billing insurance company: Yes Patient informed of any privacy concerns related to visit: Yes Minutes spent on Phone/Video with Pt.: 17 Coding Level of Care Code Global (92688) Diagnoses S/P gastric sleeve procedure Z90.3
== END 2023-10-15 10:49 | disposition home or self-care (01) ==
LOC: HO.HBS 10:48
PROVIDERS: PCP Nurse Practitioner; Visit Provider Physician Assistant Surgical
DX: E66.9 Obesity, unspecified (principal); Z68.34 Body mass index [BMI] 34.0-34.9, adult; Z90.3 Acquired absence of stomach [part of]; Z98.84 Bariatric surgery status
CPT/HCPCS: 99024

== ENCOUNTER → 2023-10-15 10:48 | Outpatient (BNVA) | payer BC, SELFPAY | PROVIDERS: PCP Nurse Practitioner; Visit Provider Physician Assistant Surgical ==

== ENCOUNTER 2023-11-12 10:20 | Outpatient (AMB) | payer BC, SELFPAY ==
--- NOTE | 2023-11-12 08:31 | A.OFFVIS_ITS ---
Intake VS Expanded 11/12/23 08:32 Height 5 ft 4 in Weight 188 lb 3.2 oz BMI 32.3 Body Fat % 40 Body Fat Mass 75.2 Fat Free Mass 112.8 Visceral Fat Rating 15 Body Water % 41.2 Body Water Mass 77.5 Muscle Mass/Score 106.2 Basal Metabolic Rate/Score 1,475 Intake Visit Reasons: (TV) PO LSG 07/24/23 Inspector Printed Circuit Boards Required: No Allergies tree nut Allergy (Severe, Verified 07/31/23 11:08) mouth itching/severe GI pain doxycycline Allergy (Intermediate, Verified 07/31/23 11:08) Vomiting tropical fruits Allergy (Severe, Uncoded 07/18/23 08:38) mouth itching/severe GI pain Medication List - Last Reconciled 11/12/23 by MIKAELA Gu [fusion MVI PO DAILY] HPI HPI Comments History of Present Illness Details This?a?33?yo female who is s/p LSG without hiatal hernia repair on?07/24/2023. Presents for 3.5 month post op visit. Weight today is 188.2 pounds, with a BMI of 32.3. There has been a 89.6 pound weight loss,(initial weight 277.8 pounds) since starting the program on 05/07/2023 reflecting a 32.2 % total body weight loss and a weight loss of 60.1 pounds since surgery (operative weight 248.3 pounds) reflecting a 24.2% TBWL since surgery. No complaints of nausea, emesis, abdominal pain or reflux. Reports infrequent but normal bowel movements every 1-2 days and uses stool softeners regularly. She states she is no longer taking labetolol per her PCP whom she saw last week. taking bariatric fusion mvi and maria esther +D. Continues to follow meal plan and exercise plan. Present meal plan includes: using fairlife milk per her request Celebrate 4 in 1 1 scoop w 8 oz milk 8-10 1 pm lunch 4 forks protein and 4 forks v eg bar - celebrate or ZP 3-5 meal 7 pm - 4 forks protein and 4 forks veg 1/2 zp or celebrate bar, 8-9 Drinkin-60 oz fluids daily ? Exercise routine includes: stationary bike at home, 5-6 x per week, [address] per week, yoga 1 x per week [facility] Medical History Adjustment disorder, unspecified Vitamin B1 deficiency Vitamin A deficiency Vitamin B12 deficiency History of in vitro fertilization Miscarriage Infertility associated with anovulation Hypertension Morbid obesity Surgical History S/P gastric sleeve procedure History of facial surgery History of D&C Family History Mother No problems noted. 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 RTC 1 month text weekly with weight measurements and if any questions Telehealth Telehealth Location of provider rendering services: practice address Location of patient: address on file Patient Identification confirmed using: Name, : Yes Telehealth method: voice only Patient verbally consented to treatment: Yes Patient verbally consented to billing insurance company: Yes Patient informed of any privacy concerns related to visit: Yes Minutes spent on Phone/Video with Pt.: 12 Coding Level of Care Code Tele Est Pt Level 3 (80052) Diagnoses Obesity E66.9 Time Spent (min) 18
[2023-11-12 08:32] VITALS: BMI 32.3
== END 2023-11-12 10:29 | disposition home or self-care (01) ==
LOC: HO.HBS 10:20
PROVIDERS: PCP Nurse Practitioner; Visit Provider Physician Assistant Surgical
DX: E66.9 Obesity, unspecified (principal); Z68.32 Body mass index [BMI] 32.0-32.9, adult
CPT/HCPCS: 99442

== ENCOUNTER → 2023-11-12 10:20 | Outpatient (BNVA) | payer BC, SELFPAY | PROVIDERS: PCP Nurse Practitioner; Visit Provider Physician Assistant Surgical ==

== ENCOUNTER 2023-12-12 10:08 | Outpatient (AMB) | payer BC, SELFPAY ==
[2023-12-12 09:57] VITALS: BMI 30.5
--- NOTE | 2023-12-12 09:57 | A.OFFVIS_ITS ---
VS Expanded 12/12/23 09:57 Height 5 ft 4 in Weight 177 lb 9.6 oz BMI 30.5 Body Fat % 37.1 Body Fat Mass 65.8 Fat Free Mass 111.8 Visceral Fat Rating 13 Body Water % 43.2 Body Water Mass 76.7 Muscle Mass/Score 105 Basal Metabolic Rate/Score 1,471 Intake Visit Reasons: (TV) PO LSG 07/24/23 [place] Opener Required: No Allergies tree nut Allergy (Severe, Verified 07/31/23 11:08) mouth itching/severe GI pain doxycycline Allergy (Intermediate, Verified 07/31/23 11:08) Vomiting tropical fruits Allergy (Severe, Uncoded 07/18/23 08:38) mouth itching/severe GI pain Medication List - Last Reconciled 12/12/23 by MIKAELA Gu [fusion MVI PO DAILY] HPI Comments Details: This?a?33?yo female who is s/p LSG without hiatal hernia repair on?07/24/2023. Presents for 5 month post op visit. Weight today is 177.6 pounds, with a BMI of 30.5. There has been a 100.2 pound weight loss,(initial weight 277.8 pounds) since starting the program on 05/07/2023 reflecting a 36 % total body weight loss and a weight loss of 70.7 pounds since surgery (operative weight 248.3 pounds) reflecting a 28.4% TBWL since surgery. No complaints of nausea, emesis, abdominal pain or reflux. Reports infrequent but normal bowel movements every 1- 2 days and uses stool softeners regularly. She states she is no longer taking labetolol and is not having any elevated BP readings. taking bariatric fusion mvi and maria esther +D. Continues to follow meal plan and exercise plan. Energy level is way better. Present meal plan includes: using fairlife milk per her request Celebrate 4 in 1 1/2 scoop w 8 oz milk 8-10 1 pm lunch 4 forks protein and 4 forks veg bar - celebrate or ZP 3-5 meal 7 pm - 4 forks protein and 4 forks veg 1/2 zp or celebrate bar, 8-9 60 oz fluids daily ? Exercise routine includes: stationary bike at home, 5-6 x per week, [address] per week, yoga 1 x per week started weight training for beginners. [facility] Medical History Adjustment disorder, unspecified Vitamin B1 deficiency Vitamin A deficiency Vitamin B12 deficiency History of in vitro fertilization Miscarriage Infertility associated with anovulation Hypertension Morbid obesity Surgical History S/P gastric sleeve procedure History of facial surgery History of D&C Family History Mother No problems noted. 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 Telehealth Telehealth Telehealth Platform: Telephone Location of provider rendering services: practice address Location of patient: address on file Patient Identification confirmed using: Name, : Yes Telehealth method: voice only Patient verbally consented to treatment: Yes Patient verbally consented to billing insurance company: Yes Patient informed of any privacy concerns related to visit: Yes Minutes spent on Phone/Video with Pt.: 15 Assessment & Plan Assessment & Plan (1) Overweight (BMI 25.0-29.9): Code(s): E66.3 - Overweight Category: Medical Plan: Overall making excellent progress, down 100 pounds. slight change to meal plan: using fairlife milk per her request Celebrate 4 in 1 1/2 scoop w 8 oz milk 8-10 1 pm lunch 4 forks protein and 4 forks veg bar - celebrate or ZP 3-5 meal 7 pm - 4 forks protein and 4 forks veg 1/2 cup fresh fruit, 8-9 rtc for 6 month post op appt and labs in late january
== END 2023-12-12 10:28 | disposition home or self-care (01) ==
LOC: HO.HBS 10:08
PROVIDERS: PCP Nurse Practitioner; Visit Provider Physician Assistant Surgical
DX: E66.3 Overweight (principal); Z68.30 Body mass index [BMI] 30.0-30.9, adult; Z90.3 Acquired absence of stomach [part of]; Z98.84 Bariatric surgery status
CPT/HCPCS: 99442

== ENCOUNTER → 2023-12-12 10:08 | Outpatient (BNVA) | payer BC, SELFPAY | PROVIDERS: PCP Nurse Practitioner; Visit Provider Physician Assistant Surgical ==

== ENCOUNTER 2024-02-26 11:27 | Outpatient (AMB) | payer BC, SELFPAY ==
--- NOTE | 2024-02-26 11:35 | MHC.OFFVISWM ---
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 Presents for 7 month post op visit. Weight today is 162.4 pounds, with a BMI of 27.9. There has been a 115.4 pound weight loss,(initial weight 277.8 pounds) since starting the program on 05/07/2023 reflecting a 41.5 % total body weight loss and a weight loss of 85.9 pounds since surgery (operative weight 248.3 pounds) reflecting a 34.5% TBWL since surgery. No complaints of nausea, emesis, abdominal pain or reflux. Reports infrequent but normal bowel movements every 1-2 days and uses stool softeners regularly. She states she is no longer taking labetolol and is not having any elevated BP readings. taking bariatric fusion mvi and maria esther +D. Continues to follow meal plan and exercise plan. Energy level is way better. Feels great Present meal plan includes: using [employer] milk per her request Celebrate 4 in 1 1/2 scoop w 8 oz milk 8-10 1 pm lunch 4 forks protein and 4 forks veg bar - celebrate or ZP 3-5 meal 7 pm - 4 forks protein and 4 forks veg 1/2 cup fresh fruit, 8-9 or 1/2 protein bar 60 oz fluids daily ? Exercise routine includes: stationary bike at home, 6 x per week, 2000 maria esther per week, yoga 1 x per week started weight training for beginners. Any post op complications: none FRANKI: never DM: never HTN: resolved Hyperlipidemia: never GERD:?0-5 scale ??0 = no symptoms ??1 = symptoms noticeable but not bothersome 2 =symptoms bothersome but not daily ? 3 = symptoms bothersome and daily 4 = symptoms affect daily activities 5 = symptoms are incapacitating, unable to do daily activities ? How bad is the heartburn: 0 ? Heartburn while lying down: 0 ? Heartburn when standing up: 0 ? Heartburn after meals: 0 ? Does heartburn change your diet: 0 ? Does heartburn wake you up from sleep: 0 ? Do you have difficulty swallowin ? Do you have pain with swallowin ? If you take medicine for your reflux, does this affect your daily life: 0 Satisfaction with present condition - satisfied or not satisfied: satisfied [facility] Medical History Adjustment disorder, unspecified Vitamin B1 deficiency Vitamin A deficiency Vitamin B12 deficiency History of in vitro fertilization Miscarriage Infertility associated with anovulation Hypertension Morbid obesity Surgical History S/P gastric sleeve procedure History of facial surgery History of D&C Family History Mother No problems noted. 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 She is very happy with her meal plan. She is exercising regularly. We will check six-month postoperative labs. Encouraged to text weekly with her weight and if any questions or concerns. Arrange follow-up appointments. Orders: Orders Insulin Today D68.61 - Antiphospholipid syndrome, E66.9 - Obesity, unspecified, I10 - Essential (primary) hypertension, Z90.3 - Acquired absence of stomach [part of] Lipid Panel Today D68.61 - Antiphospholipid syndrome, E66.9 - Obesity, unspecified, I10 - Essential (primary) hypertension, Z90.3 - Acquired absence of stomach [part of] Vitamin B12 and Folate Today D68.61 - Antiphospholipid syndrome, E66.9 - Obesity, unspecified, I10 - Essential (primary) hypertension, Z90.3 - Acquired absence of stomach [part of] Zinc Today D68.61 - Antiphospholipid syndrome, E66.9 - Obesity, unspecified, I10 - Essential (primary) hypertension, Z90.3 - Acquired absence of stomach [part of] C Reactive Protein Today D68.61 - Antiphospholipid syndrome, E66.9 - Obesity, unspecified, I10 - Essential (primary) hypertension, Z90.3 - Acquired absence of stomach [part of] Vitamin B1 Today D68.61 - Antiphospholipid syndrome, E66.9 - Obesity, unspecified, I10 - Essential (primary) hypertension, Z90.3 - Acquired absence of stomach [part of] Ferritin Today D68.61 - Antiphospholipid syndrome, E66.9 - Obesity, unspecified, I10 - Essential (primary) hypertension, Z90.3 - Acquired absence of stomach [part of] Hemoglobin A1c Today D68.61 - Antiphospholipid syndrome, E66.9 - Obesity, unspecified, I10 - Essential (primary) hypertension, Z90.3 - Acquired absence of stomach [part of] Complete Blood Count Auto Diff Today D68.61 - Antiphospholipid syndrome, E66.9 - Obesity, unspecified, I10 - Essential (primary) hypertension, Z90.3 - Acquired absence of stomach [part of] IRON PROFILE Today D68.61 - Antiphospholipid syndrome, E66.9 - Obesity, unspecified, I10 - Essential (primary) hypertension, Z90.3 - Acquired absence of stomach [part of] Comprehensive Met. Panel Today D68.61 - Antiphospholipid syndrome, E66.9 - Obesity, unspecified, I10 - Essential (primary) hypertension, Z90.3 - Acquired absence of stomach [part of] Vitamin A Today D68.61 - Antiphospholipid syndrome, E66.9 - Obesity, unspecified, I10 - Essential (primary) hypertension, Z90.3 - Acquired absence of stomach [part of] TSH reflex Free T4 Today D68.61 - Antiphospholipid syndrome, E66.9 - Obesity, unspecified, I10 - Essential (primary) hypertension, Z90.3 - Acquired absence of stomach [part of] Vitamin D 25-OH Total Today D68.61 - Antiphospholipid syndrome, E66.9 - Obesity, unspecified, I10 - Essential (primary) hypertension, Z90.3 - Acquired absence of stomach [part of]
[2024-02-26 11:41] VITALS: BP 152/79; PULSE 81; TEMP 36.5; O2SAT 100; BMI 27.9
== END 2024-02-26 12:19 | disposition home or self-care (01) ==
PROVIDERS: PCP Nurse Practitioner; Visit Provider Physician Assistant Surgical
DX: E66.3 Overweight (principal); Z68.37 Body mass index [BMI] 37.0-37.9, adult; Z90.3 Acquired absence of stomach [part of]; Z98.84 Bariatric surgery status
CPT/HCPCS: 99214

== ENCOUNTER → 2024-02-26 11:27 | Outpatient (BNVA) | payer BC, SELFPAY | PROVIDERS: PCP Nurse Practitioner; Visit Provider Physician Assistant Surgical ==

== ENCOUNTER 2024-02-29 07:43 | Outpatient (REF) | payer BC, SELFPAY ==
[2024-02-29 07:57] LABS: MANUAL DIFF FLAG NO
[2024-02-29 08:33] LABS: Basophils Percent Auto 0.6 % (0-2); Eosinophils Absolute Auto 0.3 X10*3/uL (0.0-0.4); Eosinophils Percent Auto 3.9 % (0-4); Hemoglobin 14.4 g/dl (12.0-16.0); Imm Gran Abs Auto 0.01 X10*3/uL (0.00-0.03); Imm Gran Pct Auto 0.1 % (0.0-0.4); Lymphocytes Absolute Auto 1.9 X10*3/uL (1.2-4.9); Mean Corpuscular HGB Conc 35.1 g/dl (31.0-35.0); Mean Corpuscular Hemoglobin 32.1 pg (27.0-33.0); Mean Corpuscular Volume 91.5 fL (80.0-98.0); Mean Platelet Volume 10.6 fL (9.4-12.3); Monocytes Absolute Auto 0.5 X10*3/uL (0.1-1.2); Monocytes Percent Auto 7.1 % (2-11); Neutrophils Absolute Auto 4.2 x10*3/uL (2.0-8.3); Neutrophils Percent Auto 61.3 % (45-73); Platelet Count 269 X10*3/uL (160-400); Red Blood Count 4.48 X10*6/uL (4.20-5.50); Red Cell Distribution Width 12.3 % (11.0-16.0); White Blood Count 6.9 X10*3/uL (4.8-10.8)
[2024-02-29 09:03] LABS: Alanine Aminotransferase 16 U/L (0-31); Albumin Level 4.4 g/dL (3.5-5.0); Alkaline Phosphatase 53 U/L (39-117); Anion Gap 14 (12-20); Aspartate Amino Transferase 11 U/L (5-31); Bilirubin Total 0.9 mg/dL (0.0-1.0); Blood Urea Nitrogen 16 mg/dL (9-16); C Reactive Protein 0.18 mg/dL (< or = 0.50); Calcium 9.4 mg/dL (8.4-10.2); Carbon Dioxide 27 mmol/L (22-29); Chloride 103 mmol/L (96-108); Cholesterol 177 mg/dL (<200); Estimated Glomerular Filt Rate > 60; Glucose Random 84 mg/dL (60-115); HDL Cholesterol 46 mg/dL (>40); Iron 142 mcg/dL (30-160); LDL Cholesterol Calculated 115 mg/dL (<100); Percent Iron Saturation 50 % (15-50); Potassium 3.6 mmol/L (3.3-5.1); Sodium 140 mmol/L (135-145); Total Iron Binding Capacity 284 mcg/dL (228-428); Total Protein 6.9 g/dL (6.5-8.0); Triglycerides 80 mg/dL (<150); Unsaturated Iron Binding 142 ug/dL
[2024-02-29 09:08] LABS: Estimated Average Glucose 80 mg/dL; Hemoglobin A1c % 4.4 % (<6.0)
[2024-02-29 09:31] LABS: Folate 6.4 ng/mL (> or = 4.0); Vitamin B12 900 pg/mL (200-900)
[2024-02-29 09:45] LABS: Ferritin 119 ng/mL (10-122); Insulin 2 uU/mL (2-29); TSH reflex Free T4 1.19 uIU/mL (0.32-4.0); Vitamin D 25-OH Total 74.4 ng/mL (>30)
[2024-03-05 01:39] LABS: Zinc 78 mcg/dL (60-130)
[2024-03-06 02:53] LABS: Vitamin A 28 mcg/dL (38-98)
[2024-03-07 14:53] LABS: Vitamin B1 27 nmol/L (8-30)
== END 2024-02-29 07:44 | disposition home or self-care (01) ==
LOC: HO.LAB 07:43
PROVIDERS: PCP Nurse Practitioner; Visit Provider Physician Assistant Surgical
DX: Z90.3 Acquired absence of stomach [part of] (principal); D68.61 Antiphospholipid syndrome; I10 Essential (primary) hypertension; E66.9 Obesity, unspecified; Z13.1 Encounter for screening for diabetes mellitus
CPT/HCPCS: 36415; 80053; 80061; 82306; 82607; 82728; 82746; 83036; 83525; 83540; 84425; 84443; 84590; 84630; 85025; 86140

== ENCOUNTER → 2024-03-31 08:17 | Outpatient (BNV) | payer BC, SELFPAY | PROVIDERS: PCP Nurse Practitioner; Visit Provider Internal Medicine Medical Oncology | DX: D68.62 Lupus anticoagulant syndrome (principal) | CPT/HCPCS: 99204; 99213 ==

== ENCOUNTER 2024-06-17 16:18 | Outpatient (REF) | payer BC, SELFPAY ==
[2024-06-21 20:44] LABS: Vitamin A 35 mcg/dL (38-98)
== END 2024-06-17 16:19 | disposition home or self-care (01) ==
LOC: HO.LAB 16:18
PROVIDERS: PCP Nurse Practitioner; Visit Provider Physician Assistant Surgical
DX: R79.89 Other specified abnormal findings of blood chemistry (principal); Z90.3 Acquired absence of stomach [part of]
CPT/HCPCS: 36415; 84590

== ENCOUNTER 2024-07-24 08:46 | Outpatient (AMB) | payer BC, SELFPAY ==
--- NOTE | 2024-07-24 08:50 | A.OFFVIS_ITS ---
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 Presents for 1 year post op visit. Weight today is 153.8 pounds, with a BMI of 26.4. There has been a 124 pound weight loss,(initial weight 277.8 pounds) since starting the program on 05/07/2023 reflecting a 44.6 % total body weight loss and a weight loss of 94.5 pounds since surgery (operative weight 248.3 pounds) reflecting a 38% TBWL since surgery. No complaints of nausea, emesis, abdominal pain or reflux. Reports infrequent but normal bowel movements every 1- 2 days and uses stool softeners regularly. She states she is no longer taking labetolol and is not having any elevated BP readings. taking bariatric fusion mvi and maria esther +D. Continues to follow meal plan and exercise plan. Energy level is way better. Feels great, completed vitamin A Present meal plan includes: using [employer]life milk per her request Celebrate 4 in 1 1/2 scoop w 8 oz milk 8-10 1 pm lunch 4 forks protein and 4 forks veg bar - celebrate or ZP 3-5 meal 7 pm - 4 forks protein and 4 forks veg 1/2 cup fresh fruit, 8-9 or 1/2 protein bar 60 oz fluids daily ? Exercise routine includes: stationary bike at home, 1 hr 4-5 x per week, 400 maria esther, you tube videos 1-2 x per week HIIT, approx 300 maria esther, Any post op complications: none FRANKI: never DM: never HTN: resolved Hyperlipidemia: never GERD:?0-5 scale ??0 = no symptoms ??1 = symptoms noticeable but not bothersome 2 =symptoms bothersome but not daily ? 3 = symptoms bothersome and daily 4 = symptoms affect daily activities 5 = symptoms are incapacitating, unable to do daily activities ? How bad is the heartburn: 0 ? Heartburn while lying down: 0 ? Heartburn when standing up: 0 ? Heartburn after meals: 0 ? Does heartburn change your diet: 0 ? Does heartburn wake you up from sleep: 0 ? Do you have difficulty swallowin ? Do you have pain with swallowin ? If you take medicine for your reflux, does this affect your daily life: 0 Satisfaction with present condition - satisfied or not satisfied: satisfied [facility] Medical History Adjustment disorder, unspecified Vitamin B1 deficiency Vitamin A deficiency Vitamin B12 deficiency History of in vitro fertilization Miscarriage Infertility associated with anovulation Hypertension Morbid obesity Surgical History S/P gastric sleeve procedure History of facial surgery History of D&C Family History Mother No problems noted. 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 Physical Exam Vital Signs: Last Vital Signs Temp 99.0 F 07/24/24 09:05 Pulse 60 07/24/24 09:05 BP 139/66 07/24/24 09:05 Pulse Ox 100 07/24/24 09:05 Oxygen Delivery Method Room Air 07/24/24 09:05 BMI result Body Mass Index 26.4 Const General: cooperative and no acute distress Orientation/consciousness: patient oriented x3 Resp Effort & Inspection: normal respiratory effort Auscultation: clear to auscultation bilaterally Cardio Rate: regular rate Rhythm: regular rhythm GI Inspection: Yes normal to inspection and Yes incision (well healed) Palpation (GI): Soft to palpation and no masses Neuro General: patient oriented x3 Assessment & Plan Assessment & Plan (1) S/P gastric sleeve procedure: Code(s): Z90.3 - Acquired absence of stomach [part of] Category: Surgical Plan: Overall doing very well, 1 year post surgery. She has lost approximately 120 lb since initial presentation. She is satisfied with her meal plan and wishes to continue. She is exercising regularly. No complaints of excess skin at this time. We will check 1 year postop labs. Return to clinic 6 months. (2) Low serum vitamin A: Code(s): R79.89 - Other specified abnormal findings of blood chemistry Category: Medical Plan: Follow-up lab data Orders: Orders Complete Blood Count Auto Diff Today I10 - Essential (primary) hypertension, R79.1 - Abnormal coagulation profile, R79.89 - Other specified abnormal findings of blood chemistry, Z90.3 - Acquired absence of stomach [part of] Lipid Panel Today I10 - Essential (primary) hypertension, R79.1 - Abnormal coagulation profile, R79.89 - Other specified abnormal findings of blood chemistry, Z90.3 - Acquired absence of stomach [part of] Comprehensive Met. Panel Today I10 - Essential (primary) hypertension, R79.1 - Abnormal coagulation profile, R79.89 - Other specified abnormal findings of blood chemistry, Z90.3 - Acquired absence of stomach [part of] Vitamin B1 Today I10 - Essential (primary) hypertension, R79.1 - Abnormal coagulation profile, R79.89 - Other specified abnormal findings of blood chemistry, Z90.3 - Acquired absence of stomach [part of] TSH reflex Free T4 Today I10 - Essential (primary) hypertension, R79.1 - Abnormal coagulation profile, R79.89 - Other specified abnormal findings of blood chemistry, Z90.3 - Acquired absence of stomach [part of] Vitamin D 25-OH Total Today I10 - Essential (primary) hypertension, R79.1 - Abnormal coagulation profile, R79.89 - Other specified abnormal findings of blood chemistry, Z90.3 - Acquired absence of stomach [part of] Insulin Today I10 - Essential (primary) hypertension, R79.1 - Abnormal coagulation profile, R79.89 - Other specified abnormal findings of blood chemi stry, Z90.3 - Acquired absence of stomach [part of] Hemoglobin A1c Today I10 - Essential (primary) hypertension, R79.1 - Abnormal coagulation profile, R79.89 - Other specified abnormal findings of blood chemistry, Z90.3 - Acquired absence of stomach [part of] IRON PROFILE Today I10 - Essential (primary) hypertension, R79.1 - Abnormal coagulation profile, R79.89 - Other specified abnormal findings of blood chemistry, Z90.3 - Acquired absence of stomach [part of] Vitamin B12 and Folate Today I10 - Essential (primary) hypertension, R79.1 - Abnormal coagulation profile, R79.89 - Other specified abnormal findings of blood chemistry, Z90.3 - Acquired absence of stomach [part of] Zinc Today I10 - Essential (primary) hypertension, R79.1 - Abnormal coagulation profile, R79.89 - Other specified abnormal findings of blood chemistry, Z90.3 - Acquired absence of stomach [part of] C Reactive Protein Today I10 - Essential (primary) hypertension, R79.1 - Abnormal coagulation profile, R79.89 - Other specified abnormal findings of blood chemistry, Z90.3 - Acquired absence of stomach [part of] Vitamin A Today I10 - Essential (primary) hypertension, R79.1 - Abnormal coagulation profile, R79.89 - Other specified abnormal findings of blood chemistry, Z90.3 - Acquired absence of stomach [part of] Ferritin Today I10 - Essential (primary) hypertension, R79.1 - Abnormal coagulation profile, R79.89 - Other specified abnormal findings of blood chemistry, Z90.3 - Acquired absence of stomach [part of]
[2024-07-24 09:05] VITALS: BP 139/66; PULSE 60; TEMP 37.2; O2SAT 100; BMI 26.4
--- OUTSIDE RECORDS SUMMARY | 2024-07-24 09:06 | XMS_ITS | Data Portability ---
Author Organization [place] - [facility], autoContract - [facility] Address , [address] Assessment No assessment recorded. Plan of Treatment Reminders Order Date Submit Date Provider Last Modified By Organization Details Last Modified Time Details Appointments ANNUAL EXAM 2024 08:30A M Nancy Velasquez, DNP, [employer] Not available Not available Not available Lab urinalysi s, dipstick 2023 024 [email or web address] [id number] , [address] [place], [address], 07/07/2024 16:24:30 Referral None recorded. Procedures None recorded. Surgeries None recorded. Imaging None recorded. Medication Orders None recorded. Patient TargetsNo targets recorded. Patient Instructions Encounter Date Encounter Id Patient Instructions Last Modified By Organization Details Last Modified Time 07/07/2024 [id number] - Informed pt that her blood pressure and labs look great - Pt is to continue to follow up with other specialists - Pt received flu vaccine in left arm and tdap vaccine in right arm in office today - No other questions or concerns at this time Not available 07/07/2024 09:38:24 Reason for Referral None Reported. Results Created Date Observation Date Name Description Value Unit Range Abnormal Flag Note LastModifiedBy Organization Detail LastModifiedTime 06/28/2006/29/2024 LIPID PANEL WITH REFLE X TO DIREC T LDL cholesterol, total 168 mg/dL <200 normal Not Available [facility] [address], [place], [address], 06/29/2024 04:30:34 06/28/20 24 06/29/2024 LIPID PANEL WITH REFLE X TO DIREC T LDL HDL cholesterol 55 mg/dL > or = 50 normal Not Available [facility] [address], [place], [address], 06/29/2024 04:30:34 06/28/20 24 06/29/2024 LIPID PANEL WITH REFLE X TO DIREC T LDL triglyceride s 52 mg/dL <150 normal Not Available [facility] [address], [place], [address], 06/29/2024 04:30:34 06/28/2006/29/2024 LIPID PANEL WITH REFLE X TO DIREC T LDL LDL-choleste rol 100 mg/dL _(maria esther c) high Refer ence range : <100 Karen able range <100 mg/dL for prima ry preve ntion ; <70 mg/dL for patie nts with CHD or diabe tic patie nts with > or = 2 CHD risk facto rs. LDL-C is now calcu lated using the Rachel n-Hop kins calcu latio n, which is a valid ated novel stefanoo d elio valdezte r accur acy than the Fried radha equat ion in the estim ation of LDL-C . Rachel washington SS et al. RAMYA. 2013; 310(1 9): 2061- 2068 (http ://ed ucati on.Netsocket [employer]. com/f aq/FA Q164) Not Available [facility] [address], [place], [address], 06/29/2024 04:30:34 06/28/20 24 06/29/2024 LIPID PANEL WITH REFLE X TO DIREC T LDL chol/HDLC ratio 3.1 (calc ) <5.0 normal Not Available [facility] [address], [place], [address], 06/29/2024 04:30:34 06/28/20 24 06/29/2024 LIPID PANEL WITH REFLE X TO DIREC T LDL non HDL cholesterol 113 mg/dL _(maria esther c) <130 normal For patie nts with diabe meme plus 1 major ASCVD risk facto r, treat ing to a non-H DL-C goal of <100 mg/dL (LDL- C of <70 mg/dL ) is juan elizalde peutrich c optio n. Not Available [facility] [address], [place], [address], 06/29/2024 04:30:34 06/28/20 24 06/29/2024 COMPR EHENS ALEXIA METAB OLIC PANEL glucose 77 mg/dL 65-99 normal Fasti ng refer ence inter meghan Not Available [facility] [address], [place], [address], 06/29/2024 04:30:35 06/28/20 24 06/29/2024 COMPR EHENS ALEXIA METAB OLIC PANEL urea nitrogen (BUN) 17 mg/dL 7-25 normal Not Available [facility] [address], [place], [address], 06/29/2024 04:30:35 06/28/20 24 06/29/2024 COMPR EHENS ALEXIA METAB OLIC PANEL creatinine 0.73 mg/dL 0.50-0 .97 normal Not Available [facility] [address], [place], [address], 06/29/2024 04:30:35 06/28/20 24 06/29/2024 COMPR EHENS ALEXIA METAB OLIC PANEL eGFR 110 mL/mi n/1.7 3m2 > or = 60 normal Not Available [facility] [address], [place], [address], 06/29/2024 04:30:35 06/28/20 24 06/29/2024 COMPR EHENS ALEXIA METAB OLIC PANEL BUN/creatini ne ratio SEE NOTE: (calc ) 6-22 Not Repor kenny: BUN and Creat inine are withi n refer ence range . Not Available [facility] [address], [place], [address], 06/29/2024 04:30:35 06/28/20 24 06/29/2024 COMPR EHENS ALEXIA METAB OLIC PANEL sodium 138 mmol/ L 135-14 6 normal Not Available [facility] [address], [place], [address], 06/29/2024 04:30:35 06/28/20 24 06/29/2024 COMPR EHENS ALEXIA METAB OLIC PANEL potassium 4.7 mmol/ L 3.5-5. 3 normal Not Available [facility] [address], [place], [address], 06/29/2024 04:30:35 06/28/20 24 06/29/2024 COMPR EHENS ALEXIA METAB OLIC PANEL chloride 104 mmol/ L 98-110 normal Not Available [facility] [address], [place], [address], 06/29/2024 04:30:35 06/28/20 24 06/29/2024 COMPR EHENS ALEXIA METAB OLIC PANEL carbon dioxide 29 mmol/ L 20-32 normal Not Available [facility] [address], [place], [address], 06/29/2024 04:30:35 06/28/20 24 06/29/2024 COMPR EHENS ALEXIA METAB OLIC PANEL calcium 9.4 mg/dL 8.6-10 .2 normal Not Available [facility] [address], [place], [address], 06/29/2024 04:30:35 06/28/20 24 06/29/2024 COMPR EHENS ALEXIA METAB OLIC PANEL protein, total 6.8 g/dL 6.1-8. 1 normal Not Available [facility] [address], [place], [address], 06/29/2024 04:30:35 06/28/20 24 06/29/2024 COMPR EHENS ALEXIA METAB OLIC PANEL albumin 4.3 g/dL 3.6-5. 1 normal Not Available [facility] [address], [place], [address], 06/29/2024 04:30:35 06/28/20 24 06/29/2024 COMPR EHENS ALEXIA METAB OLIC PANEL globulin 2.5 g/dL_ (calc ) 1.9-3. 7 normal Not Available [facility] [address], [place], [address], 06/29/2024 04:30:35 06/28/20 24 06/29/2024 COMPR EHENS ALEXIA METAB OLIC PANEL albumin/glob ulin ratio 1.7 (calc ) 1.0-2. 5 normal Not Available [facility] [address], [place], [address], 06/29/2024 04:30:35 06/28/20 24 06/29/2024 COMPR EHENS ALEXIA METAB OLIC PANEL bilirubin, total 0.8 mg/dL 0.2-1. 2 normal Not Available [facility] [address], [place], [address], 06/29/2024 04:30:35 06/28/20 24 06/29/2024 COMPR EHENS ALEXIA METAB OLIC PANEL alkaline phosphatase 48 U/L 31-125 normal Not Available [facility] [address], [place], [address], 06/29/2024 04:30:35 06/28/20 24 06/29/2024 COMPR EHENS ALEXIA METAB OLIC PANEL AST 11 U/L 10-30 normal Not Available [facility] [address], [place], [address], 06/29/2024 04:30:35 06/28/20 24 06/29/2024 COMPR EHENS ALEXIA METAB OLIC PANEL ALT 16 U/L 6-29 normal Not Available [facility] [address], [place], [address], 06/29/2024 04:30:35 06/28/2006/29/2024 CBC (INCL UDES DIFF/ PLT) white blood cell count 5.9 thous and/u L 3.8-10 .8 normal Not Available [facility] [address], [place], [address], 06/29/2024 04:30:36 06/28/20 24 06/29/2024 CBC (INCL UDES DIFF/ PLT) red blood cell count 4.47 amanda on/uL 3.80-5 .10 normal Not Available [facility] [address], [place], [address], 06/29/2024 04:30:36 06/28/2006/29/2024 CBC (INCL UDES DIFF/ PLT) hemoglobin 13.9 g/dL 11.7-1 5.5 normal Not Available [facility] [address], [place], [address], 06/29/2024 04:30:36 06/28/20 24 06/29/2024 CBC (INCL UDES DIFF/ PLT) hematocrit 42.4 % 35.0-4 5.0 normal Not Available [facility] [address], [place], [address], 06/29/2024 04:30:36 06/28/20 24 06/29/2024 CBC (INCL UDES DIFF/ PLT) MCV 94.9 fL 80.0-1 00.0 normal Not Available [facility] [place] [facility] [address], [place], [address], 06/29/2024 04:30:36 06/28/20 24 06/29/2024 CBC (INCL UDES DIFF/ PLT) MCH 31.1 pg 27.0-3 3.0 normal Not Available [facility] [place] [facility] [address], [place], [address], 06/29/2024 04:30:36 06/28/20 24 06/29/2024 CBC (INCL UDES DIFF/ PLT) MCHC 32.8 g/dL 32.0-3 6.0 normal For adult s, a sligh t decre ase in the calcu lated MCHC value (in the range of 30 to 32 g/dL) is most likel y not clini josé signi fican t; osvaldo er, it shoul d be inter prete d with cauti on in the [facility] n with other red cell venita eters and the patie nt's clini maria esther condi tion. Not Available [facility] [place] [facility] [address], [place], [address], 06/29/2024 04:30:36 06/28/20 24 06/29/2024 CBC (INCL UDES DIFF/ PLT) RDW 12.1 % 11.0-1 5.0 normal Not Available [facility] [place] [facility] [address], [address], 06/29/2024 04:30:36 06/28/20 24 06/29/2024 CBC (INCL UDES DIFF/ PLT) platelet count 281 thous and/u L 140-40 0 normal Not Available [facility] [place] [facility] [address] [place], [address], 06/29/2024 04:30:36 06/28/20 24 06/29/2024 CBC (INCL UDES DIFF/ PLT) MPV 10.7 fL 7.5-12 .5 normal Not Available [facility] [place] [facility] [address], [place], [address], 06/29/2024 04:30:36 06/28/20 24 06/29/2024 CBC (INCL UDES DIFF/ PLT) absolute neutrophils 3092 cells /uL 1500-7 800 normal Not Available [facility] [place] [facility] [address], [place], [address], 06/29/2024 04:30:36 06/28/20 24 06/29/2024 CBC (INCL UDES DIFF/ PLT) absolute lymphocytes 1982 cells /uL 850-39 00 normal Not Available [facility] [place] [facility] [address], [place], [address], 06/29/2024 04:30:36 06/28/20 24 06/29/2024 CBC (INCL UDES DIFF/ PLT) absolute monocytes 543 cells /uL 200-95 0 normal Not Available [facility] [place] [facility] [address], [place], [address], 06/29/2024 04:30:36 06/28/20 24 06/29/2024 CBC (INCL UDES DIFF/ PLT) absolute eosinophils 242 cells /uL 15-500 normal Not Available [facility] [place] [facility] [address], [place], [address], 06/29/2024 04:30:36 06/28/20 24 06/29/2024 CBC (INCL UDES DIFF/ PLT) absolute basophils 41 cells /uL 0-200 normal Not Available [facility] [place] [facility] [address], [place], [address], 06/29/2024 04:30:36 06/28/20 24 06/29/2024 CBC (INCL UDES DIFF/ PLT) neutrophils 52.4 % normal Not Available [facility] [place] [facility] [address], [place], [address], 06/29/2024 04:30:36 06/28/20 24 06/29/2024 CBC (INCL UDES DIFF/ PLT) lymphocytes 33.6 % normal Not Available [facility] [address], [place], [address], 06/29/2024 04:30:36 06/28/2006/29/2024 CBC (INCL UDES DIFF/ PLT) monocytes 9.2 % normal Not Available [facility] [address], [place], [address], 06/29/2024 04:30:36 06/28/20 24 06/29/2024 CBC (INCL UDES DIFF/ PLT) eosinophils 4.1 % normal Not Available [facility] [address], [place], [address], 06/29/2024 04:30:36 06/28/20 24 06/29/2024 CBC (INCL UDES DIFF/ PLT) basophils 0.7 % normal Not Available [facility] [place] [facility] [address], [address], 06/29/2024 04:30:36 06/28/20 24 06/29/2024 TSH W/REF GINO TO FT4 TSH w/reflex to FT4 0.73 mIU/L normal Refer ence Range > or = 20 Years 0.40- 4.50 Pregn marleen Range s First trime ster 0.26- 2.66 Secon d trime ster 0.55- 2.73 Third trime ster 0.43- 2.91 Not Available [facility] [place] [facility] [address], [place], [address], 06/29/2024 04:30:37 06/28/2006/29/2024 HEMOG LOBIN A1C hemoglobin A1C 4.7 %_of_ total _HGB <5.7 normal For the purpo se of beatris tyson for the prese nce of diabe meme: <5.7% Consi stent with the absen ce of diabe meme 5.7-6 .4% Consi stent with incre ased risk for diabe meme (pred iabet es) > or =6.5% Consi stent with diabe meme This assay resul t is consi stent with a decre ased risk of diabe meme. Curre ntly, no conse nsus exist s regar ding use of hemog lobin A1c for diagn osis of diabe meme in child qasim. Accor ding to Ameri can Diabe meme Assoc iatio n (ADA) guide lines , hemog lobin A1c <7.0% repre sents optim al contr ol in non-p regna nt diabe tic patie nts. Diffe rent metri cs may apply to speci fic patie nt popul ation s. Stand ards of Medic al Care in Diabe meme(A DA). Not Available [facility] [place] [facility] [address], [place], [address], 06/29/2024 04:30:38 Result Notes None recorded. Problems Name Problem SNOMED Code Status Onset Date Resolution Date Notes Provider Name and Address Organization Details Recorded Time Hypertensive disorder 36086591 Completed 202307/07/2024 Debra gilmore, [facility] 4 09:10:08 Antiphosphol ipid syndrome 75932890 Active 2023 Debra gilmore [facility] 4 09:15:29 Problem Notes None recorded. Procedures Surgical History Date Name Laterality Status Provider Name and Address Organization Details Recorded Time 3 Gastric Bypass completed Debra Amanda [facility] 07/07/2024 09:06:37 [facility] 07/07/2024 09:10:19 cosmetic surgery completed Debra [facility] 07/07/2024 09:10:30 Imaging Results None recorded. Procedure Notes None recorded. Medical Equipment None Reported. Allergies Allergen ID Allergen Name Allergen Category Reaction Reaction Severity Criticality Documentation Date Start Date Code Code System Note Provider Name and Address Organization Details Recorded Time 1846 doxycycli ne Not available Not available Not available Not available 07/07/2024 3640 RxNorm Debra Amanda [facility] 09:08:16 Medications Name Sig Start Date Stop Date Status Note LastModified by Organization Details LastModified Time vitamin A 3,000 mcg (10,000 unit) capsule Take 1 capsule every day by oral route. active Not Available Not Available No t Available Vitals Date Recorded Body weight Body temperature Body mass index (BMI) Body height Heart rate Oxygen saturation Oxygen saturation in Arterial blood by Pulse oximetry Systolic blood pressure Diastolic blood pressure Provider Name and Address Organization Details Last Updated DateTime 4 22171.6 3 g 97.7 [degF] 28 kg/m2 162.56 cm 60 /min 99 % 99 % 118 mm[Hg] 74 mm[Hg] Debra Amanda [facility] 09:07:58 Social History Question Answer Notes LastModified by Organizat ion Details LastModified Time Tobacco Smoking Status [facility] 09:12:02 What Is Your Level Of Alcohol Consumption? Occasional Information not available 07/07/2024 How Many Times Per Week Do You Consume Alcohol? 1-2 Times Per Week Information not available 07/07/2024 Which Illicit Or Recreational Drugs Have You Used? Marijuana Edibles Occasionaloly Information not available 07/07/2024 Are You Sexually Active? Yes Information not available 07/07/2024 Do You Use Any Illicit Or Recreational Drugs? Yes Information not available 07/07/2024 Has Tobacco Cessation Counseling Been Provided? No Information not available 07/07/2024 Do You Or Have You Ever Used Any Other Forms Of Tobacco Or Nicotine? No Information not available 07/07/2024 Sex: Unknown Functional Status None recorded. Mental Status None recorded. Family History Relationship Description Onset Age of this Age Resolved Age Notes LastModified by Organization Details LastModified Time Sister Malignant neoplastic disease Not available 2023 09:10:51 Father Diabetes mellitus Not available 2023 09:10:58 Father Hypertensive disorder Not available 2023 09:11:08 Father Heart disease Not available 2023 09:11:15 Brother Hypertensive disorder Not available 2023 09:11:08 Medical History No medical history recorded. Gynecological History Statement/Question Response Date of LMP 2024 Sexually Active? Y Obstetrics History GPAL:G 0 P 0 0 0 0 Immunizations Vaccine Type Date Status Note Provider Nam e and Address Organization Details Recorded Time Influenza, MDCK, trivalent, PF 07/07/2024 completed Nancy Velasquez DNP, [employer] [address] [place], [address], [facility] 07/14/2024 09:04:06 Tdap 07/07/2024 completed Nancy Velasquez DNP, [employer] [address] [place], [address], [facility] 07/14/2024 09:04:06 Past Encounters Encounter ID Performer Location Encounter Start Date Encounter Closed Date Diagnosis/Indication Diagnosis SNOMED-CT Code Diagnosis ICD10 Code [id number] Nancy Velasquez DNP, [employer] [id number] [address] [place] [address] 07/07/2024 08:56:15 07/07/2024 09:42:55 Active or passive immunization 319781005 Z23 Adult heal th examination 294877939 Z00.00 Health Concerns Section Related Observation LastModified by Organization Detai ls LastModified Time None Recorded Concern Status LastModified by Organization Details LastModified Time None Recorded Advance Directives Directive None Recorded Payers Encounter Date Sequence Insurance Name Policy Number Policy Sherman Covered Member ID Sherman Member ID Guarantor Name 07/07/2024 1 [place] Mini Wynne [id number] Mini Wynne Notes Date Note Type Note Provider Name and Address Organization Details Recorded Time 07/07/2024 text/html Annual WellnessReported bypatient.Diet and Nutrition:follows recommended diet; Protein heavy diet Fracture Risk:no history of fractures; no recent explained fracture; no sudden unexplained fractures; no previous musculoskeletal injuries Physical Activity:exercises on a regular basis; good physical condition Additional Lifestyle Factors:no tobacco use; no intimate partner violence; no high risk sexual behavior; drinks alcohol (mild-moderate) Depression Risk:never feels sad, empty, or tearful; no loss of interest in activities; no significant changes in weight; no sleep disturbances or insomnia; no agitation; no loss of energy; no feelings of worthlessness or guilt; no thoughts of suicide; no history of depression; no history of mood disorders Hearing:no loss of hearing Vision:no vision problems Pt is here for her annual physical exam, she had a pap smear in 2020 that was normal. Pt sees Dr. Sanchez for reproductive endocrinology who does her pap smears, Dr Wang for bariatric surgery who prescribes her Vitamin A and Dr. Rajput for hematology as needed for antiphospholipid syndrome. Pt is requesting flu & tdap vaccines today as she is due. Pt denies questions or concerns. Nancy Velasquez, LYDIA, [employer] [address] [place], [address], [facility] 07/14/2024 09:04:08 OBGyn Episode No OBEpisode recorded.
== END 2024-07-24 09:38 | disposition home or self-care (01) ==
PROVIDERS: PCP Nurse Practitioner; Visit Provider Physician Assistant Surgical
DX: E50.9 Vitamin A deficiency, unspecified (principal); Z90.3 Acquired absence of stomach [part of]; E66.3 Overweight; Z68.26 Body mass index [BMI] 26.0-26.9, adult
CPT/HCPCS: 99213

== ENCOUNTER → 2024-07-24 08:46 | Outpatient (BNVA) | payer BC, SELFPAY | PROVIDERS: PCP Nurse Practitioner; Visit Provider Physician Assistant Surgical | DX: Z90.3 Acquired absence of stomach [part of] (principal); D68.61 Antiphospholipid syndrome; I10 Essential (primary) hypertension; E66.9 Obesity, unspecified ==

== ENCOUNTER 2025-01-30 08:45 | Outpatient (AMB) | payer BC, SELFPAY ==
--- NOTE | 2025-01-30 09:17 | MHC.OFFVISWM ---
VS Expanded 01/30/25 09:25 BP 151/87 H Blood Pressure Location Rt brachial Blood Pressure Position Sitting Pulse 68 Pulse Source Pulse Oximeter Temp 98.1 F Temperature Source Temporal Artery Scan Pulse Oximetry 100 Oxygen Delivery Method Room Air Height 5 ft 4 in Weight 156 lb BMI 26.8 Body Fat % 29.3 Body Fat Mass 45.6 Fat Free Mass 110.2 Visceral Fat Rating 4.0 Body Water % 50.6 Body Water Mass 79.0 Muscle Mass/Score 104.8 Basal Metabolic Rate/Score 1,493 Intake Visit Reasons: (oV) PO LSG 07/24/23 Allergies tree nut Allergy (Severe, Verified 01/30/25 09:20) mouth itching/severe GI pain doxycycline Allergy (Intermediate, Verified 01/30/25 09:20) Vomiting tropical fruits Allergy (Severe, Uncoded 04/22/24 12:01) mouth itching/severe GI pain HPI Comments Details: This?a?34?yo female who is s/p LSG without hiatal hernia repair on?07/24/2023. Presents for 1 year 6 month post op visit. Weight today is 156 pounds, with a BMI of 26.8. There has been a 121.8 pound weight loss,(initial weight 277.8 pounds) since starting the program on 05/07/2023 reflecting a 43.8 % total body weight loss and a weight loss of 94.5 pounds since surgery (operative weight 248.3 pounds) reflecting a 38% TBWL since surgery. No complaints of nausea, emesis, abdominal pain or reflux. Reports infrequent but normal bowel movements every 1-2 days and uses stool softeners regularly. She states she is no longer taking labetolol and is not having any elevated BP readings. taking bariatric fusion mvi and maria esther +D. Continues to follow meal plan and exercise plan. Energy level is way better. Feels great, completed vitamin A, did not get blood work done that was ordered in July. Reminded to get this done Present meal plan includes: using [employer] milk per her request Celebrate 4 in 1 1/2 scoop w 8 oz milk 8-10 1 pm lunch 4 forks protein and 4 forks veg bar - celebrate or ZP 3-5 meal 7 pm - 4 forks protein and 4 forks veg 1/2 cup fresh fruit, 8-9 or 1/2 protein bar 60 oz fluids daily ? Exercise routine includes: stationary bike at home, 1 hr 5 x per week, 400 maria esther, you tube videos 1-2 x per week HIIT, approx 300 maria esther, Any post op complications: none FRANKI: never DM: never HTN: resolved Hyperlipidemia: never GERD:?0-5 scale ??0 = no symptoms ??1 = symptoms noticeable but not bothersome 2 =symptoms bothersome but not daily ? 3 = symptoms bothersome and daily 4 = symptoms affect daily activities 5 = symptoms are incapacitating, unable to do daily activities ? How bad is the heartburn: 0 ? Heartburn while lying down: 0 ? Heartburn when standing up: 0 ? Heartburn after meals: 0 ? Does heartburn change your diet: 0 ? Does heartburn wake you up from sleep: 0 ? Do you have difficulty swallowin ? Do you have pain with swallowin ? If you take medicine for your reflux, does this affect your daily life: 0 Satisfaction with present condition - satisfied or not satisfied: satisfied [facility] Medical History Adjustment disorder, unspecified Vitamin B1 deficiency Vitamin A deficiency Vitamin B12 deficiency History of in vitro fertilization Miscarriage Infertility associated with anovulation Hypertension Morbid obesity Surgical History S/P gastric sleeve procedure History of facial surgery History of D&C Family History Mother No problems noted. 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 She has lost over 120 lb and offers no complaints at today's visit. She was reminded to get her blood work done that was ordered in July. She will continue her meal plan and exercise plan, incorporating body weight exercises such as squats, lunges, pushups, sit-ups, plank. She will follow-up in the office in 6 months, sooner should she have any problems or concerns.
[2025-01-30 09:25] VITALS: BP 151/87; PULSE 68; TEMP 36.7; O2SAT 100; BMI 26.8
== END 2025-01-30 09:36 | disposition home or self-care (01) ==
LOC: HO.HBS 08:46
PROVIDERS: PCP Nurse Practitioner; Visit Provider Physician Assistant Surgical
DX: E66.3 Overweight (principal); Z68.26 Body mass index [BMI] 26.0-26.9, adult; Z90.3 Acquired absence of stomach [part of]; Z98.84 Bariatric surgery status
CPT/HCPCS: 99213

== ENCOUNTER 2025-01-30 08:45 | Outpatient (REF) | payer BC, SELFPAY ==
[2025-01-30 09:50] LABS: MANUAL DIFF FLAG NO
[2025-01-30 10:42] LABS: Basophils Absolute Auto 0.1 X10*3/uL (0.0-0.2); Eosinophils Absolute Auto 0.2 X10*3/uL (0.0-0.4); Eosinophils Percent Auto 4.4 % (0-4); Hematocrit 41.7 % (37.0-47.0); Hemoglobin 14.6 g/dl (12.0-16.0); Lymphocytes Absolute Auto 1.7 X10*3/uL (1.2-4.9); Lymphocytes Percent Auto 35.1 % (20-40); Mean Corpuscular Hemoglobin 31.2 pg (27.0-33.0); Mean Corpuscular Volume 89.1 fL (80.0-98.0); Mean Platelet Volume 10.3 fL (9.4-12.3); Monocytes Absolute Auto 0.4 X10*3/uL (0.1-1.2); Monocytes Percent Auto 8.4 % (2-11); Neutrophils Absolute Auto 2.4 x10*3/uL (2.0-8.3); Neutrophils Percent Auto 51.1 % (45-73); Platelet Count 257 X10*3/uL (160-400); Red Blood Count 4.68 X10*6/uL (4.20-5.50); Red Cell Distribution Width 11.9 % (11.0-16.0); White Blood Count 4.8 X10*3/uL (4.8-10.8)
[2025-01-30 10:48] LABS: Estimated Average Glucose 82 mg/dL; Hemoglobin A1c % 4.5 % (<6.0); Total Hemoglobin (HGBA1C) 3824.8039 umol/L
[2025-01-30 11:10] LABS: Alanine Aminotransferase 18 U/L (0-31); Albumin Level 4.6 g/dL (3.5-5.0); Alkaline Phosphatase 51 U/L (39-117); Anion Gap 11 (12-20); Aspartate Amino Transferase 14 U/L (5-31); Bilirubin Total 0.7 mg/dL (0.0-1.0); Blood Urea Nitrogen 14 mg/dL (9-16); C Reactive Protein < 0.10 mg/dL (< or = 0.50); Calcium 9.2 mg/dL (8.4-10.2); Carbon Dioxide 27 mmol/L (22-29); Chloride 107 mmol/L (96-108); Cholesterol 156 mg/dL (<200); Estimated Glomerular Filt Rate > 60; Glucose Random 85 mg/dL (60-115); HDL Cholesterol 50 mg/dL (>40); Iron 90 mcg/dL (30-160); LDL Cholesterol Calculated 96 mg/dL (<100); Percent Iron Saturation 31 % (15-50); Potassium 4.3 mmol/L (3.3-5.1); Sodium 141 mmol/L (135-145); Total Iron Binding Capacity 288 mcg/dL (228-428); Total Protein 6.9 g/dL (6.5-8.0); Triglycerides 54 mg/dL (<150); Unsaturated Iron Binding 198 ug/dL
[2025-01-30 11:36] LABS: Ferritin 55 ng/mL (10-122); Folate 7.7 ng/mL (> or = 4.0); Insulin 4 uU/mL (2-29); TSH reflex Free T4 0.76 uIU/mL (0.32-4.0); Vitamin B12 1280 pg/mL (200-900); Vitamin D 25-OH Total 60.8 ng/mL (>30)
[2025-02-02 23:39] LABS: Zinc 76 mcg/dL (60-130)
[2025-02-03 18:39] LABS: Vitamin A 39 mcg/dL (38-98)
[2025-02-04 16:08] LABS: Vitamin B1 28 nmol/L (8-30)
== END 2025-01-30 08:46 | disposition home or self-care (01) ==
LOC: HO.LAB 08:45
PROVIDERS: PCP Nurse Practitioner; Visit Provider Physician Assistant Surgical
DX: Z90.3 Acquired absence of stomach [part of] (principal); D68.61 Antiphospholipid syndrome; I10 Essential (primary) hypertension; E66.9 Obesity, unspecified; R79.89 Other specified abnormal findings of blood chemistry
CPT/HCPCS: 36415; 80053; 80061; 82306; 82607; 82728; 82746; 83036; 83525; 83540; 84425; 84443; 84590; 84630; 85025; 86140